=== PATIENT | female | born 1950 | race Caucasian/White ===

== ENCOUNTER 2019-12-06 08:10 | Outpatient (REF) | payer MEDICARE, SELFPAY ==
--- NOTE | 2019-12-06 | MM_ITS ---
EXAMINATION: MM SCREENING DIGITAL BREAST TOMOSYNTHESIS, BILATERAL CLINICAL INFORMATION: Screening. Asymptomatic. Family history breast cancer in cousins. The lifetime risk of breast cancer based on the Tyrer-Cuzick Model is 5%. COMPARISON: Mammography: 11/23/2018, 10/24/2017, 10/10/2016, 09/12/2015 TECHNIQUE: Digital breast tomosynthesis is performed in both the craniocaudal and mediolateral oblique views along with computer-aided detection (CAD). Synthesized 2D images are generated from the tomosynthesis. Additional left MLO view is provided. FINDINGS: There are scattered areas of fibroglandular density (ACR BI-RADS breast composition Category b). Breast tissue composition borders on heterogeneously dense in the anterior upper outer quadrant. There are no significant masses, abnormal calcifications, or other abnormalities. Interval pattern is similar to prior studies. No developing density. No significant changes. IMPRESSION: No significant changes from prior studies. ASSESSMENT: BI-RADS 1: Negative RECOMMENDATION: Routine annual mammography screening. This patient's information was entered into a reminder system with a target due date for their next mammogram.
== END 2019-12-06 08:11 | disposition home or self-care (01) ==
LOC: HO.MAMMO 08:10
PROVIDERS: PCP Internal Medicine; Visit Provider Internal Medicine
DX: Z12.31 Encounter for screening mammogram for malignant neoplasm of breast (principal)
CPT/HCPCS: 77063; 77067

== ENCOUNTER 2020-05-04 08:46 | Outpatient (REF) | payer MEDICARE, SELFPAY ==
--- NOTE | ~2020-05-04 | XR_ITS ---
EXAMINATION: XR KNEE, RIGHT XR KNEE STANDING, BILATERAL CLINICAL INFORMATION: Pain right knee. COMPARISON: None TECHNIQUE: AP bilateral knees standing. Right knee 2 views. FINDINGS: AP BILATERAL KNEE: There is reduction in medial and lateral compartment joint space both knees with mild periarticular spurring lateral compartment right knee. No visible acute fracture, dislocation or subluxation seen. The soft tissues are normal. RIGHT KNEE: The tricompartment joint space is reduced with anterior superior patellar enthesophyte. There is mild suprapatellar joint effusion. Mild anterior tibial plateau spurring is visualized. There is no acute fracture or lytic process. XR/XR knee RT 2V IMPRESSION: Mild degenerative changes medial and lateral compartment both knees. Degenerative anterior superior patellar enthesophyte and anterior tibial plateau spurring.
--- NOTE | ~2020-05-04 | XR_ITS ---
EXAMINATION: XR KNEE, RIGHT XR KNEE STANDING, BILATERAL CLINICAL INFORMATION: Pain right knee. COMPARISON: None TECHNIQUE: AP bilateral knees standing. Right knee 2 views. FINDINGS: AP BILATERAL KNEE: There is reduction in medial and lateral compartment joint space both knees with mild periarticular spurring lateral compartment right knee. No visible acute fracture, dislocation or subluxation seen. The soft tissues are normal. RIGHT KNEE: The tricompartment joint space is reduced with anterior superior patellar enthesophyte. There is mild suprapatellar joint effusion. Mild anterior tibial plateau spurring is visualized. There is no acute fracture or lytic process. XR/XR knee standing BI IMPRESSION: Mild degenerative changes medial and lateral compartment both knees. Degenerative anterior superior patellar enthesophyte and anterior tibial plateau spurring.
== END 2020-05-04 08:47 | disposition home or self-care (01) ==
LOC: HO.HOSX 08:46
PROVIDERS: Visit Provider Orthopaedic Surgery
DX: M25.561 Pain in right knee (principal); M25.562 Pain in left knee; S76.301A Unspecified injury of muscle, fascia and tendon of the posterior muscle group at thigh level, right thigh, initial encounter; W01.0XXA Fall on same level from slipping, tripping and stumbling without subsequent striking against object, initial encounter; Y93.01 Activity, walking, marching and hiking; Y92.9 Unspecified place or not applicable; Y99.8 Other external cause status; Z88.1 Allergy status to other antibiotic agents
CPT/HCPCS: 73560; 73565; 99202

== ENCOUNTER 2020-07-02 10:00 | Outpatient (RCR) | payer MEDICARE, SELFPAY ==
--- NOTE | 2020-05-10 13:58 | MHC.PT.EP ---
[facility] [place] Office [place] [facility] [place] [facility] [address] Basia Nowak [address] [phone] F: [phone] F: [phone] F: [phone] F: [phone] Physical Therapy Plan of Care Date of Evaluation: 05/10/20 Date of Surgery: Diagnosis: right leg injury Assessment: The Pt is a 69 y/o female referred to skilled PT for unspecified injury of muscle, fascia, and tendon. Specifically, the Pt reports posterior right knee/upper leg pain. Assessment reveals tenderness to palpation, decreased knee range of motion, impaired strength, decreased quad control, mild inflammation, altered gait pattern, pain, (+) special tests, and decreased muscle length. Related functional limitations include: walking, descending/ascending stairs, squatting, lifting, getting into/out of the bath, housework, hiking, getting in/out of the car, standing. Pt will benefit from skilled PT services 1-2x/week for 5-10 weeks in order to reduce impairments, improve limitations, and implement a comprehensive HEP. Frequency and Duration: The patient will be seen 1-2x/week for 5-10 weeks Short Term Goals: -In 2 weeks, Pt to demonstrate rastafari of right knee extension. -In 3 weeks, Pt to report <6/10 pain w/ 100 ft of ambulation. Mineral Wool Insulation Supervisor Goals: -In 4 weeks, Pt to demonstrate I w/ HEP. -In 5 weeks, to demonstrate the ability to ascend/descend a flight of stairs reciprocally and <3/10 pain. -In 5 weeks, Pt to improve LEFI by at least 9 points. Treatment Plan: Modalities to reduce pain, spasms and effusion. Manual therapy to restore motion and function. Therapeutic exercise to improve strength and flexibility. Neuromuscular re-education for posture and balance. Therapeutic activities to return to functional activities of daily living. Electronically signed by: Melanie Elliott PT, DPT Please sign and return to therapist. Thank you for your referral.
== END 2020-07-27 12:46 | disposition other institution (70) ==
LOC: HO.PTWFD 10:00
PROVIDERS: PCP Internal Medicine; Visit Provider Orthopaedic Surgery
DX: S76.309A Unspecified injury of muscle, fascia and tendon of the posterior muscle group at thigh level, unspecified thigh, initial encounter (principal)
CPT/HCPCS: 97035; 97110; 97140; 97161

== ENCOUNTER → 2020-08-27 10:36 | Outpatient (BNVA) | payer MEDICARE, SELFPAY | PROVIDERS: PCP Internal Medicine; Referring Provider Internal Medicine; Visit Provider Internal Medicine Cardiovascular Disease | DX: R00.2 Palpitations (principal); E78.5 Hyperlipidemia, unspecified | CPT/HCPCS: 99202 ==

== ENCOUNTER → 2020-08-31 07:46 | Outpatient (REF) | payer MEDICARE, SELFPAY ==
--- NOTE | 2020-08-31 07:50 | CA_ITS ---
Acquisition Time: 2020-08-31 07:50:02 Total Exercise Time: 00:08:55 Test Indications: Abnormal ECG Medications: Protocol: SHERIN Max HR: 146 BPM 96% of Pred: 151 BPM Max BP: 138/088 mmHG Max Work Load: 10.1 METS Exercise stress test using Sherin protocol total of 8 min 55 sec. Pt tolerated well, denies any anginal sx. EKG with PVC's and occ. PAC's. No ischemic changes during exercise or in recovery. Normotensive response to exercise. Test reviewed with Dr. Morelos. Referred By: Torsten Arora Overread By: Araceli Gomez NP
== END ==
LOC: HO.CARD 07:46
PROVIDERS: Visit Provider Internal Medicine Cardiovascular Disease
DX: R00.2 Palpitations (principal)
CPT/HCPCS: 93017

== ENCOUNTER 2020-09-28 08:07 | Outpatient (REF) | payer MEDICARE, SELFPAY ==
[2020-09-28 11:27] LABS: MANUAL DIFF FLAG NO
[2020-09-28 11:40] LABS: Basophils Percent Auto 0.5 % (0-2); Eosinophils Absolute Auto 0.1 X10*3/uL (0.0-0.4); Eosinophils Percent Auto 1.4 % (0-4); Hematocrit 41.5 % (37-47); Hemoglobin 13.7 g/dl (12.0-16.0); Imm Gran Abs Auto 0.01 X10*3/uL (0.00-0.03); Imm Gran Pct Auto 0.2 % (0.0-0.4); Lymphocytes Absolute Auto 1.7 X10*3/uL (1.2-4.9); Lymphocytes Percent Auto 39.8 % (20-40); Mean Corpuscular Hemoglobin 31.9 pg (27.0-33.0); Mean Corpuscular Volume 96.7 fL (80-98); Mean Platelet Volume 9.3 fL (9.4-12.3); Monocytes Absolute Auto 0.5 X10*3/uL (0.1-1.2); Monocytes Percent Auto 10.7 % (2-11); Neutrophils Percent Auto 47.4 % (45-73); Platelet Count 246 X10*3/uL (160-400); Red Blood Count 4.29 X10*6/uL (4.20-5.50); Red Cell Distribution Width 13.1 % (11.0-16.0); White Blood Count 4.2 X10*3/uL (4.8-10.8)
[2020-09-28 12:18] LABS: Alanine Aminotransferase 22 U/L (0-31); Albumin Level 4.2 g/dL (3.5-5.0); Alkaline Phosphatase 57 U/L (39-117); Anion Gap 14 (12-20); Aspartate Amino Transferase 26 U/L (5-31); Bilirubin Total 0.6 mg/dL (0.0-1.0); Blood Urea Nitrogen 11 mg/dL (9-16); Calcium 8.9 mg/dL (8.4-10.2); Carbon Dioxide 27 mmol/L (22-29); Chloride 105 mmol/L (96-108); Cholesterol 266 mg/dL; Estimated Glomerular Filt Rate > 60; Glucose Fasting 90 mg/dL (60-99); HDL Cholesterol 75 mg/dL; LDL Cholesterol Calculated 170 mg/dl; Potassium 4.7 mmol/L (3.3-5.1); Sodium 141 mmol/L (135-145); Total Protein 6.8 g/dL (6.5-8.0); Triglycerides 109 mg/dL
[2020-09-28 12:19] LABS: Thyroid Stimulating Hormone 1.48 uIU/mL (0.32-4.0)
== END 2020-09-28 08:08 | disposition home or self-care (01) ==
LOC: HO.WFDLDS 08:07
PROVIDERS: Visit Provider Internal Medicine
DX: R00.0 Tachycardia, unspecified (principal); E78.00 Pure hypercholesterolemia, unspecified
CPT/HCPCS: 36415; 80053; 80061; 84439; 84443; 85025

== ENCOUNTER → 2020-10-05 09:18 | Outpatient (REF) | payer MEDICARE, SELFPAY ==
--- NOTE | 2020-10-05 09:20 | CA_ITS ---
Transthoracic Echocardiogram Patient (Last, First, Middle): Olga Galvez A Gender: Female Date of : 1950 Age: 69 Procedure Date: 10/05/2020 Procedure Type: Transthoracic Echocardiogram Location: OP Height: 160.02 cm Weight: 61.24 kg BSA: 1.64 m2 Heart Rate: bpm BP: 121 / 70 mmHg Child Abuse Worker: Bj MD: Torsten Arora MD Machine Packager: Torsten Arora MD Symptoms: R00.2 - Palpitations Study Quality: Fair ECG Rhythm: Sinus Conclusions: - 1. Normal LV systolic function with grade 1 diastolic dysfunction 2. Trivial aortic regurgitation 3. Normal RV systolic pressure 4. No gross pericardial effusion Findings Left Ventricle Normal left ventricular size, thickness, and systolic function. The visually estimated ejection fraction is between 60-65%. Spectral Doppler is indicative of an impaired relaxation filling pattern. E/E prime ratio is <8, consistent with normal filling pressures. Evidence suggests grade I (mild) diastolic dysfunction. Right Ventricle Normal right ventricular cavity size and systolic function. Atria The left atrium is likely dilated. There is no evidence of interatrial shunt. The right atrium is normal in size. Aortic Valve The aortic valve structure and function is likely normal. There is mild calcification of the aortic valve. There is no aortic valve stenosis. There is trace (trivial) aortic valve regurgitation. Mitral Valve There is mild anterior and posterior mitral leaflet thickening. There is mild mitral annular calcification. There is trace mitral valve regurgitation. There is no mitral valve stenosis. Pulmonic Valve The pulmonic valve was not well visualized. Tricuspid Valve Normal tricuspid valve structure. There is trace tricuspid valve regurgitation. The right ventricular systolic pressure is normal. The right ventricular systolic pressure is 29 mmHg. Normal right atrial pressure. There is no evidence of pulmonary hypertension. Great Vessels All visible segments of the aorta are normal in size. The pulmonary artery was not well visualized. Venous The inferior vena cava is normal in size and collapses greater than 50% with inspiration. Pericardium/Pleural There is no evidence of pericardial effusion. Prior Study Comparison No previous study in the last 5 years for comparison Measurements 2D Linear Measurements RVIDd: 3.02 RVIDd Index: 1.84 IVSd: 0.88 0.6-0.9/0.6-1.0 cm LVIDd: 4.59 3.9-5.3/4.2-5.9 cm LVIDd Index: 2.80 2.4-3.2/2.2-3.1 cm/m2 LVIDs: 3.09 2.0-3.6 cm LVPWd: 0.97 0.7-1.1 cm Ao Root: 3.10 2.1-3.5 cm LA Diam: 4.00 2.7-3.8/3.0-4.0 cm LAIDs Index: 2.44 1.5-2.3 cm/m2 LV Mass: 176.04 67-162/88-224 g LV Mass Index: 107.34 43-95/49-115 g/m2 LVOT Diam: 2.00 3.0+(-)1.3 cm 2D Systolic Function EF 4C: 64.30 >55% EF 2C: 66.60 >55% EF BiP: 65.50 >55% Mitral Valve MV Pk E: 0.47 MV PK A: 0.47 MV Decel Time: 288.00 E/A: 1.00 E'Lateral: 8.81 E'Medial: 6.74 E/E' Med: 6.90 E/E' Lat: 5.30 Aortic Valve AoV Pk David: 1.23 AoV Mn David: 0.89 AoV VTI: 0.28 AoV Pk Grad: 6.00 Aov Mn Grad: 4.00 KIRSTEN Cont.VTI: 2.18 AI Pk David: 3.46 AI Sully: 1.56 LVOT LVOT Pk David: 0.86 LVOT Mn David: 0.59 LVOT VTI: 0.19 LVOT Pk Grad: 3.00 LVOT Mn Grad: 2.00 LVOT Diam: 2.00 LVOT Area: 3.14 Diastolic Function MV Pk E: 0.47 MV Pk A: 0.47 E/A: 1.00 E'Medial: 6.74 E/E' Med: 6.90 E' Laterial: 8.81 E/E' Lat: 5.30 Right Ventricle TAPSE (mm): 24.00 TVS' David: 14.70 Tricuspid Valve TR Pk David: 2.54 TR Pk Grad: 26.00 RA Press: 3.00 RVSP: 29.00 Great Vessels Aorta Ao Root-2D: 3.10 2.0-3.7 cm Ao Asc: 2.90 2.1-3.4 cm Ao Arch: 3.00 Updated in Other Vendor System with Status of Final Torsten Arora MD electronically signed on 10/06/2020 2:06:53 PM with status of Final
== END ==
LOC: HO.CARD 09:18
PROVIDERS: Visit Provider Internal Medicine Cardiovascular Disease
DX: R00.2 Palpitations (principal)
CPT/HCPCS: 93306

== ENCOUNTER → 2020-11-28 13:51 | Outpatient (REF) | payer MEDICARE, SELFPAY ==
--- NOTE | 2020-11-28 13:54 | HM_ITS ---
Hookup date was 11/28/2020 to 12/12/2020 for a total period of 14 days. INDICATION FOR TEST: Palpitation. FINDINGS: The patient was hooked up to cardiac event monitor. Baseline rhythm was normal sinus rhythm with average heart rate from 81 to 121 beats per minute. There were frequent PACs and PVCs noted. The patient did not have any symptoms during that time. On 12/10/2020, the patient complained of urgent symptoms of racing fluttering, which correlated with SVT at 197 beats per minute. The patient then converted subsequently to sinus rhythm after about 25 to 30 minutes of the episode. CONCLUSION: 1. Symptomatic SVT at about 200 beats per minute. 2. Baseline normal sinus rhythm with PACs and PVCs. Torsten Arora MD NRS/MODL / [id number]
== END ==
LOC: HO.CARD 13:51
PROVIDERS: PCP Internal Medicine; Visit Provider Internal Medicine Cardiovascular Disease
DX: R00.2 Palpitations (principal)
CPT/HCPCS: 93270

== ENCOUNTER 2020-12-05 08:55 | Outpatient (REF) | payer MEDICARE, SELFPAY ==
[2020-12-08 01:36] LABS: HPV mRNA E6/E7 rflx Not Detected (Not Detected)
== END 2020-12-05 08:56 | disposition home or self-care (01) ==
LOC: HO.LAB 08:55
PROVIDERS: PCP Internal Medicine; Visit Provider Advanced Practice Midwife
DX: Z01.419 Encounter for gynecological examination (general) (routine) without abnormal findings (principal)
CPT/HCPCS: 87624; 88142

== ENCOUNTER → 2020-12-13 14:42 | Outpatient (BNVA) | payer MEDICARE, SELFPAY | PROVIDERS: PCP Internal Medicine; Referring Provider Internal Medicine; Visit Provider Internal Medicine Cardiovascular Disease | DX: I47.1 Supraventricular tachycardia (principal); E78.5 Hyperlipidemia, unspecified; Z79.899 Other long term (current) drug therapy | CPT/HCPCS: 99212 ==

== ENCOUNTER 2020-12-19 08:38 | Outpatient (REF) | payer MEDICARE, SELFPAY ==
--- NOTE | ~2020-12-19 | MM_ITS ---
EXAMINATION: MM SCREENING DIGITAL BREAST TOMOSYNTHESIS, BILATERAL CLINICAL INFORMATION: Screening. Asymptomatic. The lifetime risk of breast cancer based on the Tyrer-Cuzick Model is 3%. COMPARISON: Mammography: 12/06/2019, 11/23/2018, 11/03/2017 TECHNIQUE: Digital breast tomosynthesis is performed in both the craniocaudal and mediolateral oblique views along with computer-aided detection (CAD). Synthesized 2D images are generated from the tomosynthesis. FINDINGS: There are scattered areas of fibroglandular density (ACR BI-RADS breast composition Category b). There are no significant masses, abnormal calcifications, or other abnormalities. Breast tissue composition borders on heterogeneously dense. Parenchymal pattern is similar to prior studies. No developing density. No architectural abnormality. The axilla and skin contours are unremarkable. MM/MM tomosynthesis screening BI IMPRESSION: No mammographic evidence of malignancy. ASSESSMENT: BI-RADS 1: Negative RECOMMENDATION: Routine annual mammography screening. This patient's information was entered into a reminder system with a target due date for their next mammogram.
== END 2020-12-19 08:39 | disposition home or self-care (01) ==
LOC: HO.MAMMO 08:38
PROVIDERS: Visit Provider Internal Medicine
DX: Z12.31 Encounter for screening mammogram for malignant neoplasm of breast (principal)
CPT/HCPCS: 77063; 77067

== ENCOUNTER 2021-03-04 08:51 | Outpatient (REF) | payer MEDICARE, SELFPAY ==
[2021-03-04 11:58] LABS: Cholesterol 163 mg/dL; HDL Cholesterol 50 mg/dL; LDL Cholesterol Calculated 100 mg/dl; Triglycerides 69 mg/dL
[2021-03-05 13:25] LABS: CRP High Sensitivity 5.7 mg/L
== END 2021-03-04 08:52 | disposition home or self-care (01) ==
LOC: HO.WFDLDS 08:51
PROVIDERS: Visit Provider Internal Medicine Cardiovascular Disease
DX: E78.5 Hyperlipidemia, unspecified (principal); I25.10 Atherosclerotic heart disease of native coronary artery without angina pectoris
CPT/HCPCS: 36415; 80061; 86141

== ENCOUNTER → 2021-03-07 15:10 | Outpatient (BNVA) | payer MEDICARE, SELFPAY | PROVIDERS: PCP Internal Medicine; Referring Provider Internal Medicine; Visit Provider Internal Medicine Cardiovascular Disease | DX: I47.1 Supraventricular tachycardia (principal); R93.1 Abnormal findings on diagnostic imaging of heart and coronary circulation | CPT/HCPCS: 99212 ==

== ENCOUNTER 2021-04-11 08:52 | Outpatient (REF) | payer MEDICARE, SELFPAY ==
[2021-04-11 11:06] LABS: Cholesterol 239 mg/dL; HDL Cholesterol 76 mg/dL; LDL Cholesterol Calculated 146 mg/dl; Triglycerides 87 mg/dL
[2021-04-13 14:22] LABS: CRP High Sensitivity 4.9 mg/L
== END 2021-04-11 08:53 | disposition home or self-care (01) ==
LOC: HO.WFDLDS 08:52
PROVIDERS: Visit Provider Internal Medicine Cardiovascular Disease
DX: E78.5 Hyperlipidemia, unspecified (principal); I25.10 Atherosclerotic heart disease of native coronary artery without angina pectoris
CPT/HCPCS: 36415; 80061; 86141

== ENCOUNTER 2021-04-19 06:28 | Day surgery (SDC) | payer MEDICARE, SELFPAY ==
[2021-04-12 12:33] VITALS: BMI 23.2
[2021-04-19 06:53] VITALS: BP 125/77; PULSE 75; RESP 16; TEMP 36.7; O2SAT 100
--- NOTE | 2021-04-19 07:13 | P.CONAN_ITS ---
[facility] Active Problems Active Problems: All Active Problems (Updated 04/12/21 @ 12:27 by Caitlyn Medina RN) Palpitations (Acute) Elevated coronary artery calcium score (Acute) SVT (supraventricular tachycardia) (Acute) Hyperlipidemia (Acute) Past Medical History Medical History CAD (coronary artery disease) COVID-19 virus infection Dysphagia Elevated cholesterol Elevated coronary artery calcium score Hyperlipidemia SVT (supraventricular tachycardia) WPW (Vmjeh-Fnhwadpsh-Lfgue syndrome) Functional capacity: independent ambulation Patient : No Family History Family History Father Gastric cancer Mother CVD (cardiovascular disease) Family history of problems with anesthesia: No Surgical History Surgical History H/O colonoscopy History of cardiac radiofrequency ablation History of esophagogastroduodenoscopy (EGD) History of surgery on wrist History of surgical removal of ganglion cyst Hx of foot surgery History of Problems with Anesthesia: No Social History Social History Patient Tobacco Use Status: Former Tobacco user Tobacco use type: Cigarette Years Smoked: 10 Advance Directives: No Advance Directives Information Provided: No Advance Directives on File: No Patient : No Current occupational status: retired Current occupation: right handed Meds Allergies Allergy/AdvReac Type Severity Reaction Status Date / Time amoxicillin [AMOXICILLIN] Allergy Unknown HIVES Verified 12/05/20 09:08 Home Medications Medication Instructions Recorded Confirmed Last Taken Type multivitamin 1 tab PO DAILY 08/27/20 03/07/21 Unknown History metoprolol tartrate 25 mg tablet 1 tab PO BID PRN 04/18/21 04/18/21 Unknown History Exam Exam Date and Time: April 19, 2021712 Height,Weight and Vital Signs: Height 5 ft 3 in Weight 59.421 kg Last Vital Signs Temp 98.1 F 04/19/21 06:53 Pulse 75 04/19/21 06:53 Resp 16 04/19/21 06:53 BP 125/77 04/19/21 06:53 Pulse Ox 100 04/19/21 06:53 Airway Mallampati Class: II TM Dist: >3cm Neck ROM: Full Heart: RRR Lungs: CTA Assessment and Plan Final Anesthetic Review Family History of Problems with Anesthesia: No History of Problems with Anesthesia: No NPO: Yes ASA Class: II Final Preanesthetic Review: No Changes in Pt Med Stat, Meds/Allgs Chart Reviewed, Consent Obtained/Reviewed and Anes Risks/Benef Reviewed Patient Risk: Low Procedure Risk: Low Anesthetic Plan Anesthetic Plan: MAC: Disposition: Standard PACU
--- NOTE | 2021-04-19 07:24 | MHC.SHP ---
Pre-Procedural Eval Section A Date of Service: 04/19/21 Section B Chief Complaint: screening Details of Present Illness: screening Relevant Family History (Specify if Yes): No Relevant Social History: None Present Medications: see Short Stay Collaborative assessment Medical History: No relevant PMH History of Previous Operations: No relevant previous surgery Allergies: Allergies Allergy/AdvReac Type Severity Reaction Status Date / Time amoxicillin [AMOXICILLIN] Allergy Unknown HIVES Verified 12/05/20 09:08 Review of Systems Sugical H&P ROS: Negative: Constitution, Cardiovascular, Respiratory, Neurological, Psychiatric, Hem-Onc, Allergic/Immunologic, Gastrointestinal, Genitourinary, Musculoskeletal, Integumentary, Endocrine and Eyes/Ears/Nose/Throat Exam Surgical H&P Exam: Normal: HEENT, Normal: Heart, Normal: Lungs, Normal: Extremities, Normal: Abdomen, Normal: Skin and Normal: Neurological Plan I have reviewed the history and physical and performed a pertinent physical examination on my patient. No changes have occurred unless specified.
[2021-04-19] MEDS: Lactated Ringers 1,000 ML 100 ML IVCONT (07:30)
--- NOTE | 2021-04-19 08:02 | P.BOP_ITS ---
Brief Operative Note Date of Service: 04/19/21 Pre-op diagnosis: screening Post-op diagnosis: same (colon polyp) Procedure: colonoscopy Surgeon: Nic Giraldo Anesthesia: MAC Was an Chemical Radiation Technician used for this Procedure?: No Estimated blood loss (mL): 2 Pathology: other (polyp 60 cm) Condition: stable Disposition: PACU
[2021-04-19 08:05] VITALS: BP 87/54; PULSE 70; RESP 16; TEMP 36.1; O2SAT 95
[2021-04-19 08:20] VITALS: BP 117/65; PULSE 62; RESP 16; TEMP 36.1; O2SAT 99
--- NOTE | 2021-04-19 08:33 | OP_ITS ---
SURGEON: Nic Giraldo MD INDICATIONS: Colon cancer screening. PREOPERATIVE DIAGNOSIS: POSTOPERATIVE DIAGNOSIS: PROCEDURE PERFORMED: Colonoscopy to the terminal ileum with biopsy. ESTIMATED BLOOD LOSS: COMPLICATIONS: ANESTHESIA: Monitored anesthesia care. ASSISTANTS: SPECIMENS: DESCRIPTION OF PROCEDURE: The history and physical were performed. The risks and benefits of the procedure were explained to the patient and informed consent was obtained. The patient was placed in the left lateral decubitus position. A digital rectal exam was performed and was found to be normal. The Olympus pediatric video colonoscope was introduced into the rectum and advanced to the cecum without difficulty. The cecum was identified by transillumination, palpation, and identification of the ileocecal valve. Examination was performed. The scope was removed. She tolerated the procedure well and was returned to the recovery area in stable condition. FINDINGS: The terminal ileum was examined and appeared normal. The visualized colonic mucosa was within normal limits without evidence of masses or ulcers. The quality of the prep was good. A single polyp measuring less than 5 mm was identified at 60 cm and removed with biopsy forceps. No other polyps were identified. There was mild sigmoid diverticulosis. Retroflexed examination showed some small internal hemorrhoids. IMPRESSION: Colon polyp. RECOMMENDATION: Follow up the biopsy results. MD WILVER Kelly/NIHARIKAL / [id number]
--- NOTE | 2021-04-19 11:00 | HO.POSTANES ---
Post Anesthesia Evaluation Post Anesthesia Evaluation Vital Signs: Vital Signs Temp Pulse Resp BP Pulse Ox 04/19/21 08:20 97.0 F 62 16 117/65 99 04/19/21 08:05 96.9 F 70 16 87/54 L 95 04/19/21 06:53 98.1 F 75 16 125/77 100 Anesthesia: Monitored Mental Status: Awake Pain Control: Satisfactory Nausea/Vomiting: None Hydration: Adequate Anesthesia-Related Issues: No Anes. Related Issues
== END 2021-04-19 09:02 | disposition home or self-care (01) ==
PROVIDERS: PCP Internal Medicine; Visit Provider Internal Medicine Gastroenterology
PROC: 0DJD8ZZ Inspection of Lower Intestinal Tract, Via Natural or Artificial Opening Endoscopic (ICD-10-PCS; CPT 45378; principal; 2021-04-19 07:30)
DX: Z12.11 Encounter for screening for malignant neoplasm of colon (principal); D12.4 Benign neoplasm of descending colon; K57.30 Diverticulosis of large intestine without perforation or abscess without bleeding; K64.8 Other hemorrhoids; I45.6 Pre-excitation syndrome; Z82.49 Family history of ischemic heart disease and other diseases of the circulatory system; Z80.0 Family history of malignant neoplasm of digestive organs; Z86.16 Personal history of COVID-19; Z86.11 Personal history of tuberculosis; Z88.0 Allergy status to penicillin
CPT/HCPCS: 45380; 88305

== ENCOUNTER 2021-06-20 08:26 | Outpatient (REF) | payer MEDICARE, SELFPAY ==
[2021-06-20 11:11] LABS: Cholesterol 215 mg/dL; HDL Cholesterol 87 mg/dL; LDL Cholesterol Calculated 115 mg/dl; Triglycerides 68 mg/dL
== END 2021-06-20 08:27 | disposition home or self-care (01) ==
LOC: HO.WFDLDS 08:26
PROVIDERS: Visit Provider Internal Medicine Cardiovascular Disease
DX: E78.5 Hyperlipidemia, unspecified (principal)
CPT/HCPCS: 36415; 80061

== ENCOUNTER 2021-10-10 07:25 | Outpatient (REF) | payer MEDICARE, SELFPAY ==
[2021-10-10 08:39] LABS: Cholesterol 206 mg/dL; HDL Cholesterol 79 mg/dL; LDL Cholesterol Calculated 105 mg/dl; Triglycerides 111 mg/dL
[2021-10-12 11:31] LABS: CRP High Sensitivity 5.6 mg/L
== END 2021-10-10 07:26 | disposition home or self-care (01) ==
LOC: HO.LAB 07:25
PROVIDERS: PCP Internal Medicine; Visit Provider Internal Medicine Cardiovascular Disease
DX: R93.1 Abnormal findings on diagnostic imaging of heart and coronary circulation (principal); E78.5 Hyperlipidemia, unspecified
CPT/HCPCS: 36415; 80061; 86141

== ENCOUNTER 2021-12-25 08:16 | Outpatient (REF) | payer MEDICARE, SELFPAY ==
--- NOTE | ~2021-12-25 | MM_ITS ---
EXAMINATION: MM SCREENING DIGITAL BREAST TOMOSYNTHESIS, BILATERAL CLINICAL INFORMATION: Screening. Asymptomatic. COMPARISON: Mammography: 12/19/2020, 12/06/2019, 11/23/2018 TECHNIQUE: Digital breast tomosynthesis is performed in both the craniocaudal and mediolateral oblique views along with computer-aided detection (CAD). Synthesized 2D images are generated from the tomosynthesis. FINDINGS: There are scattered areas of fibroglandular density (ACR BI-RADS breast composition Category b). There are no significant masses, abnormal calcifications, or other abnormalities. Breast tissue composition borders on heterogeneously dense. There is no architectural abnormality or developing density or significant change from prior studies. The axilla are unremarkable. The skin contours are smooth. MM/MM tomosynthesis screening BI IMPRESSION: No mammographic evidence of malignancy. ASSESSMENT: BI-RADS 1: Negative RECOMMENDATION: Routine annual mammography screening. This patient's information was entered into a reminder system with a target due date for their next mammogram.
== END 2021-12-25 08:17 | disposition home or self-care (01) ==
LOC: HO.MAMMO 08:16
PROVIDERS: Visit Provider Internal Medicine
DX: Z12.31 Encounter for screening mammogram for malignant neoplasm of breast (principal)
CPT/HCPCS: 77063; 77067

== ENCOUNTER 2022-03-05 07:14 | Outpatient (REF) | payer MEDICARE, SELFPAY ==
[2022-03-05 07:28] LABS: MANUAL DIFF FLAG NO
[2022-03-05 07:54] LABS: Basophils Percent Auto 0.4 % (0-2); Eosinophils Absolute Auto 0.1 X10*3/uL (0.0-0.4); Hematocrit 42.4 % (37.0-47.0); Hemoglobin 14.1 g/dl (12.0-16.0); Imm Gran Abs Auto 0.02 X10*3/uL (0.00-0.03); Imm Gran Pct Auto 0.4 % (0.0-0.4); Lymphocytes Absolute Auto 1.5 X10*3/uL (1.2-4.9); Lymphocytes Percent Auto 31.5 % (20-40); Mean Corpuscular HGB Conc 33.3 g/dl (31.0-35.0); Mean Corpuscular Hemoglobin 31.7 pg (27.0-33.0); Mean Corpuscular Volume 95.3 fL (80.0-98.0); Mean Platelet Volume 8.8 fL (9.4-12.3); Monocytes Absolute Auto 0.6 X10*3/uL (0.1-1.2); Monocytes Percent Auto 11.9 % (2-11); Neutrophils Absolute Auto 2.6 x10*3/uL (2.0-8.3); Neutrophils Percent Auto 54.8 % (45-73); Platelet Count 278 X10*3/uL (160-400); Red Blood Count 4.45 X10*6/uL (4.20-5.50); Red Cell Distribution Width 12.3 % (11.0-16.0); White Blood Count 4.8 X10*3/uL (4.8-10.8)
[2022-03-05 08:19] LABS: Cholesterol 143 mg/dL; HDL Cholesterol 64 mg/dL; LDL Cholesterol Calculated 69 mg/dl; Triglycerides 54 mg/dL
[2022-03-05 08:27] LABS: Alanine Aminotransferase 33 U/L (0-31); Albumin Level 4.2 g/dL (3.5-5.0); Alkaline Phosphatase 41 U/L (39-117); Anion Gap 13 (12-20); Aspartate Amino Transferase 34 U/L (5-31); Bilirubin Total 0.4 mg/dL (0.0-1.0); Blood Urea Nitrogen 13 mg/dL (9-16); Calcium 9.6 mg/dL (8.4-10.2); Carbon Dioxide 28 mmol/L (22-29); Chloride 106 mmol/L (96-108); Estimated Glomerular Filt Rate > 60; Glucose Random 95 mg/dL (60-115); Potassium 4.8 mmol/L (3.3-5.1); Sodium 142 mmol/L (135-145); Total Protein 6.5 g/dL (6.5-8.0)
[2022-03-07 14:37] LABS: CRP High Sensitivity 2.7 mg/L
== END 2022-03-05 07:15 | disposition home or self-care (01) ==
LOC: HO.LAB 07:14
PROVIDERS: Absent Provider Internal Medicine; PCP Internal Medicine; Visit Provider Internal Medicine Cardiovascular Disease
DX: I47.1 Supraventricular tachycardia (principal); E78.00 Pure hypercholesterolemia, unspecified; R25.2 Cramp and spasm; R93.1 Abnormal findings on diagnostic imaging of heart and coronary circulation; E78.5 Hyperlipidemia, unspecified
CPT/HCPCS: 36415; 80053; 80061; 83735; 84443; 85025; 86141

== ENCOUNTER → 2022-03-10 13:03 | Outpatient (BNVA) | payer MEDICARE, SELFPAY | PROVIDERS: PCP Internal Medicine; Visit Provider Internal Medicine Cardiovascular Disease | DX: I47.1 Supraventricular tachycardia (principal); R93.1 Abnormal findings on diagnostic imaging of heart and coronary circulation | CPT/HCPCS: 93005; 99212 ==

== ENCOUNTER 2022-12-31 08:16 | Outpatient (REF) | payer MEDICARE, SELFPAY | END 2022-12-31 08:17 | disposition home or self-care (01) | LOC: HO.MAMMO 08:16 | PROVIDERS: PCP Internal Medicine; Visit Provider Internal Medicine | DX: Z12.31 Encounter for screening mammogram for malignant neoplasm of breast (principal) | CPT/HCPCS: 77063; 77067 ==

== ENCOUNTER → 2022-12-31 08:30 | Outpatient (BNV) | payer MEDICARE, SELFPAY | PROVIDERS: PCP Internal Medicine; Visit Provider Radiology Diagnostic Radiology | DX: Z12.31 Encounter for screening mammogram for malignant neoplasm of breast (principal) | CPT/HCPCS: 77063; 77067 ==

== ENCOUNTER 2023-04-03 08:31 | Outpatient (AMB) | payer MEDICARE, SELFPAY ==
[2023-04-03 08:34] VITALS: BP 110/68; PULSE 68; BMI 24.4
--- NOTE | 2023-04-03 08:34 | MHC.OFFVIS ---
Intake Vital Signs 04/03/23 08:34 Height 5 ft 3 in Weight 138 lb BMI 24.4 BP 110/68 Blood Pressure Location Lt brachial Position Sitting Pulse 68 Intake Visit Reasons: 1 year fu Intake Note: 1 year follow-up with ekg feeling good Tire And Lube Technician Required: No Allergies amoxicillin [AMOXICILLIN] Allergy (Unknown, Verified 03/10/22 13:21) HIVES Medication List - Last Reconciled 04/03/23 by Torsten Arora MD acyclovir 5% (Zovirax) 1 appl topical 6XD PRN 7 days ezetimibe 10 mg PO DAILY metoprolol succinate ER 25 mg PO DAILY metoprolol tartrate 1 tab PO BID PRN multivitamin 1 tab PO DAILY rosuvastatin 20 mg PO DAILY 30 days valacyclovir (Valtrex) 500 mg PO BID PRN 3 days HPI HPI Comments History of Present Illness Details Olga comes for follow-up. She still gets occasional symptoms of palpitations but usually resolves very quickly when she lays down. She has not had a full-blown significant episode of SVT. She feels that her heart is fluttering sometimes. Today she came in and she is has PACs but does not complain of any palpitations. No exertional chest pain or shortness of breath. One episode when she was walking she got lightheaded but no associated other symptoms. She denies any shortness of breath, orthopnea, PND, leg edema. [facility] Medical History Abnormal Pap smear of cervix Elevated cholesterol CAD (coronary artery disease) Dysphagia COVID-19 virus infection WPW (Epmwh-Vivwcshts-Fnhxp syndrome) Elevated coronary artery calcium score SVT (supraventricular tachycardia) Hyperlipidemia Surgical History History of surgery on wrist History of surgical removal of ganglion cyst Hx of foot surgery History of esophagogastroduodenoscopy (EGD) H/O colonoscopy History of cardiac radiofrequency ablation Family History Father Gastric cancer Mother CVD (cardiovascular disease) Social History Alcohol intake: current Alcohol intake frequency: 0-2 drinks per day Patient Tobacco Use Status: Former Tobacco user Quit Date: 40 years ago Tobacco use type: Cigarette Years Smoked: 10 Current occupational status: retired Current occupation: right handed Sexual orientation: Straight/Heterosexual Gender identity: Female Review of Systems Const Denies chills, Denies fatigue, Denies fever(s), Denies frequent falls, Denies weakness, Denies weight gain and Denies weight loss ENT Denies dizziness Card Denies chest pain, Denies leg edema, Denies lightheadedness, Denies palpitations, Denies dyspnea, Denies dyspnea on exertion, Denies orthopnea and Denies other (loss of consciousness) Resp Denies cough, Denies dyspnea and Denies dyspnea on exertion GI Denies hematochezia and Denies change in stool character Musc Denies abnormal gait, Denies muscle weakness, Denies numbness, Denies radiating pain into limb and Denies tingling Neuro Denies abnormal gait, Denies dizziness, Denies frequent falls, Denies numbness, Denies tingling and Denies weakness Endo Denies fatigue and Denies palpitations Physical Exam Vital Signs: Last Vital Signs Pulse 68 04/03/23 08:34 BP 110/68 04/03/23 08:34 BMI result Body Mass Index 24.4 Const General: cooperative, comfortable, no acute distress, alert, awake, Physically active and well groomed Nutritional Appearance: thin Orientation/consciousness: patient oriented x3 Limitations: no limitations HEENT Head: Yes normocephalic and Yes atraumatic Neck Neck: Yes trachea midline, Yes supple and Yes no JVD Resp Effort & Inspection: normal respiratory effort Auscultation: clear to auscultation bilaterally Cardio Jugular venous distension: no JVD Palpation: normal PMI Rate: regular rate Rhythm: regular rhythm Heart sounds: S1 normal heart sound present and S2 normal heart sound present Bruits: no carotid bruits Peripheral pulses: Peripheral pulses 2+ throughout GI Auscultation: normal bowel sounds Skin General skin exam: no rashes or lesions noted Neuro General: patient oriented x3 and no focal motor deficits Extrem General: Yes no clubbing, cyanosis or edema Psych Appearance: grossly normal Office Procedures EKG Details: EKG shows normal sinus rhythm with PACs with nonspecific ST changes [id number], Complete Assessment & Plan Assessment & Plan (1) SVT (supraventricular tachycardia): Code(s): I47.1 - Supraventricular tachycardia Plan: Prior history of highly symptomatic SVT which has remained suppressed on metoprolol therapy. Has done well with it with overall much improvement in symptoms and suppression of her arrhythmias. She occasionally still gets symptoms of palpitation today does have PACs. We discussed about avoidance of stimulants. We discussed about vagal maneuvers. If she continues to have recurrent episodes she is advised to call my office. (2) Elevated coronary artery calcium score: Comment: sees Code(s): R93.1 - Abnormal findings on diagnostic imaging of heart and coronary circulation Plan: Patient with elevated coronary calcium score consistent with coronary atherosclerosis. Currently doing well with no significant exertional symptoms that would suggest myocardial ischemia. At this point time continue aggressive vascular risk factor modification. Continue statin and ezetimibe therapy. Target goal LDL less than 70 mg/dL. Advised lipid panel near future which is being pursue through your office. Will follow up in the clinic in 1 year's time, sooner p.r.n.. Thank you for allowing me to partake in her care Coding Level of Care Code Est Pt Level 4 (78672) Diagnoses SVT (supraventricular tachycardia) I47.1 Elevated coronary artery calcium score R93.1 CPT Codes EKG - CPT: 08339-[id number], Complete ([id number])
== END 2023-04-03 08:57 | disposition home or self-care (01) ==
PROVIDERS: PCP Internal Medicine; Visit Provider Internal Medicine Cardiovascular Disease
DX: I47.10 Supraventricular tachycardia, unspecified (principal); R93.1 Abnormal findings on diagnostic imaging of heart and coronary circulation
CPT/HCPCS: 93010; 99214

== ENCOUNTER → 2023-04-03 08:31 | Outpatient (BNVA) | payer MEDICARE, SELFPAY | PROVIDERS: PCP Internal Medicine; Visit Provider Internal Medicine Cardiovascular Disease | DX: I47.10 Supraventricular tachycardia, unspecified (principal); R93.1 Abnormal findings on diagnostic imaging of heart and coronary circulation | CPT/HCPCS: 93005; 99212 ==

== ENCOUNTER 2023-06-09 09:19 | Outpatient (REF) | payer MEDICARE, SELFPAY ==
--- NOTE | ~2023-06-09 | XR_ITS ---
EXAMINATION: XR KNEE, LEFT CLINICAL INFORMATION: Pain in left knee. COMPARISON: 05/04/2020. TECHNIQUE: AP standing, lateral and sunrise views of the left knee. FINDINGS: The bones are diffusely demineralized. Small joint effusion. Mild narrowing of the tricompartments with small tricompartmental osteophytes. XR/XR knee LT 3V IMPRESSION: Mild tricompartmental degenerative changes.
== END 2023-06-09 09:20 | disposition home or self-care (01) ==
LOC: HO.HOSX 09:19
PROVIDERS: Visit Provider Orthopaedic Surgery
DX: M25.562 Pain in left knee (principal)
CPT/HCPCS: 73562; 99202

== ENCOUNTER 2023-06-09 12:40 | Outpatient (AMB) | payer MEDICARE, SELFPAY ==
[2023-06-09 12:54] VITALS: BMI 24.4
--- NOTE | 2023-06-09 12:54 | A.OFFVIS_ITS ---
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 The patient states that she 1st injured her left knee 2 years ago when she fell off of a bridge while hiking. She twisted her knee and had acute onset of pain. Since that time her symptoms have gotten progressively worse in spite of continued non operative treatments. She has tried physical therapy exercises as well as activity modifications which gave her minimal relief. She has also tried a knee brace which gives only mild relief. She has taken Tylenol and anti-inflammatory medicines which gave her no relief. Allergies amoxicillin [AMOXICILLIN] Allergy (Unknown, Verified 03/10/22 13:21) HIVES Medication List - Last Reconciled 06/09/23 by Mateo Esquivel MD acyclovir 5% (Zovirax) 1 appl topical 6XD PRN 7 days ezetimibe 10 mg PO DAILY metoprolol succinate ER 25 mg PO DAILY metoprolol tartrate 1 tab PO BID PRN multivitamin 1 tab PO DAILY rosuvastatin 20 mg PO DAILY 30 days valacyclovir (Valtrex) 500 mg PO BID PRN 3 days PFS Medical History Abnormal Pap smear of cervix Elevated cholesterol CAD (coronary artery disease) Dysphagia COVID-19 virus infection WPW (Kpspt-Adbsavekr-Mycdr syndrome) Elevated coronary artery calcium score SVT (supraventricular tachycardia) Hyperlipidemia Surgical History History of surgery on wrist History of surgical removal of ganglion cyst Hx of foot surgery History of esophagogastroduodenoscopy (EGD) H/O colonoscopy History of cardiac radiofrequency ablation Family History Father Gastric cancer Mother CVD (cardiovascular disease) Social History Alcohol intake: current Alcohol intake frequency: 0-2 drinks per day Patient Tobacco Use Status: Former Tobacco user Quit Date: 40 years ago Tobacco use type: Cigarette Years Smoked: 10 Current occupational status: retired Current occupation: right handed Sexual orientation: Straight/Heterosexual Gender identity: Female Physical Exam Vital Signs: BMI result Body Mass Index 24.4 Const Other: Well-nourished well-developed very friendly female awake alert and oriented x3 in no acute distress Extrem Other: Bilateral lower extremity examination shows good capillary refill, no skin lesions noted, normal sensation light touch Left knee examination shows a minimal effusion, minimal crepitus with range of motion, tenderness along her medial joint line, positive Teresita's test, no instability Results Reviewed Results Reviewed: Standing full weight-bearing x-rays of the patient's left knee show mild diffuse joint space narrowing, no acute bony abnormalities Assessment & Plan Assessment & Plan (1) Left knee pain: Code(s): M25.562 - Pain in left knee Category: Medical Plan Ms. Galvez presents with progressively worsening left knee pain and mechanical symptoms most likely due to a tear of her medial meniscus. Thus, I will send the patient for an MRI of her left knee for further evaluation. I will see her back once the MRI is completed to discuss the findings and treatment options. Feel free to call me at any time should questions regarding her orthopedic management arise. I spent 22 minutes in reviewing the patient's records and imaging studies, seeing the patient and documenting in the medical record. Orders: Orders MR knee LT wo con Today M25.562 - Pain in left knee XR knee LT 3V Today M25.562 - Pain in left knee Coding Level of Care Code New Pt Level 2 (25318) Diagnoses Left knee pain M25.562
== END 2023-06-09 13:15 | disposition home or self-care (01) ==
PROVIDERS: PCP Internal Medicine; Visit Provider Orthopaedic Surgery
DX: M25.562 Pain in left knee (principal)
CPT/HCPCS: 99202

== ENCOUNTER 2023-06-18 18:42 | Outpatient (REF) | payer MEDICARE, SELFPAY ==
--- NOTE | ~2023-06-18 | MR_ITS ---
EXAMINATION: MR KNEE WITHOUT CONTRAST, LEFT CLINICAL INFORMATION: Medial left knee pain. Hamstring injury 2 years ago. COMPARISON: Left knee radiographs dated 06/09/2023. TECHNIQUE: MRI of the knee without contrast was performed using routine sequences on a high-field scanner. FINDINGS: MENISCI: Medial Meniscus: Complete radial tear of the posterior root measuring up to 0.6 cm in ML dimension. Degenerative intrasubstance signal throughout the posterior horn and meniscal body with nondisplaced oblique inner margin tearing. Medial extrusion of the meniscal body. Lateral Meniscus: Nondisplaced oblique inner margin tear of the meniscal body. LIGAMENTS: Cruciate: Thickening and increased T2 signal of the anterior cruciate ligament with mild degenerative cystic change in the tibial spine. No acute ligament tear. Intact posterior cruciate ligament. Collateral: Intact EXTENSOR MECHANISM: Superior patellar enthesophytes. Intact quadriceps and patellar tendons. Normal patellofemoral alignment. ARTICULAR CARTILAGE/BONE: Patellofemoral Compartment: Superior patellar median ridge articular cartilage fissuring with mild chondral cystic change. Inferior central trochlea articular cartilage signal heterogeneity. Tiny marginal osteophytes. Medial Compartment: Diffuse articular cartilage signal heterogeneity and surface irregularity with posterior non-weightbearing near full-thickness loss. Small marginal osteophytes. Lateral Compartment: Articular cartilage signal heterogeneity and surface irregularity with tiny marginal osteophytes. JOINT FLUID AND BURSAE: Small joint effusion. MR/MR knee LT wo con IMPRESSION: 1. Oblique radial tear of the medial meniscus posterior root measuring 0.6 cm in ML dimension. Degenerative intrasubstance signal throughout the posterior horn and meniscal body with oblique inner margin tearing. Medial extrusion of the meniscal body. 2. Nondisplaced oblique inner margin tear of the lateral meniscal body. 3. Probable chronic sprain/partial tear of the anterior cruciate ligament. No evidence of acute ligament injury. 4. Mild tricompartmental osteoarthritis. Small joint effusion.
== END 2023-06-18 18:43 | disposition home or self-care (01) ==
LOC: HO.MRI 18:42
PROVIDERS: PCP Internal Medicine; Visit Provider Orthopaedic Surgery
DX: M25.562 Pain in left knee (principal)
CPT/HCPCS: 73721

== ENCOUNTER 2023-06-29 10:33 | Outpatient (AMB) | payer MEDICARE, SELFPAY ==
[2023-06-29 10:34] VITALS: BMI 24.4
--- NOTE | 2023-06-29 10:34 | A.OFFVIS_ITS ---
Vital Signs 06/29/23 10:34 Height 5 ft 3 in Weight 138 lb BMI 24.4 Intake Visit Reasons: OV-MRI Knee LT- Review Intake Note: Olga is a 72 year old female who presents with complaints of intermittent pain in her left knee. The patient states that several years ago she had similar pain in her right knee. She did not have a cortisone injection given into her right knee. She states that her right knee pain improved on its own. She describes her left knee pain as sharp in nature. She would like to hold off on left knee surgery if possible. The patient has difficulty walking for exercise because of her pain. She would like to get back to walking if possible. Allergies amoxicillin [AMOXICILLIN] Allergy (Unknown, Verified 06/29/23 10:44) HIVES Medication List - Last Reconciled 06/29/23 by Mateo Esquivel MD acyclovir 5% (Zovirax) 1 appl topical 6XD PRN 7 days ezetimibe 10 mg PO DAILY metoprolol succinate ER 50 mg PO DAILY metoprolol tartrate 1 tab PO BID PRN multivitamin 1 tab PO DAILY rosuvastatin 20 mg PO DAILY 30 days valacyclovir (Valtrex) 500 mg PO BID PRN 3 days PFSH Medical History Abnormal Pap smear of cervix Elevated cholesterol CAD (coronary artery disease) Dysphagia COVID-19 virus infection WPW (Zrhlp-Eptnwlrzg-Ocsvt syndrome) Elevated coronary artery calcium score SVT (supraventricular tachycardia) Hyperlipidemia Surgical History History of surgery on wrist History of surgical removal of ganglion cyst Hx of foot surgery History of esophagogastroduodenoscopy (EGD) H/O colonoscopy History of cardiac radiofrequency ablation Family History Father Gastric cancer Mother CVD (cardiovascular disease) Social History Alcohol intake: current Alcohol intake frequency: 0-2 drinks per day Patient Tobacco Use Status: Former Tobacco user Quit Date: 40 years ago Tobacco use type: Cigarette Years Smoked: 10 Current occupational status: retired Current occupation: right handed Sexual orientation: Straight/Heterosexual Gender identity: Female Physical Exam Vital Signs: BMI result Body Mass Index 24.4 Const Other: Well-nourished well-developed very friendly female awake alert and oriented x3 in no acute distress Extrem Other: Bilateral lower extremity examination shows good capillary refill, no skin lesions noted, normal sensation light touch Left knee examination shows a minimal effusion, minimal crepitus with range of motion, tenderness along her medial joint line, positive Teresita's test, no instability Office Procedures Joint Injection/Drain Joint Injection/Drain Primary Site: left knee Prep: site was prepped using aseptic technique Injected: 40 mg of, DepoMedrol and 1% plain lidocaine Procedure: The patient tolerated the procedure well Coding 20778 - Large joint Procedure code (CPT) selection complete Results Reviewed Results Reviewed: MRI of the patient's left knee shows mild degenerative changes as well as a tear of the medial meniscus Assessment & Plan Assessment & Plan (1) Left knee pain: Code(s): M25.562 - Pain in left knee Category: Medical Plan Ms. Galvez presents with intermittent left knee pain due to early degenerative joint disease as well as a tear of her medial meniscus. I had a lengthy disc ussion with the patient regarding the treatment options. The risks and benefits of a left knee cortisone injection were discussed at length with the patient. The patient wished to proceed with the injection. She tolerated the injection well. She will gradually progress to activities as tolerated. If she fails continued non operative treatments we will further discuss the risks and benefits of left knee arthroscopic surgery. The patient will contact me prior to her follow-up appointment in 3 months should any questions or concerns arise. Feel free to call me at any time should questions regarding her orthopedic management arise. I spent 21 minutes in reviewing the patient's records and imaging studies, seeing the patient and documenting in the medical record. Orders: Orders AMB Joint Injection/Aspiration Today M25.562 - Pain in left knee Coding Level of Care Code Est Pt Level 3 (40126) Diagnoses Left knee pain M25.562 CPT Codes Coding - 21744 Large joint: 85952 - Large joint ([id number])
== END 2023-06-29 11:17 | disposition home or self-care (01) ==
LOC: HO.HOS 10:33
PROVIDERS: PCP Internal Medicine; Visit Provider Orthopaedic Surgery
DX: M25.562 Pain in left knee (principal)
CPT/HCPCS: 20610; 99213

== ENCOUNTER → 2023-06-29 10:33 | Outpatient (BNVA) | payer MEDICARE, SELFPAY | PROVIDERS: PCP Internal Medicine; Visit Provider Orthopaedic Surgery | DX: M25.562 Pain in left knee (principal) | CPT/HCPCS: 20610; 99212; J1010 ==

== ENCOUNTER → 2023-07-22 12:50 | Outpatient (REF) | payer MEDICARE, SELFPAY ==
--- NOTE | 2023-07-22 12:53 | HM_ITS ---
* Total monitoring time 3 days. * Underlying rhythm is sinus with an average rate of 74/Min. * Frequent ventricular ectopy with a burden of 4.2%. Rare couplets. Evidence of bigeminy and trigeminy. * Supraventricular ectopy noted with a burden of 1.7%. Multiple short runs noted. Longest about 9 minutes. Maximum heart rate about 206/min. Suggestive of SVT. * No significant pauses or high-grade heart blocks. * Patient markers used in association with sinus rhythm, SVT, PVC. * 'SVT' in patient diary correlates with narrow complex tachycardia as above. MTDD
== END ==
LOC: HO.CARD 12:50
PROVIDERS: PCP Internal Medicine; Visit Provider Internal Medicine Cardiovascular Disease
DX: R00.2 Palpitations (principal); I47.10 Supraventricular tachycardia, unspecified
CPT/HCPCS: 93242

== ENCOUNTER → 2023-07-22 12:53 | Outpatient (BNV) | payer MEDICARE, SELFPAY | PROVIDERS: PCP Internal Medicine; Visit Provider Internal Medicine | DX: I49.3 Ventricular premature depolarization (principal) | CPT/HCPCS: 93244 ==

== ENCOUNTER 2023-08-10 15:16 | Outpatient (AMB) | payer MEDICARE, SELFPAY ==
[2023-08-10 15:43] VITALS: BP 120/80; PULSE 73; BMI 24.8
--- NOTE | 2023-08-10 15:43 | A.OFFVIS_ITS ---
Vital Signs 08/10/23 15:43 Height 5 ft 3 in Weight 140 lb BMI 24.8 BP 120/80 Blood Pressure Location Lt brachial Position Sitting Pulse 73 Intake Visit Reasons: follow-up after holter before stress Intake Note: Follow-up after holter want to see you before having stress test with ekg Public Health Training Assistant Required: No Allergies amoxicillin [AMOXICILLIN] Allergy (Unknown, Verified 06/29/23 10:44) HIVES Medication List - Last Reconciled 08/10/23 by Torsten Arora MD acyclovir 5% (Zovirax) 1 appl topical 6XD PRN 7 days ezetimibe 10 mg PO DAILY metoprolol succinate ER 50 mg PO DAILY multivitamin 1 tab PO DAILY rosuvastatin 20 mg PO DAILY 30 days valacyclovir (Valtrex) 500 mg PO BID PRN 3 days HPI Comments Details: Olga comes for follow-up. She had a recent significant episodes of SVT. She had another episode which was more symptomatic and associated lightheadedness she ended up going to the emergency room. This was done at [facility]. There she was diagnose with possible atrial flutter. She was treated and converted to sinus rhythm. Since then she has had some episodes of SVT. She comes for follow-up. She would elevated troponins at that time which were flat. She denies any chest pain since then. She had a Holter monitor post presentation shows 2 episodes of prolonged SVT lasting up to a minute at 100 90 beats per minute. Her metoprolol was increased. Her since then she feels very tired and fatigued and wants to re-evaluate therapy at this point time. She has had an attempted ablation in the past. She denies any syncopal episodes. Denies any heart failure symptoms. [facility] Medical History Abnormal Pap smear of cervix Elevated cholesterol CAD (coronary artery disease) Dysphagia COVID-19 virus infection WPW (Oatus-Wxieyhvkc-Nbnzn syndrome) Elevated coronary artery calcium score SVT (supraventricular tachycardia) Hyperlipidemia Surgical History History of surgery on wrist History of surgical removal of ganglion cyst Hx of foot surgery History of esophagogastroduodenoscopy (EGD) H/O colonoscopy History of cardiac radiofrequency ablation Family History Father Gastric cancer Mother CVD (cardiovascular disease) Social History Alcohol intake: current Alcohol intake frequency: 0-2 drinks per day Patient Tobacco Use Status: Former Tobacco user Tobacco use type: Cigarette Years Smoked: 10 Current occupational status: retired Current occupation: right handed Sexual orientation: Straight/Heterosexual Gender identity: Female Review of Systems Const Denies chills, Denies fatigue, Denies fever(s), Denies frequent falls, Denies weakness, Denies weight gain and Denies weight loss ENT Denies dizziness Card Denies chest pain, Denies leg edema, Denies lightheadedness, Denies palpitations, Denies dyspnea, Denies dyspnea on exertion, Denies orthopnea and Denies other (loss of consciousness) Resp Denies cough, Denies dyspnea and Denies dyspnea on exertion GI Denies hematochezia and Denies change in stool character Musc Denies abnormal gait, Denies muscle weakness, Denies numbness, Denies radiating pain into limb and Denies tingling Neuro Denies abnormal gait, Denies dizziness, Denies frequent falls, Denies numbness, Denies tingling and Denies weakness Endo Denies fatigue and Denies palpitations Physical Exam Vital Signs: Last Vital Signs Pulse 73 08/10/23 15:43 BP 120/80 08/10/23 15:43 BMI result Body Mass Index 24.8 Const General: cooperative, comfortable, no acute distress, alert, awake, Physically active and well groomed Nutritional Appearance: thin Orientation/consciousness: patient oriented x3 Limitations: no limitations HEENT Head: Yes normocephalic and Yes atraumatic Neck Neck: Yes trachea midline, Yes supple and Yes no JVD Resp Effort & Inspection: normal respiratory effort Auscultation: clear to auscultation bilaterally Cardio Jugular venous distension: no JVD Palpation: normal PMI Rate: regular rate Rhythm: regular rhythm Heart sounds: S1 normal heart sound present and S2 normal heart sound present Bruits: no carotid bruits Peripheral pulses: Peripheral pulses 2+ throughout GI Auscultation: normal bowel sounds Skin General skin exam: no rashes or lesions noted Neuro General: patient oriented x3 and no focal motor deficits Extrem General: Yes no clubbing, cyanosis or edema Psych Appearance: grossly normal Office Procedures EKG Details: EKG shows normal sinus rhythm with PACs with nonspecific ST changes 44880-[id number], Complete Assessment & Plan Assessment & Plan (1) SVT (supraventricular tachycardia): Code(s): I47.1 - Supraventricular tachycardia Category: Medical Plan: Highly symptomatic episodes of SVT with recent Holter monitor showing episodes of SVT but lasting about a minute. She was not significantly symptomatic at that point time. She has not tolerating high dose of metoprolol with significant symptoms of chronotropic competence. At this point time will suggest her to switch to Cardizem therapy as an alternative to metoprolol therapy. Will refer to EPS for possible consideration of ablation again. Advised her to pursue vagal maneuvers and also use metoprolol p.r.n. if her symptoms last for greater than 30 seconds. She is agreeable to this management plan. (2) Elevated coronary artery calcium score: Comment: sees Code(s): R93.1 - Abnormal findings on diagnostic imaging of heart and coronary circulation Category: Medical Plan: Recent episode which is prolonged and leading to highly symptomatic episode and troponin release. Will suggest a myocardial perfusion imaging to rule out any progressive CAD at this point time. Advised follow-up if this is significantly abnormal. Will follow with you. Thank you for allowing me to partake in her care. Medications: New diltiazem HCl CD (Cardizem CD) 120 mg PO DAILY 30 caps 5RF Changed From metoprolol succinate ER 50 mg PO DAILY To metoprolol succinate ER 25 mg PO DAILY PRN tachycardia Coding Level of Care Code Est Pt Level 4 (09417) Diagnoses SVT (supraventricular tachycardia) I47.1 Elevated coronary artery calcium score R93.1 CPT Codes EKG - CPT: 80942-[id number], Complete ([id number])
== END 2023-08-10 16:31 | disposition home or self-care (01) ==
PROVIDERS: PCP Internal Medicine; Visit Provider Internal Medicine Cardiovascular Disease
DX: I47.10 Supraventricular tachycardia, unspecified (principal); R93.1 Abnormal findings on diagnostic imaging of heart and coronary circulation
CPT/HCPCS: 93010; 99214

== ENCOUNTER → 2023-08-10 15:16 | Outpatient (BNVA) | payer MEDICARE, SELFPAY | PROVIDERS: PCP Internal Medicine; Visit Provider Internal Medicine Cardiovascular Disease | DX: I47.10 Supraventricular tachycardia, unspecified (principal); R93.1 Abnormal findings on diagnostic imaging of heart and coronary circulation; Z79.899 Other long term (current) drug therapy | CPT/HCPCS: 93005; 99212 ==

== ENCOUNTER → 2023-08-18 08:20 | Outpatient (REF) | payer MEDICARE, SELFPAY ==
--- NOTE | ~2023-08-18 | NM_ITS ---
Myocardial perfusion study Indication: Troponin elevation with SVT to evaluate for myocardial ischemia Technique: The patient was brought in for a Lexiscan perfusion study on 08/18/2023. Patient performed low-level exercise and was injected 0.4 mg of Lexiscan intravenously. Within a minute of injection, 25 mCi of sestamibi was given intravenously. Images were obtained using the SPECT gamma camera interlaced with the gating device. Images were obtained in supine position. Resting perfusion study was performed on 08/25/2023. Patient was administered 25 mCi of sestamibi intravenously at rest. Images were then obtained in supine position. Images obtained with and without CT attenuation. Total DLP 175 mGy-cm. Images were processed with the software and compared side to side in short axis, horizontal long axis and vertical long axis views. Findings: The stress perfusion study showed non attenuated images show some thinning of the basal inferior wall of the LV myocardium otherwise overall normal uptake of radiotracer in all segments of LV myocardium. Attenuation corrected images show normal uptake of radiotracer in all segments of LV myocardium.. The gated study shows normal LV systolic function with calculated LVEF of 73%. LV cavity is normal in size. The gated study shows normal systolic wall thickening and contraction of segments. Resting study shows no significant change in perfusion pattern compared to stress study. Gating at rest reveals systolic wall motion with ejection fraction at 73%. The findings are consistent with no clear reversible defect suggestive of ischemia. Likely normal myocardial perfusion. NM/NM cardiolite stress test Impression: 1. Myocardial perfusion imaging study shows normal myocardial perfusion 2. Gated LVEF is 73% 3. Transient ischemic dilatation not present EKG is nondiagnostic for ischemia
--- NOTE | 2023-08-18 08:26 | CA_ITS ---
Acquisition Time: 2023-08-18 08:36:10 Total Exercise Time: 00:05:59 Test Indications: WPW, SVT Medications: SEE H Protocol: SHERIN Max HR: 129 BPM 87% of Pred: 148 BPM Max BP: 132/074 mmHG Max Work Load: 7.0 METS Exercise stress test exercise 5 min 59 sec of Sherin protocol achieivng 85-87% MPHR, without anginal symptoms, isdolated PVCs, ventricular bigeminy, ventricular cuplets, with normotensive response to exercise, without EKG changes. Nuclear images pending. Test reviewed with Dr. Edwards. Referred By: Torsten Arora Overread By: Ava Mcnamara
== END ==
LOC: HO.CARD 08:20
PROVIDERS: PCP Internal Medicine; Visit Provider Internal Medicine Cardiovascular Disease
DX: R00.2 Palpitations (principal); I47.10 Supraventricular tachycardia, unspecified
CPT/HCPCS: 78452; 93017; A9500; J0280; J2785

== ENCOUNTER → 2023-08-18 08:26 | Outpatient (BNV) | payer MEDICARE, SELFPAY | PROVIDERS: PCP Internal Medicine; Visit Provider Nurse Practitioner | DX: I47.10 Supraventricular tachycardia, unspecified (principal) | CPT/HCPCS: 78452; 93016; 93018 ==

== ENCOUNTER 2024-01-06 08:18 | Outpatient (REF) | payer MEDICARE, SELFPAY ==
--- NOTE | ~2024-01-06 | MM_ITS ---
EXAMINATION: MM SCREENING DIGITAL BREAST TOMOSYNTHESIS, BILATERAL CLINICAL INFORMATION: Screening. Asymptomatic. COMPARISON: Mammography: Comparison is made with available priors TECHNIQUE: Digital breast mammography with tomosynthesis is performed in both the craniocaudal and mediolateral oblique views along with computer-aided detection (CAD). FINDINGS: There are scattered areas of fibroglandular density (ACR BI-RADS breast composition Category b). Left: There are no significant masses, abnormal calcifications, or other abnormalities. Right: Asymmetry lateral breast middle depth on CC view. No suspicious calcifications or other abnormal findings. MM/MM tomosynthesis screening BI IMPRESSION: Additional imaging is recommended ASSESSMENT: BI-RADS BI-RADS 0 - Incomplete: Needs additional Imaging. RECOMMENDATION: 1. Additional views of the right breast 2. Targeted ultrasound if warranted after review of the additional views. 3. Radiology department staff will contact the patient for additional imaging. Additional Imaging required This examination should not preclude the clinical evaluation of a suspicious palpable abnormality. This patient's information was entered into a reminder system with a target due date for their next mammogram. Electronically signed by: Ayaka Thompson DO 01/13/2024 11:46 AM [facility]
== END 2024-01-06 08:19 | disposition home or self-care (01) ==
LOC: HO.MAMMO 08:18
PROVIDERS: PCP Internal Medicine; Visit Provider Internal Medicine
DX: Z12.31 Encounter for screening mammogram for malignant neoplasm of breast (principal)
CPT/HCPCS: 77063; 77067

== ENCOUNTER → 2024-01-06 08:30 | Outpatient (BNV) | payer MEDICARE, SELFPAY | PROVIDERS: PCP Internal Medicine; Visit Provider Internal Medicine | DX: Z12.31 Encounter for screening mammogram for malignant neoplasm of breast (principal) | CPT/HCPCS: 77063; 77067 ==

== ENCOUNTER 2024-01-29 12:09 | Outpatient (REF) | payer MEDICARE, SELFPAY ==
--- NOTE | ~2024-01-29 | US_ITS ---
EXAMINATION: MM DIAGNOSTIC DIGITAL BREAST TOMOSYNTHESIS, RIGHT Limited right breast ultrasound. CLINICAL INFORMATION: Call back from screening for asymmetry in the lateral right breast on CC view. COMPARISON: Mammography: Comparison is made with available prior examinations. TECHNIQUE: Digital breast tomosynthesis is performed in both the craniocaudal and mediolateral oblique views along with computer-aided detection (CAD). Synthesized 2D images are generated from the tomosynthesis. Limited right breast ultrasound. FINDINGS: The breasts are heterogeneously dense, which may obscure small masses (ACR BI-RADS breast composition Category c). Right: Asymmetry in the lateral right breast middle depth on CC view persist on additional imaging projections and partially effaces. No suspicious calcifications or other abnormal findings. Targeted color Doppler ultrasound in the right breast scanning in the lateral breast from 7-11 o'clock demonstrates normal fibronodular breast tissue. There is no sonographic abnormality. US/US breast RT limited mamm only IMPRESSION: Asymmetry in the lateral right breast on CC view which partially effaces and without sonographic correlate. Recommend 6 month follow-up for further evaluation of stability. ASSESSMENT: BI-RADS BI-RADS 3 - Probably benign finding(s) - 6 month follow-up suggested RECOMMENDATION: 6 Month F/U Results were provided to the patient at time of visit by the technologist. This patient's information was entered into a reminder system with a target due date for their next mammogram. Electronically signed by: Ayaka Thompson DO 01/29/2024 01:06 PM [facility]
== END 2024-01-29 12:10 | disposition home or self-care (01) ==
LOC: HO.MAMMO 12:09
PROVIDERS: PCP Internal Medicine; Visit Provider Internal Medicine
DX: N64.89 Other specified disorders of breast (principal)
CPT/HCPCS: 76642; 77061; 77065

== ENCOUNTER → 2024-01-29 12:15 | Outpatient (BNV) | payer MEDICARE, SELFPAY | PROVIDERS: PCP Internal Medicine; Visit Provider Internal Medicine | DX: N60.21 Fibroadenosis of right breast (principal); R92.333 Mammographic heterogeneous density, bilateral breasts | CPT/HCPCS: 76642; 77065; G0279 ==

== ENCOUNTER 2024-04-05 10:48 | Outpatient (AMB) | payer MEDICARE, SELFPAY ==
--- NOTE | 2024-04-05 10:52 | A.OFFVIS_ITS ---
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 Overall she has been doing well. She has been exercise regularly and walking on a treadmill in the gym due to winter months. She has no symptoms of any exertional chest pain shortness of breath. She has not had any increase SVT episodes despite increased personal stress in her life. She denies any heart failure symptoms. Takes all her medications. No side effects to metoprolol therapy. Her last LDL was well optimized. [facility] Medical History Abnormal Pap smear of cervix Elevated cholesterol CAD (coronary artery disease) Dysphagia COVID-19 virus infection WPW (Uwijj-Cpjzacwxj-Cejag syndrome) Elevated coronary artery calcium score SVT (supraventricular tachycardia) Hyperlipidemia Surgical History History of surgery on wrist History of surgical removal of ganglion cyst Hx of foot surgery History of esophagogastroduodenoscopy (EGD) H/O colonoscopy History of cardiac radiofrequency ablation Family History Father Gastric cancer Mother CVD (cardiovascular disease) Social History Alcohol intake: current Alcohol intake frequency: 0-2 drinks per day Patient Tobacco Use Status: Former Tobacco user Tobacco use type: Cigarette Years Smoked: 10 Current occupational status: retired Current occupation: right handed Sexual orientation: Straight/Heterosexual Gender identity: Female Review of Systems Const Denies chills, Denies fatigue, Denies fever(s), Denies frequent falls, Denies weakness, Denies weight gain and Denies weight loss ENT Denies dizziness Card Denies chest pain, Denies leg edema, Denies lightheadedness, Denies palpitations, Denies dyspnea, Denies dyspnea on exertion, Denies orthopnea and Denies other (loss of consciousness) Resp Denies cough, Denies dyspnea and Denies dyspnea on exertion GI Denies hematochezia and Denies change in stool character Musc Denies abnormal gait, Denies muscle weakness, Denies numbness, Denies radiating pain into limb and Denies tingling Neuro Denies abnormal gait, Denies dizziness, Denies frequent falls, Denies numbness, Denies tingling and Denies weakness Endo Denies fatigue and Denies palpitations Physical Exam Vital Signs: Last Vital Signs Pulse 70 04/05/24 10:53 BP 120/70 04/05/24 10:53 BMI result Body Mass Index 24.8 Const General: cooperative, comfortable, no acute distress, alert, awake, Physically active and well groomed Nutritional Appearance: thin Orientation/consciousness: patient oriented x3 Limitations: no limitations HEENT Head: Yes normocephalic and Yes atraumatic Neck Neck: Yes trachea midline, Yes supple and Yes no JVD Resp Effort & Inspection: normal respiratory effort Auscultation: clear to auscultation bilaterally Cardio Jugular venous distension: no JVD Palpation: normal PMI Rate: regular rate Rhythm: regular rhythm Heart sounds: S1 normal heart sound present and S2 normal heart sound present Bruits: no carotid bruits Peripheral pulses: Peripheral pulses 2+ throughout GI Auscultation: normal bowel sounds Skin General skin exam: no rashes or lesions noted Neuro General: patient oriented x3 and no focal motor deficits Extrem General: Yes no clubbing, cyanosis or edema Psych Appearance: grossly normal Assessment & Plan Assessment & Plan (1) SVT (supraventricular tachycardia): Code(s): I47.1 - Supraventricular tachycardia Category: Medical Plan: Highly symptomatic SVT without any obvious recurrent episodes on low-dose metoprolol therapy. Continue the same. Vagal maneuvers were discussed. Avoidance of stimulants was discussed. Stress mitigation strategies were discussed. She was not having no side effects on metoprolol therapy and advised to continue the same. She feels can pursue ablation. (2) Elevated coronary artery calcium score: Comment: sees Code(s): R93.1 - Abnormal findings on diagnostic imaging of heart and coronary circulation Category: Medical Plan: CAD with elevated calcium score suggestive of coronary atherosclerosis normal myocardial perfusion imaging suggestive of nonobstructive CAD. Continue aggressive medical therapy. Continue high-intensity statin therapy as well as ezetimibe therapy. LDL is well optimized at this point time. Monitor lipids on annual basis. Encouraged to maintain activity level as tolerated. Advised to call me with any new symptoms. Will follow up in the clinic in 1 year's time, sooner p.r.n.. Thank you for allowing me to partake in his care Coding Level of Care Code Est Pt Level 4 (22700) Complex EM visit Add On G2211 Diagnoses SVT (supraventricular tachycardia) I47.1 Elevated coronary artery calcium score R93.1
[2024-04-05 10:53] VITALS: BP 120/70; PULSE 70; BMI 24.8
== END 2024-04-05 11:12 | disposition home or self-care (01) ==
PROVIDERS: PCP Internal Medicine; Visit Provider Internal Medicine Cardiovascular Disease
DX: I47.10 Supraventricular tachycardia, unspecified (principal); R93.1 Abnormal findings on diagnostic imaging of heart and coronary circulation
CPT/HCPCS: 99214; G2211

== ENCOUNTER → 2024-04-05 10:48 | Outpatient (BNVA) | payer MEDICARE, SELFPAY | PROVIDERS: PCP Internal Medicine; Visit Provider Internal Medicine Cardiovascular Disease | DX: I47.10 Supraventricular tachycardia, unspecified (principal); R93.1 Abnormal findings on diagnostic imaging of heart and coronary circulation | CPT/HCPCS: 99212 ==

== ENCOUNTER 2024-06-29 15:16 | Emergency (ER) | payer MEDICARE, SELFPAY ==
[2024-06-29] VITALS (9 sets, daily range): BP systolic 108–145; BP diastolic 66–97; PULSE 64–144; RESP 17–25; TEMP 36.6–37.2; O2SAT 95–99; BMI 25.7
--- NOTE | ~2024-06-29 | XR_ITS ---
EXAMINATION: XR CHEST CLINICAL INFORMATION: dyspnea on exertion COMPARISON: None available. TECHNIQUE: Frontal view of the chest was obtained. FINDINGS: No significant abnormality is noted involving the heart, lungs, mediastinum, bony thorax or soft tissues. XR/XR chest 1V IMPRESSION: Unremarkable chest examination. Electronically signed by: Lenin Palmer MD 06/29/2024 04:19 PM EDT RP
--- NOTE | 2024-06-29 15:18 | ECG_ITS ---
Test Reason : ?A-FLUTTER Blood Pressure : */* mmHG Vent. Rate : 151 BPM Atrial Rate : 288 BPM P-R Int : * ms QRS Dur : 80 ms QT Int : 328 ms P-R-T Axes : * -26 -85 degrees QTcB Int : 519 ms Rhythm shows atrial flutter with variable block Marked ST abnormality, possible inferior subendocardial injury Abnormal ECG When compared with ECG of 04-Aug-2007 15:19, Rhythm shows atrial flutter with variable block has replaced Normal sinus rhythm Referred By: Celi Collado Electronically Signed By: INGRID ROCHA MD
--- NOTE | 2024-06-29 15:28 | ED_ITS ---
HPI - Chest Pain General Chief Complaint: Arrhythmia/Palpitations Stated Complaint: Aflutter, weakness Time Seen by Provider: 06/29/24 15:36 History of Present Illness ED Provider: Kalyah YANG narrative: The patient is a 73-year-old female who reports a rather complex history related to cardiac dysrhythmias. She says that when she was young she had episodes of significant tachycardia that were attributed to Govnt-Etbmdujaw-Eslwu syndrome. 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 This was done approximately 30 years ago. However after her WPW was addressed with an ablation procedure she started to have episodes of SVT. She says that at 1st these episodes of SVT were largely exertional but they have become much more paroxysmal and more frequent recently. She also says that approximately 1 year ago she was seen at the emergency room at [facility] for an episode of tachycardia that felt different from her SVT. That was apparently felt to be an episode of atrial fibrillation or flutter. She says that at the time that she was treated in the emergency room for that episode she required 15 mg of metoprolol. She says that she was discharged from the emergency room and not hospitalized. She says that this morning she experienced significant symptoms of her heart racing and that this was associated with a sense of near-syncope and exertional dyspnea. She says that this episode felt very much like the episode that brought her to [facility] a year ago. She says this does not feel like her typical SVT, which she is very familiar with. The patient had her drive her to the hospital today and they went to the cardiology office where an EKG was done that showed atrial flutter at a rate of about 150. She was referred to the emergency room. Related Data Home Medications ?Medication ?Instructions ?Recorded ?Confirmed multivitamin 1 tab PO DAILY 08/27/20 04/05/24 Previous Rx's ?Medication ?Instructions ?Recorded acyclovir 5 % topical ointment 1 appl topical 6XD PRN prn 7 days 02/11/22 (Zovirax) #30 grams valacyclovir 500 mg tablet 500 mg PO BID PRN antiviral 3 days 02/11/22 (Valtrex) #30 tabs rosuvastatin 20 mg tablet 20 mg PO DAILY 30 days #30 tabs 08/19/23 metoprolol succinate 50 mg 25 mg (1/2 x 50 mg) PO DAILY 09/25/23 tablet,extended release 24 hr tachycardia #30 tabs ezetimibe 10 mg tablet 10 mg PO DAILY #90 tabs 03/30/24 diltiazem HCl 120 mg capsule,24 120 mg PO DAILY #30 caps 06/29/24 hr,extended release rivaroxaban 20 mg tablet 20 mg PO DAILY #30 tabs 06/29/24 Allergies Allergy/AdvReac Type Severity Reaction Status Date / Time amoxicillin [AMOXICILLIN] Allergy Unknown HIVES Verified 06/29/24 15:30 [facility] Past Medical History Medical History Abnormal Pap smear of cervix Elevated cholesterol CAD (coronary artery disease) Dysphagia COVID-19 virus infection WPW (Iobnm-Qcuawduuu-Lcgxe syndrome) Elevated coronary artery calcium score SVT (supraventricular tachycardia) Hyperlipidemia Surgical History History of surgery on wrist History of surgical removal of ganglion cyst Hx of foot surgery History of esophagogastroduodenoscopy (EGD) H/O colonoscopy History of cardiac radiofrequency ablation Family History Family History Father Gastric cancer Mother CVD (cardiovascular disease) Social History Social History Alcohol intake: never Patient Tobacco Use Status: Former Tobacco user Tobacco use type: Cigarette Years Smoked: 10 Smoked in Last 30 Days: No Use of substances other than those prescribed or required for medical reasons: No Advance Directives: No Advance Directives Information Provided: No Do you have a plan to hurt others: No Plan Current occupational status: retired Current occupation: right handed Sexual orientation: Straight/Heterosexual Gender identity: Female Physical Exam 2 Vital Signs: Vital Signs: Last Vital Signs Temp 98.9 F 06/29/24 21:42 Pulse 65 06/29/24 21:42 Resp 25 H 06/29/24 21:42 BP 126/68 06/29/24 21:42 Pulse Ox 97 06/29/24 21:42 O2 Del Method Room Air 06/29/24 21:42 BMI result Body Mass Index 25.7 Const: Other: The patient is awake, alert, pleasant, cooperative. She does not appear in acute distress. HEENT: Other: Face is symmetrical, mucous membranes moist Eyes: General: appearance normal, both eyes and all related structures Neck: Neck: Yes normal visual inspection, Yes full ROM and Yes no JVD Resp: Effort & Inspection: normal respiratory effort Auscultation: clear to auscultation bilaterally Cardio: Other: The patient was very tachycardic with a fairly regular rhythm. No definite murmur heard. GI: Other: Abdomen is soft and nontender Skin: Other: skin is dry and unremarkable Neuro: Other: the patient is awake and alert with a normal mental status. Cranial nerves 2- 12 are grossly intact. She moves her extremities normally and appropriately. Extrem: Other: No peripheral edema. No calf swelling or tenderness. Course Course Course Narrative: This is a rapid medical exam performed by Lalitha Collado NP: Additional HPI, ROS, PE not included below will be deferred to primary provider. 73 yo female with PMHx of CAD, HLD, SVT, WPW, presents to the ED due to SOB, and near syncope. Patient states she felt SOB and felt as if she was about to pass out this morning. She states she went to [facility] cardiology today and they brought her down due to being in Aflutter. Plan: Labs, CXR, Medications Administered Discontinued Medications Generic Name Dose Route Start Last Admin Trade Name Daylin PRN Reason Stop Dose Admin Adenosine 6 mg 06/29/24 17:28 06/29/24 17:53 Adenosine 6 Mg/2 Ml Vial IVPUSH 06/29/24 17:29 6 mg ONCE ONE Administration Adenosine 12 mg 06/29/24 17:29 06/29/24 18:18 Adenosine 6 Mg/2 Ml Vial IVPUSH 06/29/24 17:30 Not Given ONCE ONE Apixaban 5 mg 06/29/24 20:58 06/29/24 21:04 Apixaban 5 Mg Tablet PO 06/29/24 20:59 5 mg ONCE ONE Administration Diltiazem HCl 20 mg 06/29/24 18:07 06/29/24 18:17 Diltiazem Hcl 50 Mg/10 Ml Vial IVPUSH 06/29/24 18:08 20 mg STAT STA Administration Sodium Chloride 1,000 mls @ 999 mls/hr 06/29/24 16:15 06/29/24 17:00 Ns IV 06/29/24 17:15 Infused .Q1H1M LOS Infusion Metoprolol Tartrate 5 mg 06/29/24 15:36 06/29/24 15:44 Metoprolol Tartrate 5 Mg/5 Ml Vial IVPUSH 06/29/24 15:37 5 mg ONCE ONE Administration Protocol Metoprolol Tartrate 5 mg 06/29/24 15:49 06/29/24 15:53 Metoprolol Tartrate 5 Mg/5 Ml Vial IVPUSH 06/29/24 15:50 5 mg ONCE ONE Administration Protocol Metoprolol Tartrate 5 mg 06/29/24 16:52 06/29/24 16:59 Metoprolol Tartrate 5 Mg/5 Ml Vial IVPUSH 06/29/24 16:53 5 mg ONCE ONE Administration Protocol Medical Decision Making Medical Decision Making [facility] Narrative: The patient is a 73-year-old woman with a long and somewhat complicated history of tachy dysrhythmias. 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 She had an ablation procedure. She says she then developed fairly frequent episodes of SVT which were initially exertional but which have become more paroxysmal recently and more frequent. She also had an episode 1 year ago when she was treated at [facility]'s Emergency room at which she was told that the episode at that time was atrial flutter. She is not on anticoagulation medication. She presents today with acute palpitations and a sense of racing heart that started from when she woke up this morning. She has had similar but much less prolonged symptoms intermittently over the last few weeks, with a frequency of about once a week. Previous episodes of not lasted more than 20 minutes. The patient has EKG today showed a narrow complex tachycardia at 151 beats per minute. There was a vague suggestion of possible atrial flutter. The patient who was initially given IV metoprolol for rate control. However after 3 doses of 5 mg of IV metoprolol that was really very little change in her rate or her rhythm. At that point she was given 6 mg of IV adenosine to confirm a diagnosis of atrial flutter versus SVT. The adenosine succeeded in briefly slowing her ventricular rate, revealing underlying flutter waves. After a more definitive assessment that this is in fact atrial flutter the patient was given 20 mg of IV diltiazem. She had a robust response to the diltiazem. Her heart rate transiently went to the 30s and she converted to a normal sinus rhythm after receiving the diltiazem. She was observed for several hours. Her heart rate recovered to the 60s. She looked well. She would like to be discharged. The case was discussed with Dr. Arora of Cardiology. The patient will be discharged on rivaroxaban and diltiazem ER 120 mg once a day will be added to her regimen as well. She was ultimately discharged to follow up with Cardiology. Lab Data 06/29/24 15:41 06/29/24 15:41 Labs: Lab Results 06/29/24 Range/Units 15:41 WBC 7.2 (4.8-10.8) X10*3/uL RBC 4.61 (4.20-5.50) X10*6/uL Hgb 14.7 (12.0-16.0) g/dl Hct 42.4 (37.0-47.0) % MCV 92.0 (80.0-98.0) fL MCH 31.9 (27.0-33.0) pg MCHC 34.7 (31.0-35.0) g/dl RDW 13.4 (11.0-16.0) % Plt Count 205 D (160-400) X10*3/uL MPV 8.6 L (9.4-12.3) fL Immature Gran % (Auto) 0.4 (0.0-0.4) % Neut % (Auto) 70.5 (45-73) % Lymph % (Auto) 19.3 L (20-40) % Island % (Auto) 9.3 (2-11) % Eos % (Auto) 0.1 (0-4) % Baso % (Auto) 0.4 (0-2) % Lymph # (Auto) 1.4 (1.2-4.9) X10*3/uL Island # (Auto) 0.7 (0.1-1.2) X10*3/uL Eos # (Auto) 0.0 (0.0-0.4) X10*3/uL Baso # (Auto) 0.0 (0.0-0.2) X10*3/uL Abs Immat Gran (auto) 0.03 (0.00-0.03) X10*3/uL Absolute Neuts (auto) 5.1 (2.0-8.3) x10*3/uL Absolute Nucleated RBC 0.000 (0.0-0.012) X10*3/uL Nucleated RBC % (auto) 0.0 (0.0-0.2) /100WBC Hold Purple Top SEE NOTE Hold Blue Top SEE NOTE Sodium 136 (135-145) mmol/L Potassium 4.4 (3.3-5.1) mmol/L Chloride 100 (96-108) mmol/L Carbon Dioxide 25 (22-29) mmol/L Anion Gap 15 (12-20) BUN 16 (9-16) mg/dL Creatinine 0.78 (0.5-1.4) mg/dL Estim Creat Clear Calc 58.5 Estimated GFR > 60 Random Glucose 120 H (60-115) mg/dL Lactic Acid 1.7 (0.5-2.0) mmol/L Calcium 9.6 (8.4-10.2) mg/dL Magnesium 1.8 (1.6-2.6) mg/dL Total Bilirubin 0.5 (0.0-1.0) mg/dL AST 75 H (5-31) U/L ALT 64 H (0-31) U/L Alkaline Phosphatase 60 (39-117) U/L Troponin I High Sens 12.3 (<3.5-17.0) ng/L Total Protein 7.5 (6.5-8.0) g/dL Albumin 4.7 (3.5-5.0) g/dL Critical Care Time Critical Care Time Critical Care Time: Yes Total Critical Care Time: 35 Attestation: The patient was critically ill with a high probability of imminent or life- threatening deterioration. I spent greater than 30 minutes of discontinuous time evaluating the patient, delivering critical care at the bedside, discussing evaluating data with consultants. Critical care time does not include time spent performing separately billable procedures or teaching. Time spent performing critical care with 35 minutes. Discharge Plan Discharge Clinical Impression: Atrial flutter with rapid ventricular response Patient Disposition: Home, Self-Care Instructions: Atrial Flutter (ED), Blood Thinners (ED) Additional Instructions: today you had an episode of atrial flutter associated with a very rapid heart rate. You has a converted back to a normal sinus rhythm. Because atrial flutter, like atrial fibrillation, is associated with a risk of stroke the patient's are generally started on anticoagulant medications to reduce the risk of stroke from a blood clot. I have therefore sent a prescription for the medication rivaroxaban (also known as Xarelto ) to your pharmacy which you should take once a day as an anticoagulant medication. Additionally I have sent a medication called diltiazem to your pharmacy which you should take once a day as well. This medication helps keep your heart rate from going too fast. Please contact your cardiology office tomorrow morning for a prompt follow up appointment. Return to the emergency room if significantly worse. Prescriptions: New diltiazem HCl 120 mg capsule,extended release 24hr 120 mg PO DAILY Qty: 30 0RF rivaroxaban 20 mg tablet 20 mg PO DAILY Qty: 30 0RF Rx Instructions: must administer with evening meal No Action valacyclovir [Valtrex] 500 mg tablet 500 mg PO BID PRN (Reason: antiviral) 3 Days Qty: 30 2RF Rx Instructions: take with onset on of symptoms, take for three days, may repeat dosing per episode prn for genital lesions acyclovir [Zovirax] 5 % ointment 1 appl topical 6XD PRN (Reason: prn) 7 Days Qty: 30 2RF rosuvastatin 20 mg tablet 20 mg PO DAILY 30 Days Qty: 30 5RF metoprolol succinate 50 mg tablet extended release 24 hr 25 mg PO DAILY Qty: 30 5RF ezetimibe 10 mg tablet 10 mg PO DAILY Qty: 90 3RF multivitamin Tablet 1 tab PO DAILY Referrals: Torsten Arora MD [Physician] - ( Paroxysmal atrial flutter) Interventions: ED Discharge Assessment Last Done: 06/29/24 21:42 Discharge Date/Time: 06/29/24 21:43 Print Language: French
--- NOTE | 2024-06-29 15:37 | ECG_ITS ---
Test Reason : CHEST PAIN Blood Pressure : */* mmHG Vent. Rate : 138 BPM Atrial Rate : 276 BPM P-R Int : * ms QRS Dur : 78 ms QT Int : 356 ms P-R-T Axes : 231 -16 -40 degrees QTcB Int : 539 ms Atrial flutter with variable A-V block with premature ventricular or aberrantly conducted complexes Nonspecific ST and T wave abnormality Abnormal ECG When compared with ECG of 29-Jun-2024 15:20, No significant changes seen Referred By: Brannon Miller Electronically Signed By: INGRID ROCHA MD
[2024-06-29] MEDS: Metoprolol Tartrate 5 MG/5 ML VIAL IVPUSH ×3 (15:44→16:59)
[2024-06-29 15:47] LABS: MANUAL DIFF FLAG NO
[2024-06-29 15:51] LABS: Basophils Percent Auto 0.4 % (0-2); Eosinophils Percent Auto 0.1 % (0-4); Hematocrit 42.4 % (37.0-47.0); Hemoglobin 14.7 g/dl (12.0-16.0); Imm Gran Abs Auto 0.03 X10*3/uL (0.00-0.03); Imm Gran Pct Auto 0.4 % (0.0-0.4); Lymphocytes Absolute Auto 1.4 X10*3/uL (1.2-4.9); Lymphocytes Percent Auto 19.3 % (20-40); Mean Corpuscular HGB Conc 34.7 g/dl (31.0-35.0); Mean Corpuscular Hemoglobin 31.9 pg (27.0-33.0); Mean Platelet Volume 8.6 fL (9.4-12.3); Monocytes Absolute Auto 0.7 X10*3/uL (0.1-1.2); Monocytes Percent Auto 9.3 % (2-11); Neutrophils Absolute Auto 5.1 x10*3/uL (2.0-8.3); Neutrophils Percent Auto 70.5 % (45-73); Platelet Count 205 X10*3/uL (160-400); Red Blood Count 4.61 X10*6/uL (4.20-5.50); Red Cell Distribution Width 13.4 % (11.0-16.0); White Blood Count 7.2 X10*3/uL (4.8-10.8)
[2024-06-29 16:10] LABS: Alanine Aminotransferase 64 U/L (0-31); Albumin Level 4.7 g/dL (3.5-5.0); Anion Gap 15 (12-20); Aspartate Amino Transferase 75 U/L (5-31); Bilirubin Total 0.5 mg/dL (0.0-1.0); Blood Urea Nitrogen 16 mg/dL (9-16); Calcium 9.6 mg/dL (8.4-10.2); Carbon Dioxide 25 mmol/L (22-29); Chloride 100 mmol/L (96-108); Creatinine Clr Calc Pharmacy 58.5; Estimated Glomerular Filt Rate > 60; Glucose Random 120 mg/dL (60-115); Magnesium 1.8 mg/dL (1.6-2.6); Potassium 4.4 mmol/L (3.3-5.1); Sodium 136 mmol/L (135-145); Total Protein 7.5 g/dL (6.5-8.0); Troponin-I High Sensitivity 12.3 ng/L (<3.5-17.0)
[2024-06-29 16:13] LABS: Alkaline Phosphatase 60 U/L (39-117)
[2024-06-29 16:15] LABS: Lactic Acid 1.7 mmol/L (0.5-2.0)
[2024-06-29] MEDS: 0.9 % Sodium Chloride 1,000 ML 999 ML IV (16:21)
--- NOTE | 2024-06-29 17:52 | ECG_ITS ---
Test Reason : CP Blood Pressure : */* mmHG Vent. Rate : 132 BPM Atrial Rate : 264 BPM P-R Int : * ms QRS Dur : 76 ms QT Int : 308 ms P-R-T Axes : 236 -20 -53 degrees QTcB Int : 456 ms Atrial flutter with variable A-V block with premature ventricular or aberrantly conducted complexes ST depression, consider subendocardial injury Abnormal ECG When compared with ECG of 29-Jun-2024 15:58, Nonspecific T wave abnormality no longer evident in Lateral leads Referred By: Judah Adrian Electronically Signed By: INGRID ROCHA MD
[2024-06-29] MEDS: Adenosine 6 MG/2 ML VIAL IVPUSH (17:53)
--- NOTE | 2024-06-29 17:53 | PC.NURSE ---
Adenosine given by MD Judah LUKE and MARLY Madden charge present and assisted with given medication. Pt on pacer pads.
[2024-06-29] MEDS: dilTIAZem HCL 50 MG/10 ML VIAL 20 MG IVPUSH (18:17)
--- NOTE | 2024-06-29 18:29 | ECG_ITS ---
Test Reason : A FLUTTER Blood Pressure : */* mmHG Vent. Rate : 61 BPM Atrial Rate : * BPM P-R Int : * ms QRS Dur : 84 ms QT Int : 458 ms P-R-T Axes : * -4 10 degrees QTcB Int : 461 ms Normal sinus rhythm with Premature supraventricular complexes Abnormal ECG When compared with ECG of 29-Jun-2024 17:52, Normal sinus rhythm has replaced Atrial flutter Vent. rate has decreased by [address] no longer depressed in Inferior leads ST no longer depressed in Anterolateral leads Referred By: Judah Adrian Electronically Signed By: INGRID ROCHA MD
--- NOTE | 2024-06-29 20:06 | ECG_ITS ---
Test Reason : ATRIAL FIBRILLATION Blood Pressure : */* mmHG Vent. Rate : 67 BPM Atrial Rate : 67 BPM P-R Int : 146 ms QRS Dur : 86 ms QT Int : 442 ms P-R-T Axes : 12 -3 13 degrees QTcB Int : 467 ms Normal sinus rhythm Nonspecific T wave abnormality Abnormal ECG When compared with ECG of 29-Jun-2024 18:34, Nonspecific T wave abnormality now evident in Lateral leads Referred By: Judah Adrian Electronically Signed By: INGRID ROCHA MD
[2024-06-29] MEDS: Apixaban 5 MG TABLET PO (21:04)
== END 2024-06-29 21:43 | disposition home or self-care (01) ==
PROVIDERS: Registered Nurse Emergency; Emergency Provider Emergency Medicine; PCP Internal Medicine
DX: I49.8 Other specified cardiac arrhythmias (principal); R00.0 Tachycardia, unspecified; I48.92 Unspecified atrial flutter; R06.02 Shortness of breath; Z87.891 Personal history of nicotine dependence; Z79.899 Other long term (current) drug therapy
CPT/HCPCS: 36415; 71045; 80053; 83605; 83735; 84484; 85025; 93005; 96361; 96374; 96375; 96376; 99285; J0153

== ENCOUNTER 2024-06-29 15:47 | Outpatient (AMB) | payer MEDICARE, SELFPAY ==
--- OUTSIDE RECORDS SUMMARY | 2024-06-29 15:49 | XMS_ITS | Patient Health Record ---
Author Organization [facility] Address [address] [place] [id number] Care Team Providers Care Major Assembler Name Role Phone Rodrigo Moreno MD Primary Care Provider Nic Romo Jr Unavailable Allergies Allergen (clinical drug ingredient) Drug/Non Drug Allergy documented on EMR Reaction Allergy Type Onset Date Status amoxicillin Amoxicillin Unknown Drug Allergy Act bright nickel nickel (uncoded) Unknown Allergy Act bright Reason For Referral No Information Medications Medication SIG (Take, Route, Frequency, Duration) Notes Start Date End Date Status MiraLax (colon prep) 17 GM/SCOOP mixed with Gatorade or Crystal Light Orally begin at 5:00 p.m. the day before the procedure for 1 day 03/14/2021 Active Multivitamin Adults - as directed Orally Active Crestor 10 MG 1 tablet Orally Once a day Active Co Q 10 100 MG as directed Orally O NCE A DAY Active Immunizations Vaccine Route Administration Date Status Comme nts Influenza Unknown 11/16/2017 Administered Influenza Unknown 11/16/2020 Administered Problems Problem Type SNOMED Code ICD Code Onset Dates Problem Status W/U Status Risk Notes Problem 212852620 Colon cancer screening (Z12.11) Active confirmed Problem 209263936 Encounter for other preprocedural examination (Z01.818) Active confirmed Problem 59294464 Dysphagia, unspecified type (R13.10) Active confirmed Plan Of Treatment Pending Test Test Name Order Date COLONOSCOPY WITH BIOPSY 11/27/2010 Future Test Test Name Order Date COLONOSCOPY 12/06/2010 UPPER GI ENDOSCOPY 09/29/2018 COLONOSCOPY 03/14/2021 Insurance Providers Payer Name Payer Address Payer Phone Subscriber Number Group Number Insured Name Patient Relationship to Insured Coverage Start Date Coverage End Date [facility] [address] [place], [place] [id number] [employer] [employer] Self - patient is the insured Medical (General) History Medical History History ICD Code Dhytw-Axxifzbrq-Mbrcn syndrome tuberculosis colonoscopy 2010, ten-year followup 2020 Covid infection 02/23/21 Dysphagia, normal upper endoscopy 11/04 Surgical History Surgery Date(Month/Year) electrophysiology ablation foot surgery ganglion cyst
--- NOTE | 2024-07-01 09:33 | AM.OFFVISNUR ---
Intake Visit Reasons: ekg Allergies amoxicillin [AMOXICILLIN] Allergy (Unknown, Verified 06/29/24 15:30) HIVES Nursing Note Pt presented to office as a walk in visit. She was not felling well and was feeling her heart beating a lot. She was brought her by her , She had A flutter with with pvc's . I was bringing the pt to the ER when she felt very weak and got her a wheel chair. She was taken right over and the ER took her right away. Coding
== END 2024-06-29 15:53 | disposition home or self-care (01) ==
LOC: HO.HCS 15:47
PROVIDERS: PCP Internal Medicine; Visit Provider Internal Medicine Cardiovascular Disease
DX: R94.31 Abnormal electrocardiogram [ECG] [EKG] (principal)
CPT/HCPCS: 93010

== ENCOUNTER → 2024-06-29 15:50 | Outpatient (BNV) | payer MEDICARE, SELFPAY | PROVIDERS: Emergency Provider Emergency Medicine; PCP Internal Medicine; Visit Provider Radiology Diagnostic Radiology | DX: R06.00 Dyspnea, unspecified (principal) | CPT/HCPCS: 71045 ==

== ENCOUNTER 2024-07-12 12:42 | Outpatient (AMB) | payer MEDICARE, SELFPAY ==
--- OUTSIDE RECORDS SUMMARY | 2024-07-12 12:44 | XMS_ITS | Patient Health Record ---
Author Organization [facility] Address [address] [place] [id number] Care Team Providers Care Health Care Legal Assistant Name Role Phone Rodrigo Moreno MD Primary [...] Problem Status W/U Status Risk Notes Problem 626469014 Colon cancer screening (Z12.11) Active confirmed Problem 534676803 Encounter for other preprocedural examination (Z01.818) Active confirmed Problem 50896596 Dysphagia, unspecified type (R13.10) Active confirmed Plan Of Treatment Pending Test Test Name Order Date COLONOSCOPY WITH BIOPSY 11/27/2010 Future Test Test Name Order Date COLONOSCOPY 12/06/2010 UPPER GI ENDOSCOPY 09/29/2018 COLONOSCOPY 03/14/2021 Insurance Providers Payer Name Payer Address Payer Phone Subscriber Number Group Number Insured Name Patient Relationship to Insured Coverage Start Date Coverage End Date [facility] [address] [place], [place] [id number] [place] E[place]LE Self - patient is the insured Medical (General) History Medical History History ICD Code Zudao-Vjbuosutn-Zuudb syndrome tuberculosis colonoscopy 2010, ten-year followup 2020 Covid infection 02/23/21 Dysphagia, normal upper endoscopy 11/04 Surgical History Surgery Date(Month/Year) electrophysiology ablation foot surgery ganglion cyst
--- NOTE | 2024-07-12 12:48 | MHC.OFFVIS ---
Vital Signs 07/12/24 12:52 BP 114/76 Blood Pressure Location Rt brachial Position Sitting Pulse 76 Pulse Source Pulse Oximeter Pulse Oximetry (%) 99 Oxygen Delivery Method Room Air Intake Visit Reasons: [facility] for aflutter with ekg ? ep appt Intake Note: Patient presents for follow up ER 2 weeks ago. Allergies amoxicillin [AMOXICILLIN] Allergy (Unknown, Verified 07/12/24 12:50) HIVES Medication List - Last Reconciled 07/12/24 by Michael Leonardo NP acyclovir 5% (Zovirax) 1 appl topical 6XD PRN 7 days diltiazem HCl ER 120 mg PO DAILY ezetimibe 10 mg PO DAILY metoprolol succinate ER 25 mg (1/2 x 50 mg) PO DAILY multivitamin 1 tab PO DAILY rivaroxaban 20 mg PO DAILY rosuvastatin 20 mg PO DAILY 30 days valacyclovir (Valtrex) 500 mg PO BID PRN 3 days HPI Comments Details: This is a 73-year-old female patient coming in for a hospital discharge follow-up visit. 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 Recently patient has been having frequent episodes of SVT and had increased her metoprolol to 50 mg, however she continued to have the SVT. Patient states that previously with her history of SVT, they happened with exertion but now is occurring even during rest. Patient was subsequently seen in the office for an EKG which showed a flutter with rapid rate in the 150s and therefore was sent to the ER. In the ER patient was given IV metoprolol x3 with no effect and therefore was given adenosine that confirmed atrial flutter and was treated with IV diltiazem that converted her to a normal rhythm. Patient notes that she is still having the episodes of SVTs at rest lasting anywhere between half an hr to 2 hrs. She reports symptoms of dizziness, palpitations, and shortness of breath along with these episodes. Patient is frustrated that this has major effects to her lifestyle as it stops her from being active. Patient otherwise states that she has been compliant with all her medications and is denying any exertional chest pain, orthopnea, PND, leg edema, presyncope, or syncope. [facility] Medical History Abnormal Pap smear of cervix Elevated cholesterol CAD (coronary artery disease) Dysphagia COVID-19 virus infection WPW (Qkrvj-Trmwwjzwm-Bnyfu syndrome) Elevated coronary artery calcium score SVT (supraventricular tachycardia) Hyperlipidemia Surgical History History of surgery on wrist History of surgical removal of ganglion cyst Hx of foot surgery History of esophagogastroduodenoscopy (EGD) H/O colonoscopy History of cardiac radiofrequency ablation Family History Father Gastric cancer Mother CVD (cardiovascular disease) Social History Alcohol intake: never Patient Tobacco Use Status: Former Tobacco user Tobacco use type: Cigarette Years Smoked: 10 Current occupational status: retired Current occupation: right handed Sexual orientation: Straight/Heterosexual Gender identity: Female Physical Exam Vital Signs: Last Vital Signs Pulse 76 07/12/24 12:52 BP 114/76 07/12/24 12:52 Pulse Ox 99 07/12/24 12:52 Oxygen Delivery Method Room Air 07/12/24 12:52 Const General: cooperative, healthy appearing, comfortable and no acute distress Orientation/consciousness: patient oriented x3 HEENT Head: Yes normal to inspection Neck Neck: Yes normal visual inspection, Yes trachea midline and Yes supple Chest Chest palpation & inspection: normal inspection of the chest Resp Effort & Inspection: normal respiratory effort Auscultation: clear to auscultation bilaterally, no crackles, no rales, no rhonchi and no wheezes Cardio Jugular venous distension: no JVD Palpation: normal PMI Rate: regular rate Rhythm: regular rhythm Heart sounds: S1 normal heart sound present, S2 normal heart sound present, no click, no gallops, no murmurs and no rubs Peripheral pulses: Peripheral pulses 2+ throughout GI Inspection: Yes normal to inspection Palpation (GI): Soft to palpation Auscultation: normal bowel sounds Skin General skin exam: no rashes or lesions noted Neuro General: patient oriented x3 Extrem General: Yes normal to inspection, No no pedal edema and No calf tenderness Psych Appearance: grossly normal Mental Status: mental status grossly normal Speech and movement: Normal speech and movement present Office Procedures EKG Details: EKG today shows normal sinus rhythm, rate 68 beats per minute, low-voltage QRS, nonspecific STT wave, [place], [place]. [id number], Complete Assessment & Plan Assessment & Plan (1) Atrial flutter: Code(s): I48.92 - Unspecified atrial flutter Category: Medical (2) SVT (supraventricular tachycardia): Code(s): I47.1 - Supraventricular tachycardia Category: Medical (3) Hospital discharge follow-up: Code(s): Z09 - Encounter for follow-up examination after completed treatment for conditions other than malignant neoplasm Plan EKG today showed normal sinus rhythm. Continue Xarelto for full anticoagulation therapy. Denies any signs of bleeding. Continue diltiazem and metoprolol for rate control approach. Given her symptoms and recurrent episodes of SVT along with an episode of atrial flutter, we will send patient to EP for ablation. Patient would also like to explore discussions around pacemaker given her recurrent SVT bouts. Patient would like to see mass General EP, referral placed. Blood pressure within normal limits. Ideally, blood pressure goal less than 130/80. Continues statin and Zetia therapy with an LDL goal less than 70. Advised heart healthy diet, regular exercise, adequate hydration, med compliance, and management of vascular risk factors. We will follow up with the patient in 4 months. In the interim, patient will call the office with any concerns or change in symptoms. This note was generated using voice recognition software. While every effort has been made to ensure accuracy and proper sales branch manager, there may be occasional errors that could affect the content or meaning of the described symptoms. Orders: Orders AMB EKG-In Office Today I47.1 - Supraventricular tachycardia, I48.92 - Unspecified atrial flutter Referrals Cardiac Electrophysiology Referral I47.1 - Supraventricular tachycardia, R00.2 - Palpitations Coding Level of Care Code Est Pt Level 4 (38645) Complex EM visit Add On G2211 Diagnoses Atrial flutter I48.92 SVT (supraventricular tachycardia) I47.1 Hospital discharge follow-up Z09 CPT Codes EKG - CPT: 36479-[id number], Complete ([id number]) Time Spent (min) 32 Comment Time spent in reviewing the chart, test results, assessment, counseling and documentation.
[2024-07-12 12:52] VITALS: BP 114/76; PULSE 76; O2SAT 99
== END 2024-07-12 13:38 | disposition home or self-care (01) ==
LOC: HO.HCS 12:43
PROVIDERS: PCP Internal Medicine
DX: I48.92 Unspecified atrial flutter (principal); I47.10 Supraventricular tachycardia, unspecified; Z09 Encounter for follow-up examination after completed treatment for conditions other than malignant neoplasm
CPT/HCPCS: 93010; 99214; G2211

== ENCOUNTER → 2024-07-12 12:42 | Outpatient (BNVA) | payer MEDICARE, SELFPAY | PROVIDERS: PCP Internal Medicine | DX: I48.92 Unspecified atrial flutter (principal); I47.10 Supraventricular tachycardia, unspecified; Z09 Encounter for follow-up examination after completed treatment for conditions other than malignant neoplasm | CPT/HCPCS: 93005; 99212 ==

== ENCOUNTER 2024-08-03 12:18 | Outpatient (REF) | payer MEDICARE, SELFPAY ==
--- NOTE | ~2024-08-03 | MM_ITS ---
EXAMINATION: MM DIAGNOSTIC DIGITAL BREAST TOMOSYNTHESIS, RIGHT CLINICAL INFORMATION: 6 month follow-up for asymmetry in the lateral right breast on CC view middle to posterior depth without sonographic correlate. COMPARISON: Mammography: Priors on PACS. TECHNIQUE: Digital breast tomosynthesis is performed in both the craniocaudal and mediolateral oblique views along with computer-aided detection (CAD). Synthesized 2D images are generated from the tomosynthesis. FINDINGS: The breasts are heterogeneously dense, which may obscure small masses (ACR BI-RADS breast composition Category c). Asymmetry in the lateral right breast middle to posterior depth on CC view without prior sonographic correlate is not significantly changed from prior mammography dating back for 6 months. No suspicious calcifications or other abnormal findings. MM/MM tomosynthesis diagnostic RT IMPRESSION: Asymmetry in the right breast laterally CC view middle to posterior depth without prior sonographic correlate not significantly changed on prior mammogram dating back for 6 months. Recommend 6 month follow-up when the patient is due for bilateral mammography to demonstrate 1 year stability. ASSESSMENT: BI-RADS BI-RADS 3 - Probably benign finding(s) - 6 month follow-up suggested RECOMMENDATION: 6 Month F/U Results were provided to the patient at time of visit by the technologist. This patient's information was entered into a reminder system with a target due date for their next mammogram. Electronically signed by: Ayaka Thompson DO 08/03/2024 01:29 PM EDT
--- OUTSIDE RECORDS SUMMARY | 2024-08-03 14:09 | XMS_ITS | Patient Health Record ---
Author Organization [facility] Address [address] [place] [address] Care Team Providers Care Pathology Assistant Name Role Phone Rodrigo Moreno MD Primary Care Provider Avery Squires Unavailable [phone] Allergies Allergen (clinical drug ingredient) Drug/Non Drug Allergy documented on EMR Reaction Allergy Type Onset Date Status nickel hernando (uncoded) itchy, rash Allergy A ctive amoxicillin Amoxicillin hives Drug Allergy Act bright Reason For Referral No Information Medications Medication SIG (Take, Route, Fr equency, Duration) Notes Start Date End Date Status Calcium 500 MG 1 tablet with meals Orally Twice a day for 30 day(s) Not-Taking Aspirin 81 MG 1 tablet Orally Once a day for 30 day(s) Active Fish Oil 500 MG 1 capsule Orally Twi ce a day for 30 day(s) Active Social History Tobacco use other than smoking: Question Answer Notes Are you an other tobacco user? No Problems Problem Type SNOMED Code ICD Code Onset Dates Problem Status W/U Status Risk Notes Problem Disorder of joint of ankle and/or foot (250787541) Arthritis - Degenerative (719.97) Active confirmed Problem Hallux valgus (588861631) Hallux Valgus (735.0) Active confirmed Problem Hammer toe (542812454) Hammer toe (735.4) Active confirmed Problem Pain in limb (09406497) Pain in Limb (729.5) Active confirmed Plan Of Treatment Pending Test Test Name Order Date X ray : Foot, left 2V 10/26/2012 X ray : Foot, left 2V 11/04/2012 X ray : Foot, left 2V 11/17/2012 X ray : Foot, left 2V 12/30/2012 X ray : Foot, right 2V 07/26/2013 X ray : Foot, left 3V 09/01/2012 Insurance Providers Payer Name Payer Address Payer Phone Subscriber Number Group Number Insured Name Patient Relationship to Insured Coverage Start Date Coverage End Date [employer] [address] [address] [place] [address] [id number] Olga Galvez Self - patient is the insured Medical (General) History Medical History History ICD Code measles mumps chicken pox tuberculosis Surgical History Surgery Date(Month/Year) bunionectomy right foot hammer toe ganglion cyst bunionectomy left foot 10/21/2012
== END 2024-08-03 12:19 | disposition home or self-care (01) ==
LOC: HO.MAMMO 12:18
PROVIDERS: PCP Internal Medicine; Visit Provider Internal Medicine
DX: R92.2 Inconclusive mammogram (principal)
CPT/HCPCS: 77061; 77065

== ENCOUNTER → 2024-08-03 12:30 | Outpatient (BNV) | payer MEDICARE, SELFPAY | PROVIDERS: PCP Internal Medicine; Visit Provider Internal Medicine | DX: N64.89 Other specified disorders of breast (principal) | CPT/HCPCS: 77065; G0279 ==

== ENCOUNTER 2024-10-16 08:09 | Inpatient (IN) | payer MEDICARE, SELFPAY ==
--- NOTE | 2024-10-16 08:12 | ECG_ITS ---
Test Reason : TACHY Blood Pressure : */* mmHG Vent. Rate : 52 BPM Atrial Rate : * BPM P-R Int : * ms QRS Dur : 86 ms QT Int : 380 ms P-R-T Axes : * -11 -35 degrees QTcB Int : 353 ms Atrial fibrillation with slow ventricular response Nonspecific ST and T wave abnormality Abnormal ECG When compared with ECG of 16-Oct-2024 08:14, Vent. rate has decreased by 99 bpm Referred By: Amirah Linares Electronically Signed By: LIZET MAGALLON
[2024-10-16 08:16] VITALS: BP 150/82; PULSE 122; RESP 18; TEMP 36.3; O2SAT 98; BMI 26.1
--- NOTE | 2024-10-16 08:26 | ED_ITS ---
HPI - General Adult General Chief complaint: Arrhythmia/Palpitations Stated complaint: SVT Time Seen by Provider: 10/16/24 08:25 Source: patient Mode of arrival: ambulatory Limitations: no limitations History of Present Illness ED Provider: Amirah Linares PA-C HPI narrative: Patient is a 73 year old assigned female at with a history of SVT, tyfms-alqkqpwkq-syumi s/p ablation, and atrial flutter on Xarelto + cardizem + metoprolol, presenting to the emergency department today with a rapid heart rate. Patient states that she woke up this morning with a rapid heart rate. Patient states that she took her medication as prescribed today. Patient denies any other symptoms at this time. Patient states the last time this happened she was given cardizem and metoprolol and it converted her. Related Data Home Medications ?Medication ?Instructions ?Recorded ?Confirmed multivitamin 1 tab PO DAILY 08/27/2006/17 Previous Rx's ?Medication ?Instructions ?Recorded acyclovir 5 % topical ointment 1 appl topical 6XD PRN prn 7 days 02/11/22 (Zovirax) #30 grams valacyclovir 500 mg tablet 500 mg PO BID PRN antiviral 3 days 02/11/22 (Valtrex) #30 tabs rosuvastatin 20 mg tablet 20 mg PO DAILY 30 days #30 t abs 08/19/23 ezetimibe 10 mg tablet 10 mg PO DAILY #90 tabs 03/19 04/12 diltiazem HCl 120 mg capsule,24 120 mg PO DAILY #90 ca ps 07/13/24 hr,extended release rivaroxaban 20 mg tablet 20 mg PO DAILY #30 tabs 06/17 10/10 metoprolol succinate 50 mg 25 mg (1/2 x 50 mg) PO JENNY Y #45 09/08/24 tablet,extended release 24 hr tabs Allergies Allergy/AdvReac Type Severity Reaction Status Date / Time amoxicillin (AMOXICILLIN) Allergy Unknown HIVES Verified 10/16/24 08:18 nickel Allergy Rash Verified 10/16/24 08:18 Review of Systems 2 Constitutional: Constitutional: Reports as per HPI Eyes: Eyes: Reports as per HPI ENT: Reports as per HPI Cardiovascular: Cardiovascular: Reports as per HPI Respiratory: Respiratory: Reports as per HPI Gastrointestinal: Gastrointestinal: Reports as per HPI Genitourinary: Genitourinary: Reports as per HPI Musculoskeletal: Musculoskeletal: Reports as per HPI Integumentary/Breasts: Skin/Breast: Reports as per HPI Neurologic: Reports as per HPI Psychiatric: Psychiatric: Reports as per HPI Endocrine: Endocrine: Reports as per HPI Hematologic/Lymphatic: Hematologic/Lymphatic: Reports as per HPI Allergic/Immunologic: Allergic/Immunologic: Reports as per HPI [facility] Past Medical History Attestation statement: The following information was validated with the patient. (all information validated with the patient's ) Source: old records reviewed and obtained from family (patient's provided additional history and confirmed the history provided by the patient. ) Medical History Abnormal Pap smear of cervix Elevated cholesterol CAD (coronary artery disease) Dysphagia COVID-19 virus infection WPW (Cjtbg-Dcqjgvyfq-Fuvpn syndrome) Elevated coronary artery calcium score SVT (supraventricular tachycardia) Hyperlipidemia Surgical History History of surgery on wrist History of surgical removal of ganglion cyst Hx of foot surgery History of esophagogastroduodenoscopy (EGD) H/O colonoscopy History of cardiac radiofrequency ablation Family History Family History Father Gastric cancer Mother CVD (cardiovascular disease) Social History Social History Alcohol intake: never Patient Tobacco Use Status: Former Tobacco user Tobacco use type: Cigarette Years Smoked: 10 Advance Directives: Yes Advance Directives Information Provided: Yes Advance Directives on File: No Current occupational status: retired Current occupation: right handed Sexual orientation: Straight/Heterosexual Gender identity: Female Physical Exam ED Vital Signs: Vital Signs - 24 hr 10/16/24 08:16 10/16/24 09:12 10/16/24 09:18 Temperature 97.4 F Pulse Rate 122 H 127 H 119 H Respiratory Rate 18 Blood Pressure 150/82 H 121/65 121/65 Pulse Oximetry 98 Oxygen Delivery Method Room Air 10/16/24 09:37 Temperature Pulse Rate 104 H Respiratory Rate 18 Blood Pressure 123/66 Pulse Oximetry 96 Oxygen Delivery Method Room Air BMI result Body Mass Index 26.1 Const General: cooperative, no acute distress, alert and awake Nutritional Appearance: well nourished Orientation/consciousness: patient oriented x3 HENMT Head: Yes normal to inspection and Yes atraumatic Ears: hearing grossly normal bilaterally and external ears normal General nose exam: Normal external nose present, no nasal discharge noted and no epistaxis Face and sinus: Yes normal facial exam, No abrasion and No laceration Mouth: Normal oral and palatal mucosa present, no drooling and no muffled voice Eyes General: appearance normal, both eyes and all related structures Periorbital: periorbital findings normal Eyelids: Yes eyelids normal Conjunctivae: conjunctivae normal Pupils: Equal, round and reactive pupils present EOM: EOMs intact bilaterally Neck Neck: Yes normal visual inspection and Yes full ROM Resp Effort & Inspection: normal respiratory effort and able to speak in complete sentences Cardio Rate: tachycardic Rhythm: regular rhythm Neuro General: patient oriented x3, moves all extremities and CN's II-XI intact bilaterally Cranial nerves: Yes Equal, round and reactive pupils present Cognition (Neuro): normal cognition Extrem General: Yes normal to inspection, Yes full ROM and Yes capillary refill normal Psych Appearance: grossly normal Mental Status: mental status grossly normal Affect: normal affect Attitude: cooperative Thought process: Normal thought process present Thought content: Normal thought content present Insight: Good insight present (Psych) Medications Administered Generic Name Dose Route Start Last Admin Trade Name Freq PRN Reason Stop Dose Admin Diltiazem HCl 125 mg/ Sodium 125 mls @ 0 mls/hr 10/16/24 09:00 10/16/24 09:18 Chloride IVCONT 10 mg/hr .Q0M LOS 10 mls/hr Protocol Administration Per Protocol Discontinued Medications Generic Name Dose Route Start Last Admin Trade Name Freq PRN Reason Stop Dose Admin Adenosine 6 mg 10/16/24 08:48 10/16/24 08:59 Adenosine 6 Mg/2 Ml Vial IVPUSH 10/16/24 08:49 6 mg ONCE ONE Administration Adenosine 12 mg 10/16/24 08:48 10/16/24 08:59 Adenosine 6 Mg/2 Ml Vial IVPUSH 10/16/24 08:49 12 mg ONCE ONE Administration Adenosine 12 mg 10/16/24 08:48 10/16/24 09:03 Adenosine 6 Mg/2 Ml Vial IVPUSH 10/16/24 08:49 Not Given ONCE ONE Diltiazem HCl 10 mg 10/16/24 08:59 08/31/25 09:12 Diltiazem Hcl 50 Mg/10 Ml Vial IVPUSH 10/16/24 09:00 10 mg ONCE ONE Administration Sodium Chloride 1,000 mls @ 999 mls/hr 10/16/24 09:00 10/16/24 09:12 Ns IV 10/16/24 10:00 999 mls/hr .Q1H1M LOS Administration Medical Decision Making Medical Decision Making [facility] Narrative: Patient is a 73 year old assigned female at with a history of SVT, aczih-smwctkgtw-omacu s/p ablation, and atrial flutter on Xarelto + cardizem + metoprolol, presenting to the emergency department today with a rapid heart rate. Patient's physical exam initially showed seemingly regular tachycardia in the 180s. Patient's blood work was unremarkable. Patient's EKG showed SVT vs. atrial flutter in a 2:1 pattern. Patient was initially given 6mg of adenosine with no resolution of symptoms. Patient was then given 12mg of Adenosine which did slow the patient's rate down enough for a repeat EKG which confirmed the patient was in atrial flutter. Patient was then given 10mg of IV cardizem and then started on a cardizem drip which did bring the patient's rate down to below 100bpm. I spoke to the hospitalist team who agreed to admission. I explained my physical exam findings as well as all test results to the patient and the patient's . I answered all questions asked by the patient and the patient's . Patient and the patient's verbalized agreement and understanding with this treatment plan and admission. Differential Diagnosis Differential Diagnoses: The differential diagnosis associated with the presentation includes SVT Tachycardia Atrial flutter with rapid ventricular response Atrial fib with rapid ventricular response Admission/Observation Consideration of admission/observation: Escalation of care including admission/observation considered Patient admitted as noted in the MDM Rationale portion of this note. Consult Healthcare Provider Management of the patient was discussed with: Hospitalist (agreed to admission as noted in the MDM Rationale portion of this note. ) Lab Data [facility] Lab Attestation statement: I reviewed the patient's lab results. My interpretation of these results are in the MDM Rationale portion of this note. 10/16/24 08:32 10/16/24 08:32 Labs: Lab Results 10/16/24 10/16/24 Range/Units 08:31 08:32 WBC 6.4 (4.8-10.8) X10*3/uL RBC 4.49 (4.20-5.50) X10*6/uL Hgb 14.6 (12.0-16.0) g/dl Hct 42.6 (37.0-47.0) % MCV 94.9 (80.0-98.0) fL MCH 32.5 (27.0-33.0) pg MCHC 34.3 (31.0-35.0) g/dl RDW 12.9 (11.0-16.0) % Plt Count 229 (160-400) X10*3/uL MPV 8.8 L (9.4-12.3) fL Immature Gran % (Auto) 0.5 H (0.0-0.4) % Neut % (Auto) 61.1 (45-73) % Lymph % (Auto) 26.6 (20-40) % Lynn % (Auto) 11.0 (2-11) % Eos % (Auto) 0.5 (0-4) % Baso % (Auto) 0.3 (0-2) % Lymph # (Auto) 1.7 (1.2-4.9) X10*3/uL Lynn # (Auto) 0.7 (0.1-1.2) X10*3/uL Eos # (Auto) 0.0 (0.0-0.4) X10*3/uL Baso # (Auto) 0.0 (0.0-0.2) X10*3/uL Abs Immat Gran (auto) 0.03 (0.00-0.03) X10*3/uL Absolute Neuts (auto) 3.9 (2.0-8.3) x10*3/uL Absolute Nucleated RBC 0.000 (0.0-0.012) X10*3/uL Nucleated RBC % (auto) 0.0 (0.0-0.2) /100WBC PT 13.7 H (10.9-12.4) SEC INR 1.2 H (0.9-1.1) Sodium 143 (135-145) mmol/L Potassium 4.8 (3.3-5.1) mmol/L Chloride 106 (96-108) mmol/L Carbon Dioxide 25 (22-29) mmol/L Anion Gap 17 (12-20) BUN 12 (9-16) mg/dL Creatinine 0.80 (0.5-1.4) mg/dL Estim Creat Clear Calc 57.5 Estimated GFR > 60 Random Glucose 119 H (60-115) mg/dL Calcium 8.9 D (8.4-10.2) mg/dL Total Bilirubin 0.3 (0.0-1.0) mg/dL AST 37 H (5-31) U/L ALT 32 H (0-31) U/L Alkaline Phosphatase 51 (39-117) U/L Troponin I High Sens < 2.7 D (<3.5-17.0) ng/L Total Protein 7.5 (6.5-8.0) g/dL Albumin 4.6 (3.5-5.0) g/dL Independent Interpretation I performed an independent interpretation of an: EKG Interpretation: I independently interpreted this EKG and am in agreement with the below findings: Vent. Rate: 151 BPM Atrial Rate: * BPM P-R Int: * ms QRS Dur: 82 ms QT Int: 350 ms P-R-T Axes: * -14 144 degrees QTcB Int: 554 ms Atrial fibrillation with rapid ventricular response Nonspecific ST and T wave abnormality When compared with ECG of 29-Jun-2024 20:30, Atrial fibrillation has replaced Sinus rhythm Vent. rate has increased by 84 bpm DD/ 0814 I independently interpreted this EKG and am in agreement with the below findings: Vent. Rate: 69 BPM Atrial Rate: 79 BPM P-R Int: 160 ms QRS Dur: 84 ms QT Int: 410 ms P-R-T Axes: 19 -17 -34 degrees QTcB Int: 439 ms Sinus rhythm with marked sinus arrhythmia with Premature atrial complexes with Aberrant conduction Low voltage QRS Nonspecific ST and T wave abnormality When compared with ECG of 16-Oct-2024 08:56, Sinus rhythm has replaced Atrial fibrillation QT has lengthened DD/ 0929 Independent Historian Clinical information obtained from an independent historian. History obtained from or confirmed by: Spouse (patients' provided additional history and confirmed the history provided by the patient. ) Critical Care Time Critical Care Time Critical Care Time: Yes Total Critical Care Time: 46 Attestation: I spent 46 minutes of Critical Care Time with this patient. This does not include time spent on separately reported billable procedures. Discharge Plan Discharge Clinical Impression: Atrial flutter with rapid ventricular response Patient Disposition: Admitted As Inpatient
[2024-10-16 08:36] LABS: MANUAL DIFF FLAG NO
--- OUTSIDE RECORDS SUMMARY | 2024-10-16 08:36 | XMS_ITS | Patient Health Record ---
Author Organization [facility] Address [address] [place] [id number] Care Team Providers Care Ultrasonographer Name Role Phone Rodrigo Moreno MD Primary Care Provider Nic Romo Jr Unavailable [phone] Allergies Allergen (clinical drug ingredient) Drug/Non Drug Allergy documented on EMR Reaction Allergy Type Onset Date Status Information temporarily unavailable Amoxicillin Unknown Drug Allergy Active Information temporarily unavailable nickel (uncoded) Unknown Allergy Active Reason For Referral No Information Medications Medication [...] Problem Status W/U Status Risk Notes Problem 217139235 Colon cancer screening (Z12.11) Active confirmed Problem 621531523 Encounter for other preprocedural examination (Z01.818) Active confirmed Problem 51880921 Dysphagia, unspecified type (R13.10) Active confirmed Plan Of Treatment Pending Test Test Name Order Date COLONOSCOPY WITH BIOPSY 11/27/2010 Future Test Test Name Order Date COLONOSCOPY 12/06/2010 UPPER GI ENDOSCOPY 09/29/2018 COLONOSCOPY 03/14/2021 Insurance Providers Payer Name Payer Address Payer Phone Subscriber Number Group Number Insured Name Patient Relationship to Insured Coverage Start Date Coverage End Date [facility] [address] [place], [place] [id number] ALMA EAGLE Self - patient is the insured Medical (General) History Medical History History ICD Code Cxcjt-Xkasvqlmr-Epnji syndrome tuberculosis colonoscopy 2010, ten-year followup 2020 Covid infection 02/23/21 Dysphagia, normal upper endoscopy 11/04 Surgical History Surgery Date(Month/Year) electrophysiology ablation foot surgery ganglion cyst
--- OUTSIDE RECORDS SUMMARY | 2024-10-16 08:36 | XMS_ITS | Patient Health Record ---
Author Organization [facility] Address [address] [place] [address] Care Team Providers Care Technician Test Systems Name Role Phone Rodrigo Moreno MD Primary Care Provider Avery Squires Unavailable [phone] Allergies Allergen (clinical drug ingredient) Drug/Non Drug Allergy documented on EMR Reaction Allergy Type Onset Date Status Information temporarily unavailable hernando (uncoded) itchy, rash Allergy Active Information temporarily unavailable Amoxicillin hives Drug Allergy Active Reason For Referral No Information Medications Medication SIG (Take, Route, Fr equency, Duration) Notes Start Date End Date Status Calcium 500 MG 1 tablet with meals Orally Twice a day; Duration: 30 day(s) Not-T aking Aspirin 81 MG 1 tablet Orally Once a day; Duration: 30 day(s) Active Fish Oil 500 MG 1 capsule Orally Twi ce a day; Duration: 30 day(s) Active Social History Tobacco use other than smoking: Question Answer Notes Are you an other tobacco user? No Problems Problem Type SNOMED Code ICD Code Onset Dates Problem Status W/U Status Risk Notes Problem Information temporarily unavailable Arthritis - Degenerative (719.97) Active confirmed Problem Information temporarily unavailable Hallux Valgus (735.0) Active confirmed Problem Information temporarily unavailable Hammer toe (735.4) Active confirmed Problem Information temporarily unavailable Pain in Limb (729.5) Active confirmed Plan [...] Coverage End Date [employer] Benefits [address] [address] [place] [address] [id number] Olga Galvez Self - patient is the insured Medical (General) History Medical History History ICD Code measles mumps chicken pox tuberculosis Surgical History Surgery Date(Month/Year) bunionectomy right foot hammer toe ganglion cyst bunionectomy left foot 10/21/2012
--- OUTSIDE RECORDS SUMMARY | 2024-10-16 08:36 | XMS_ITS | Clinical Summary ---
Author Organization [facility] Address [address] [address] Phone Care Team Providers Care Log Operations Coordinator Name Role Phone Rodrigo Moreno MD Primary Care Provider [phone] Allergies Active Allergy Reactions Criticality Noted Date Comments Amoxicillin 07/09/2015 Other reaction(s): hives Clindamycin Palmitate Hcl 07/09/2015 Other reaction(s): C DIFF Nickel Rash Low 02/19/2023 Medications therapeutic multivitamin tablet Take 1 tablet by mouth daily. Active ezetimibe (ZETIA) 10 mg tablet Take 1 tablet by mouth daily. 01/14/2022 Active rosuvastatin (CRESTOR) 10 MG tablet Take 10 mg by mouth daily. Active metoprolol succinate (TOPROL-XL) 25 MG 24 hr tablet Take 1 tablet by mouth daily. 12/21/2022 Active LORazepam (ATIVAN) 0.5 MG tabletIndications :Anxiety Take 1 tablet (0.5 mg total) by mouth every 8 (eight) hours as needed for anxiety. 10 tablet 11/02/2023 Active Active Problems Problem Noted Date Diagnosed Date SVT (supraventricular tachycardia) 08/27/2023 Overview (08/27/2023): Was eval [facility] -08/10/23 had holter- + SVT highly symptomatic, did not juan manuel metoprolol switched to cardizem, ref to EPS to consider possible ablation. Educated on valsalva, and advsied to use metoprolol PRN for severe symptoms they plan on myocardial perfusion imaging to r/o progressive CAD. Follows with Dr. 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 Hyperlipidemia 10/22/2017 Pure hypercholesterolemia 10/22/2017 Encounters Date Type Department Care Team Description 08/29/2024 Telephone [facility] [address] [facility] [place] [address] Rodrigo Moreno MD Patient Called Back Inquiring Status (PCP retiring ) 08/03/2024 Orders Only [facility] [address] [facility] [place] [address] Provider, MD Gris from Last 3 Months Immunizations Immunization Administration Dates Next Due COVID-19 (Pre-12/08) Pfizer Vaccine, mRNA, PF 01/07/2022,04/27/2020,04/04/2020 Influenza High-Dose Quadriva lent Preservative Free IM 02/19/2023 Influenza High-Dose Trivalen t Preservative Free IM 12/15/2018,12/11/2017,12/11/2016,01/11 Influenza, Unspecified Formulation 01/07,11/16/2020,11/09/2019,11/16 Pneumococcal conjugate PCV13 01/12/2016 Pneumococcal polysaccharide PPSV23 12/11/2016 Tdap 11/11/2011 Zoster live 03/03/2018 Zoster recombinant 03/03/2018,12/01/2017 Family History Medical History Relation Comments Cancer Father Heart disease Mother Thyroid disease Sister 1 Other Unspecified Father at 6 6 of gastric cancer. Mother at 49 of an [place]. Sister has hypothyroidism. She has two children in their 30s who are healthy. Relation Status Comments Father (Age 66) gastric cancer Mother Sister 1 Alive Sister 2 Alive Son 1 Alive Son 2 Alive Unspecified Social History Tobacco Use Types Packs/Day Years Used Date Smoking Tobacco: Former Cigarettes 1 10 0 08/17/1968 - 08/17/1978 Smokeless Tobacco: Never Tobacco Cessation:Counseling Given: Not Answered Comments:quit 40 years ago Alcohol Use Standard Drinks/Week Comments Yes 2 (1 standard drink = 0.6 oz pur e alcohol) 1-2 drinks, 2-3 x week Child or Family Care Answer Date Record ed Do you have problems with on e of the following making it difficult for you to work, study, or receive health care? No 02/13/2022 Education Answer Date Recorded Are you interested in more education? Not on juana e 02/14/2024 Are you concerned about learning? Not on file 02/14/2024 No 02/14/2024 No 02/14/2024 Food Answer Date Recorded Within the past 6 months we worried whether our food would run out before we got money to buy more. Never True 02/13/2022 Within the past 6 months the food we bought just didn't last and we didn't have enough money to get more. Never True Residential Stability Answer Date Recor ded What is your housing situation today? I have nicole nieves 02/13/2022 How many times have you moved in the past 12 thu ths? One time 02/13/2022 Paying for Meds Answer Date Recorded Do you have trouble paying for medicines? No 02/13/2022 Paying Utility Bills Answer Date Record ed Do you have trouble paying your heating or elect ricity bill? No 02/13/2022 Transportation Answer Date Recorded Has the lack of transportati on kept you from medical appointments or from getting medications? No 02/13/2022 Unemployment Answer Date Recorded Are you currently unemployed or working on a part-time or temporary basis, and looking for work? No 02/13/2022 Digital Access Answer Date Recorded No 07/12/2022 No 07/12/2022 Reliable internet access at home? Not on file 07/12/2022 Device with a working camera? Not on file Intimate Partner Violence Answer Date R ecorded Denied Basic Needs Not on file 02/13/2023 In the past 12 months have y ou been in a relationship with a person who hurts, threatens, or tries to control you? No 02/13/2023 Worried food would run out Not on file 02/13 In the past 12 months have y ou been in a relationship with a person who hurts, threatens, or tries to control you? No 02/13/2023 Comments Unknown Sex and Gender Information Value Date Recorded Sex Assigned at Female 07/18/2024 8:27 AM EDT Legal Sex Female 10:36 PM EDT Gender Identity Female 07/18/2024 8:27 AM EDT Sexual Orientation Straight 07/18/2024 8: 27 AM EDT Last Filed Vital Signs Vital Sign Reading Time Taken Comments Blood Pressure 124/80 02/19/2023 8:31 AM EST Pulse 63 02/19/2023 8:31 AM EST Temperature 36 C (96.8 F) 08/17/2020 1:03 PM EDT Respiratory Rate 16 02/19/2023 8:31 AM EST Oxygen Saturation 99% 02/19/2023 8:31 AM EST Inhaled Oxygen Concentration - - Weight 64.9 kg (143 lb) 02/19/2023 8:31 AM EST Height 160 cm (5' 3 ) 02/19/2023 8:31 AM EST Body Mass Index 25.33 02/19/2023 8:31 AM EST Plan of Treatment Upcoming Encounters Date Type Department Care Team (Late st Contact Info) Description 12/16/2024 8:30 AM EDT Office Visit [facility] [address] [place] [address] Fuad Pearce MD [address] [place] [address] [email or web address] 02/20/2025 1:30 PM EST Office Visit [facility] Internal Medicine [address] [place] [address] Rodrigo Moreno MD [address] [place] [address] [email or web address] Health Maintenance Due Date Last Done Comments SMOKING Hx and SMOKELESS TOBACCO SCREENING 10/30/1963 HEPATITIS C SCREENING 1968 COLOGUARD 10/30/1995 FIT TEST 10/30/1995 FOBT 10/30/1995 SIGMOIDOSCOPY 10/30/1995 VIRTUAL COLONOSCOPY 10/30/1995 ZOSTER VACCINES (3 of 3) 04/28/2018 019, 03/03/2018, 12/01/2017 Adult Td,Tdap Booster 11/10/2021 11/11/2011 COVID-19 VACCINE ( season) 2023 01/07/2022, 04/27/2020, 04/04/2020 DEPRESSION SCREENING 02/14/2024 02/13/2023 LIPID PANEL 09/28/2025 09/28/2020, 09/16, 09/28/2020, Additional history exists RSV VACCINE (1 - 1-dose 75+ series) 2025 MAMMOGRAM 08/03/2026 08/03/2024, 01/16, 01/06/2024, Additional history exists COLONOSCOPY 04/20/2031 04/19/2021, 05/2021, 11/27/2010 COLORECTAL CANCER SCREENING 04/20/2031 PNEUMOCOCCAL VACCINES (50+ years) Completed 12/11/2016, 01/12/2016 OSTEOPOROSIS SCREENING INITIAL (ONE-TIME) Completed 02/19/2023, 08/11/2018 HEPATITIS A VACCINES Aged Out No long er eligible based on patient's age to complete this topic HIB VACCINES Aged Out No longer eligi ble based on patient's age to complete this topic MENINGOCOCCAL VACCINES (ACWY) Aged Out No longer eligible based on patient's age to complete this topic MENINGOCOCCAL VACCINES (B) Aged Out N o longer eligible based on patient's age to complete this topic Medical Devices Not on file Procedures Procedure Name Priority Date/Time Associated Diagnosis Comments HM MAMMOGRAPHY Routine 08/03/2024 1:34 PM EDT BD DXA SCREENING Routine 02/19/2023 8:49 AM EST Postmenopausal estrogen deficiency HM COLONOSCOPY FOR RESULT ENTRY ONLY Routine 04/19/2021 OUTSIDE HDL Routine 09/28/2020 from Last 3 Months or Most Recently Relevant to Health Maintenance Results * HM MAMMOGRAPHY FOR RESULT ENTRY ONLY (08/03/2024 1:34 PM EDT) us Historical Provider HEALTH MAINTENANCE Final Result * HM COLONOSCOPY FOR RESULT ENTRY ONLY (04/19/2021) us Historical Provider HEALTH MAINTENANCE Edited Result - Final * Outside HDL (09/28/2020) HDL - External 75 40 - 80 mg/dL us Historical Provider LAB BLOOD ORDERABLES Crystal l Result * DEXA SCAN (08/11/2018) Rodrigo Moreno MD HEALTH MAINTENANCE Edited Res ult - Final from Last 3 Months or Most Recently Relevant to Health Maintenance Insurance [facility] MEDICARE PPO BLUE REPLACEMENT MEDICARE PART A & [place] BL[place] MEDICARE PART A & [place] MEDICARE PART A & B [facility] MEDICARE PPO BLUE REPLACEMENT MEDICARE PART A & [place] RE[place] MEDICARE PART A & B [facility] MEDICARE PPO BLUE REPLACEMENT MEDICARE PART A & B [facility] MEDICARE PPO BLUE REPLACEMENT MEDICARE PART A & [place] [address] [place] [address] MEDICARE PPO BLUE REPLACEMENT MEDICARE PART A & B [facility] MEDICARE PPO BLUE REPLACEMENT MEDICARE PART A & B Care Teams Log Operations Coordinator Relationship Specialty Start Date End Date Rodrigo Moreno MD [address] [place] [id number] [email or web address] PCP - General 02/19/17 Additional Source Comments The information contained in this document represents components of the legal health record. It is not the complete legal health record.[facility]
[2024-10-16 08:38] LABS: Hematocrit 42.6 % (37.0-47.0); Hemoglobin 14.6 g/dl (12.0-16.0); Imm Gran Abs Auto 0.03 X10*3/uL (0.00-0.03); Imm Gran Pct Auto 0.5 % (0.0-0.4); Lymphocytes Absolute Auto 1.7 X10*3/uL (1.2-4.9); Mean Corpuscular HGB Conc 34.3 g/dl (31.0-35.0); Mean Corpuscular Hemoglobin 32.5 pg (27.0-33.0); Mean Corpuscular Volume 94.9 fL (80.0-98.0); NRBC Abs Auto 0.000 X10*3/uL (0.0-0.012); NRBC Pct Auto 0.0 /100WBC (0.0-0.2); Platelet Count 229 X10*3/uL (160-400); Red Blood Count 4.49 X10*6/uL (4.20-5.50); White Blood Count 6.4 X10*3/uL (4.8-10.8)
[2024-10-16 08:42] LABS: INTERNATIONAL NORM RATIO 1.2 (0.9-1.1); Prothrombin Time 13.7 SEC (10.9-12.4)
--- NOTE | 2024-10-16 08:47 | PC.NURSE ---
bilateral IV established, patient in afib rvr. verbal order for adenosine 6mg to be pulled. crash cart in room, pads applied. patient continues to be asymptomatic. awaiting provider at this time
--- NOTE | 2024-10-16 08:48 | ECG_ITS ---
Test Reason : PALP Blood Pressure : */* mmHG Vent. Rate : 151 BPM Atrial Rate : * BPM P-R Int : * ms QRS Dur : 82 ms QT Int : 350 ms P-R-T Axes : * -14 144 degrees QTcB Int : 554 ms Atrial fibrillation with rapid ventricular response Nonspecific ST and T wave abnormality Abnormal ECG When compared with ECG of 29-Jun-2024 20:30, Atrial fibrillation has replaced Sinus rhythm Vent. rate has increased by 84 bpm Referred By: Amirah Linares Electronically Signed By: LIZET MAGALLON
[2024-10-16 08:54] LABS: Alanine Aminotransferase 32 U/L (0-31); Albumin Level 4.6 g/dL (3.5-5.0); Alkaline Phosphatase 51 U/L (39-117); Anion Gap 17 (12-20); Aspartate Amino Transferase 37 U/L (5-31); Blood Urea Nitrogen 12 mg/dL (9-16); Calcium 8.9 mg/dL (8.4-10.2); Carbon Dioxide 25 mmol/L (22-29); Chloride 106 mmol/L (96-108); Creatinine Clr Calc Pharmacy 57.5; Estimated Glomerular Filt Rate > 60; Potassium 4.8 mmol/L (3.3-5.1); Sodium 143 mmol/L (135-145); Total Protein 7.5 g/dL (6.5-8.0)
[2024-10-16] MEDS: Adenosine 6 MG/2 ML VIAL IVPUSH (08:59)
[2024-10-16] MEDS: Adenosine 6 MG/2 ML VIAL 12 MG IVPUSH (08:59)
[2024-10-16 09:01] LABS: Troponin-I High Sensitivity < 2.7 ng/L (<3.5-17.0)
--- NOTE | 2024-10-16 09:03 | PC.NURSE ---
provider at bedside for medication administration, 6mg followed by 12mg adenosine IV push. able to obtain repeat EKG. patient tolerated fairly, reports she had tingling in her hands, since has resolved. order placed for cardizem gtt
[2024-10-16 09:12] VITALS: BP 121/65; PULSE 127
[2024-10-16 09:18] VITALS: BP 121/65; PULSE 119
--- NOTE | 2024-10-16 09:25 | ECG_ITS ---
Test Reason : TACHY Blood Pressure : */* mmHG Vent. Rate : 69 BPM Atrial Rate : 79 BPM P-R Int : 160 ms QRS Dur : 84 ms QT Int : 410 ms P-R-T Axes : 19 -17 -34 degrees QTcB Int : 439 ms Atrial fibrillation and sinus rhthm in different parts of EKG Abnormal ECG When compared with ECG of 16-Oct-2024 08:56, Rhythm change Referred By: Amirah Linares Electronically Signed By: LIZET MAGALLON
[2024-10-16 09:37] VITALS: BP 123/66; PULSE 104; RESP 18; O2SAT 96
--- NOTE | 2024-10-16 10:28 | P.HPHOSP_ITS ---
History of Present Illness Date of Service: 10/16/24 Chief Complaint: palpitations 73F PMH Oozoz-Cfhkehhij-Fhgcp status post ablation, SVT, paroxysmal atrial fibrillation on Xarelto, nonobstructive CAD presented with palpitations. Patient states that she has been having on and off episodes of AFib for the past week. On a.m. of admission this woke patient up from sleep and did not resolve so came to ED. In ED found to be in rapid AFib and 180s. At the time unclear if SVT or AFib was given adenosine patient slowed to 120s aflutter, now placed on a diltiazem drip. Denies chest pain, shortness of breath, fever, chills. Review of Systems 2 Review of Systems: Yes all other systems are reviewed and are negative [facility] Medical History Abnormal Pap smear of cervix Elevated cholesterol CAD (coronary artery disease) Dysphagia COVID-19 virus infection WPW (Vevso-Cworfhlzu-Plxsl syndrome) Elevated coronary artery calcium score SVT (supraventricular tachycardia) Hyperlipidemia Family History Father Gastric cancer Mother CVD (cardiovascular disease) Surgical History History of surgery on wrist History of surgical removal of ganglion cyst Hx of foot surgery History of esophagogastroduodenoscopy (EGD) H/O colonoscopy History of cardiac radiofrequency ablation Social History Alcohol intake: never Patient Tobacco Use Status: Former Tobacco user Tobacco use type: Cigarette Years Smoked: 10 Advance Directives: Yes Advance Directives Information Provided: Yes Advance Directives on File: No Current occupational status: retired Current occupation: right handed Sexual orientation: Straight/Heterosexual Gender identity: Female Meds Allergies Allergy/AdvReac Type Severity Reaction Status Date / Time amoxicillin (AMOXICILLIN) Allergy Unknown HIVES Verified 10/16/24 08:18 nickel Allergy Rash Verified 10/16/24 08:18 Active Medications: Current Medications Acetaminophen (Acetaminophen 325 Mg Tablet) 650 mg PO Q6H PRN PRN Reason: Pain, Mild 1-3,fever,headache Calcium Carbonate (Calcium Carbonate 750 Mg Tab.Chew) 750 mg PO Q4H PRN PRN Reason: Heartburn Diltiazem HCl 125 mg/ Sodium (Chloride) 125 mls @ 0 mls/hr IVCONT .Q0M ON LICENSE OF [facility]; Protocol Last Admin: 10/16/24 09:18 Dose: 10 mg/hr, 10 mls/hr Magnesium Hydroxide (Milk Of Magnesia 30 Ml Oral.Susp) 30 ml PO DAILY PRN PRN Reason: Constipation Melatonin (Melatonin 3 Mg Tablet) 6 mg PO BEDTIME PRN PRN Reason: Insomnia Sodium Chloride (0.9 % Sodium Chloride Flush 3 Ml Syringe) 3 ml IVFLUSH QSHIFT ON LICENSE OF [facility] Home Medications ?Medication ?Instructions ?Recorded ?Confirmed ?Last Taken ?Type multivitamin 1 tab PO DAILY 08/27/2006/17 Unknown History Physical Exam 2 Vital Signs and Narrative: Vital Signs: Last Vital Signs Temp 97.4 F 10/16/24 08:16 Pulse 104 H 10/16/24 09:37 Resp 18 10/16/24 09:37 BP 123/66 10/16/24 09:37 Pulse Ox 96 10/16/24 09:37 O2 Del Method Room Air 10/16/24 09:37 BMI result Body Mass Index 26.1 General: AO X 3, no acute distress Resp: CTA bilateral, no accessory muscles used CVS: S1,S2,irregular GI: soft, non tender, non distended Neuro: motor grossly intact, alert Psych: appropriate affect, appropriate insight Results Labs 10/16/24 08:32 10/16/24 08:32 Labs: Laboratory Results - last 24 hr 10/16/24 10/16/24 08:31 08:32 MCV 94.9 MCH 32.5 MCHC 34.3 RDW 12.9 Plt Count 229 MPV 8.8 L Immature Gran % (Auto) 0.5 H Neut % (Auto) 61.1 Lymph % (Auto) 26.6 Lamar % (Auto) 11.0 Eos % (Auto) 0.5 Baso % (Auto) 0.3 Lymph # (Auto) 1.7 Lamar # (Auto) 0.7 Eos # (Auto) 0.0 Baso # (Auto) 0.0 Abs Immat Gran (auto) 0.03 Absolute Neuts (auto) 3.9 Absolute Nucleated RBC 0.000 Nucleated RBC % (auto) 0.0 PT 13.7 H INR 1.2 H Anion Gap 17 Estim Creat Clear Calc 57.5 Estimated GFR > 60 Random Glucose 119 H Calcium 8.9 D Total Bilirubin 0.3 AST 37 H ALT 32 H Alkaline Phosphatase 51 Total Protein 7.5 Albumin 4.6 Assessment and Plan (1) Atrial flutter: Status: Acute Plan 73F PMH Hjppt-Pahxdwbhx-Lqgml status post ablation, SVT, paroxysmal atrial fibrillation on Xarelto, nonobstructive CAD presented with palpitations Paroxysmal AFib with RVR Diltiazem drip, Xarelto, cardio eval Nonobstructive CAD Xarelto, statin DVT prophylaxis on Xarelto Full code Quality Stroke Does the patient have a stroke diagnosis?: No VTE Prior VTE?: No VTE Risk Level:: Medical - moderate - high VTE Device Contraindication: Treatment Not Indicated VTE Drug Contraindication: N/A - Med Ordered
--- NOTE | 2024-10-16 10:32 | PC.NURSE ---
faustina paused d/t hr between 50-80, continues to offer no complaints
[2024-10-16 10:33] VITALS: BP 111/70; PULSE 78
--- NOTE | 2024-10-16 10:57 | ECG_ITS ---
Test Reason : REPEAT Blood Pressure : */* mmHG Vent. Rate : 66 BPM Atrial Rate : 66 BPM P-R Int : 158 ms QRS Dur : 80 ms QT Int : 430 ms P-R-T Axes : 14 -22 -13 degrees QTcB Int : 450 ms Normal sinus rhythm Low voltage QRS Nonspecific ST and T wave abnormality Abnormal ECG When compared with ECG of 16-Oct-2024 09:29, Aberrant conduction is no longer Present Referred By: Jose Borjas Electronically Signed By: INGRID ROCHA MD
--- NOTE | 2024-10-16 11:06 | PHA.MEDREC ---
Addendum entered by Minda Flowers RPh 10/16/24 11:10: Reviewed by pharmacist Original Note: Pharmacy Consult ? Medication Reconciliation Pharmacy has completed the medication reconciliation. Confirmed Medication List with patient
--- NOTE | 2024-10-16 11:25 | PM.CNCAR ---
History of Present Illness History of Present Illness Date of Service: 10/16/24 Chief complaint: afib Narrative: This is a cardiology consultation regarding atrial fibrillation. Patient has generally seen by Dr. Arora. Last seen by our nurse practitioner earlier this year. Per notes, she had WPW ablation about 30 years ago. SVT ablation 2020. Recently, it seems that she was having frequent episodes of SVT and metoprolol dose has been gradually increased. Then during a clinic visit, she was not found to have rather atrial flutter with rapid rate. Currently, she states that she was having palpitations for the last few hours and that woke her up from sleep. She was seen in the ER and thought to be in atrial fibrillation rapid rate. Given IV Cardizem drip. Currently, she is back to normal sinus rhythm and she feels fine. Per patient preference, previously referred [facility] [place] but she is still awaiting EP appointment, for November of this year. Review of Systems Review of Systems: Yes all other systems are reviewed and are negative Constitutional: Constitutional: Reports as per HPI and Reports no additional constitutional complaints Eyes: Eyes: Reports as per HPI and Denies no additional eye complaints ENT: Denies system reviewed and no additional complaints, except as documented and Reports as per HPI Cardiovascular: Cardiovascular: Reports as per HPI, Reports no additional cardiovascular complaints, Denies acrocyanosis, Denies cool extremities, Denies chest pain, Denies leg edema, Denies lightheadedness, Denies palpitations and Reports dyspnea Respiratory: Respiratory: Reports as per HPI, Denies no additional respiratory complaints and Reports dyspnea Gastrointestinal: Gastrointestinal: Reports as per HPI and Denies no additional gastrointestinal complaints Genitourinary: Genitourinary: Reports as per HPI Musculoskeletal: Musculoskeletal: Reports no additional musculoskeletal complaints and Reports as per HPI Integumentary/Breasts: Skin/Breast: Reports system reviewed and no additional complaints, except as docu Neurologic: Reports system reviewed and no additional complaints, except as documented and Reports as per HPI Psychiatric: Psychiatric: Reports no additional psychiatric complaints and Reports as per HPI Endocrine: Endocrine: Reports no additional endocrine complaints, Reports as per HPI and Denies palpitations Hematologic/Lymphatic: Hematologic/Lymphatic: Reports no additional hematologic/lymphatic complaints and Reports as per HPI Allergic/Immunologic: Allergic/Immunologic: Reports no additional allergic/immunologic complaints and Reports as per HPI [facility] Past Medical History Medical History Abnormal Pap smear of cervix Elevated cholesterol CAD (coronary artery disease) Dysphagia COVID-19 virus infection WPW (Vcxey-Qwobiqngi-Dujwd syndrome) Elevated coronary artery calcium score SVT (supraventricular tachycardia) Hyperlipidemia Family History Family History Father Gastric cancer Mother CVD (cardiovascular disease) Surgical History Surgical History History of surgery on wrist History of surgical removal of ganglion cyst Hx of foot surgery History of esophagogastroduodenoscopy (EGD) H/O colonoscopy History of cardiac radiofrequency ablation Social History Social History Alcohol intake: never Patient Tobacco Use Status: Former Tobacco user Tobacco use type: Cigarette Years Smoked: 10 Advance Directives: Yes Advance Directives Information Provided: Yes Advance Directives on File: No Current occupational status: retired Current occupation: right handed Sexual orientation: Straight/Heterosexual Gender identity: Female Meds Allergies Allergy/AdvReac Type Severity Reaction Status Date / Time amoxicillin (AMOXICILLIN) Allergy Unknown HIVES Verified 10/16/24 08:18 nickel Allergy Rash Verified 10/16/24 08:18 Active Medications: Current Medications Acetaminophen (Acetaminophen 325 Mg Tablet) 650 mg PO Q6H PRN PRN Reason: Pain, Mild 1-3,fever,headache Atorvastatin Calcium (Atorvastatin Calcium 40 Mg Tablet) 40 mg PO DAILY LOS Calcium Carbonate (Calcium Carbonate 750 Mg Tab.Chew) 750 mg PO Q4H PRN PRN Reason: Heartburn Diltiazem HCl (Diltiazem Hcl Cd 120 Mg Cap.Er.Deg) 120 mg PO DAILY LOS; Protocol Ezetimibe (Ezetimibe 10 Mg Tablet) 10 mg PO DAILY LOS Diltiazem HCl 125 mg/ Sodium (Chloride) 125 mls @ 0 mls/hr IVCONT .Q0M LOS; Protocol Last Titration: 10/16/24 10:33 Dose: 0 mg/hr, 0 mls/hr Magnesium Hydroxide (Milk Of Magnesia 30 Ml Oral.Susp) 30 ml PO DAILY PRN PRN Reason: Constipation Melatonin (Melatonin 3 Mg Tablet) 6 mg PO BEDTIME PRN PRN Reason: Insomnia Metoprolol Succinate (Metoprolol Succinate Er 25 Mg Tab.Er.24h) 75 mg PO DAILY [facility]; Protocol Multivitamins/Vitamin C (Multivitamin Tablet) 1 tab PO DAILY [facility] Rivaroxaban (Rivaroxaban 20 Mg Tablet) 20 mg PO DAILY@1700 [facility] Sodium Chloride (0.9 % Sodium Chloride Flush 3 Ml Syringe) 3 ml IVFLUSH QSHIFT [facility] Home Medications ?Medication ?Instructions ?Recorded ?Confirmed ?Last Taken ?Type multivitamin 1 tab PO DAILY 08/27/20 10/16/24 Unknown History metoprolol succinate 25 mg 75 mg PO DAILY 10/16/24 10/16/24 10/16/24 History tablet,extended release 24 hr rosuvastatin 10 mg tablet 10 mg PO DAILY 10/16/24 10/16/24 Unknown History Physical Exam Vital Signs: Vital Signs: Last Vital Signs Temp 97.4 F 10/16/24 08:16 Pulse 78 10/16/24 10:33 Resp 18 10/16/24 09:37 BP 111/70 10/16/24 10:33 Pulse Ox 96 10/16/24 09:37 O2 Del Method Room Air 10/16/24 09:37 BMI result Body Mass Index 26.1 Const: General: comfortable and no acute distress Orientation/consciousness: patient oriented x3 HEENT: Other: Unremarkable Head: Yes normal to inspection Neck: Neck: Yes normal visual inspection Chest: Chest palpation & inspection: normal inspection of the chest Resp: Auscultation: clear to auscultation bilaterally Cardio: Palpation: normal PMI Heart sounds: S1 normal heart sound present, S2 normal heart sound present, no gallops, no murmurs and no rubs GI: Palpation (GI): Soft to palpation Back/Spine/Pelvis: Other: unremarkable Skin: General skin exam: no rashes or lesions noted Neuro: General: patient oriented x3 Extrem: General: Yes normal to inspection Psych: Mental Status: mental status grossly normal Objective Labs and Meds 10/16/24 08:32 10/16/24 08:32 Lab results: Laboratory Results - last 24 hr 10/16/24 10/16/24 08:31 08:32 WBC 6.4 RBC 4.49 Hgb 14.6 Hct 42.6 MCV 94.9 MCH 32.5 MCHC 34.3 RDW 12.9 Plt Count 229 MPV 8.8 L Immature Gran % (Auto) 0.5 H Neut % (Auto) 61.1 Lymph % (Auto) 26.6 [place] % (Auto) 11.0 Eos % (Auto) 0.5 Baso % (Auto) 0.3 Lymph # (Auto) 1.7 [place] # (Auto) 0.7 Eos # (Auto) 0.0 Baso # (Auto) 0.0 Abs Immat Gran (auto) 0.03 Absolute Neuts (auto) 3.9 Absolute Nucleated RBC 0.000 Nucleated RBC % (auto) 0.0 PT 13.7 H INR 1.2 H Sodium 143 Potassium 4.8 Chloride 106 Carbon Dioxide 25 Anion Gap 17 BUN 12 Creatinine 0.80 Estim Creat Clear Calc 57.5 Estimated GFR > 60 Random Glucose 119 H Calcium 8.9 D Total Bilirubin 0.3 AST 37 H ALT 32 H Alkaline Phosphatase 51 Troponin I High Sens < 2.7 D Total Protein 7.5 Albumin 4.6 ECG Interpretation: Initial EKGs suggestive of atrial flutter with rapid rate at 151/Min. In subsequent EKG, more consistent with atrial fibrillation at 52/Min. Nonspecific ST-T changes. Currently, in sinus rhythm. Nonspecific ST-T changes. Assessment and Plan (1) Atrial flutter with rapid ventricular response: Status: Acute Plan Cardiac studies reviewed. Myocardial perfusion imaging study from 2023 showed normal perfusion. Last echocardiogram from 2020 and that shows LVEF of 60-65%, mild diastolic dysfunction, trivial aortic regurgitation. In the current admission, initially atrial flutter with rapid rate but then appears like atrial fibrillation with slow rate. Currently in sinus rhythm. She is already awaiting EP appointment for ablation. Likely going to need flutter/fib ablation. I am not clear if she truly has recurring SVT as well independent of this. Any case, currently she is in sinus rhythm and she wants to go home. She would like to stay on the current dose of metoprolol as she gets very tired with that medication. Hence we will go up on the diltiazem dosing. Not much room for medication changes if she still gets symptoms, may need a different agent like short-term amiodarone. Continue with anticoagulation. She drinks 3 glasses of wine per day and I advised her to cut back on that. We will need to update her echocardiogram as an outpatient. She will keep her EP appointment in November. She also concurrently follows up with our group, Dr. Arora. Procedures Date of Service Date of Service: 10/16/24
--- NOTE | 2024-10-16 11:36 | P.DS_ITS ---
DS: Providers Provider Date of Service: 10/16/24 Date of admission: 10/16/24 10:02 Date of discharge: 10/16/24 Primary care physician: Rodrigo Moreno MD Consults: 10/16/24 10:12 Consult to Cardiology Routine Consulting Provider: [facility] [place] [place] [facility] Reason for consultation: aflutter rvr DS: Diagnosis Discharge Diagnosis (1) Atrial flutter with rapid ventricular response: Status: Acute DS: Summary Hospital Course Hospital Course: from initial hpi: 73F PMH Iwvsp-Twuhctvuw-Pnyud status post ablation, SVT, paroxysmal atrial fibrillation on Xarelto, nonobstructive CAD presented with palpitations. Patient states that she has been having on and off episodes of AFib for the past week. On a.m. of admission this woke patient up from sleep and did not resolve so came to ED. In ED found to be in rapid AFib and 180s. At the time unclear if SVT or AFib was given adenosine patient slowed to 120s aflutter, now placed on a diltiazem drip. Denies chest pain, shortness of breath, fever, chills. hospital course: Patient was admitted for paroxysmal AFib with rapid ventricular response. Was spent on diltiazem drip and converted normal sinus rhythm. Was seen by Cardiology recommended increasing diltiazem to 180 mg daily continuing Xarelto and following up with Cardiology as outpatient. For nonobstructive CAD continued on Xarelto and statin. Time Attestation Discharge Coordination Time (in mins): 35 Quality: Safe Use of Opioids Does Pt have an Active Cancer Diagnosis on the Problem List?: No Quality: Stroke Does the patient have a stroke diagnosis?: No Physical Exam Vital Signs: Vital Signs: Last Vital Signs Temp 97.4 F 10/16/24 08:16 Pulse 78 10/16/24 10:33 Resp 18 10/16/24 09:37 BP 111/70 10/16/24 10:33 Pulse Ox 96 10/16/24 09:37 O2 Del Method Room Air 10/16/24 09:37 BMI result Body Mass Index 26.1 Const: General: comfortable and no acute distress Orientation/consciousness: patient oriented x3 HEENT: Other: Unremarkable Head: Yes normal to inspection Neck: Neck: Yes normal visual inspection Chest: Chest palpation & inspection: normal inspection of the chest Resp: Auscultation: clear to auscultation bilaterally Cardio: Palpation: normal PMI Heart sounds: S1 normal heart sound present, S2 normal heart sound present, no gallops, no murmurs and no rubs GI: Palpation (GI): Soft to palpation Back/Spine/Pelvis: Other: unremarkable Skin: General skin exam: no rashes or lesions noted Neuro: General: patient oriented x3 Extrem: General: Yes normal to inspection Psych: Mental Status: mental status grossly normal DS: Data Data Completed and Pending Labs on day of discharge: Laboratory Results - last 24 hr 10/16/24 10/16/24 08:31 08:32 WBC 6.4 RBC 4.49 Hgb 14.6 Hct 42.6 MCV 94.9 MCH 32.5 MCHC 34.3 RDW 12.9 Plt Count 229 MPV 8.8 L Immature Gran % (Auto) 0.5 H Neut % (Auto) 61.1 Lymph % (Auto) 26.6 [place] % (Auto) 11.0 Eos % (Auto) 0.5 Baso % (Auto) 0.3 Lymph # (Auto) 1.7 [place] # (Auto) 0.7 Eos # (Auto) 0.0 Baso # (Auto) 0.0 Abs Immat Gran (auto) 0.03 Absolute Neuts (auto) 3.9 Absolute Nucleated RBC 0.000 Nucleated RBC % (auto) 0.0 PT 13.7 H INR 1.2 H Sodium 143 Potassium 4.8 Chloride 106 Carbon Dioxide 25 Anion Gap 17 BUN 12 Creatinine 0.80 Estim Creat Clear Calc 57.5 Estimated GFR > 60 Random Glucose 119 H Calcium 8.9 D Total Bilirubin 0.3 AST 37 H ALT 32 H Alkaline Phosphatase 51 Troponin I High Sens < 2.7 D Total Protein 7.5 Albumin 4.6 Discharge Plan Discharge Anticipated Discharge Date/Time: 10/16/24 11:34 Patient Disposition: Home, Self-Care Discharge Diagnosis: afib Referrals: Rodrigo Moreno MD [Primary Care Provider, Internal Medicine] - 1 Week Discharge Medications: New diltiazem HCl [Cartia XT] 180 mg capsule,extended release 24hr 180 mg PO DAILY Qty: 90 0RF Continued ezetimibe 10 mg tablet 10 mg PO DAILY Qty: 90 3RF rivaroxaban 20 mg tablet 20 mg PO DAILY Qty: 30 5RF Rx Instructions: must administer with evening meal rosuvastatin 10 mg Tablet 10 mg PO DAILY metoprolol succinate 25 mg Tablet Extended Release 24 Hr 75 mg PO DAILY multivitamin Tablet 1 tab PO DAILY Discontinued diltiazem HCl 120 mg capsule,extended release 24hr 120 mg PO DAILY Qty: 90 3RF Discharge Orders: Discharge Order (Routine); Ordered 10/16/24 Ordered By: Jose Borjas Diet: Advance to usual diet Activity on Discharge: As tolerated Stand Alone Forms: Patient Portal Discharge page Print Language: Tunisian Care Plan Goals: manage afib Health Concerns: afib Plan of Treatment: increase diltiazem to 180 Assessment: see above
[2024-10-16 11:57] VITALS: BP 121/72; PULSE 68; RESP 18; TEMP 36.8; O2SAT 98
== END 2024-10-16 11:59 | disposition home or self-care (01) | DRG 310 ==
LOC: HO.ED 09:58 → HO.EDOVER 10:06
PROVIDERS: Admitting Provider Internal Medicine; Emergency Provider Emergency Medicine; PCP Internal Medicine; Visit Provider Internal Medicine
DX: I48.92 Unspecified atrial flutter (principal); I25.10 Atherosclerotic heart disease of native coronary artery without angina pectoris; I48.0 Paroxysmal atrial fibrillation; I45.6 Pre-excitation syndrome; Z87.891 Personal history of nicotine dependence; Z79.01 Long term (current) use of anticoagulants; Z79.899 Other long term (current) drug therapy
CPT/HCPCS: 36415; 80053; 84484; 85025; 85610; 93005; 99285; J0153; J1163

== ENCOUNTER → 2024-10-16 10:02 | Outpatient (BNV) | payer MEDICARE, SELFPAY | PROVIDERS: Admitting Provider Internal Medicine; Emergency Provider Emergency Medicine; PCP Internal Medicine; Visit Provider Internal Medicine | DX: I48.92 Unspecified atrial flutter (principal) | CPT/HCPCS: 99223; 99239 ==

== ENCOUNTER → 2024-10-16 10:02 | Outpatient (BNV) | payer MEDICARE, SELFPAY | PROVIDERS: Admitting Provider Internal Medicine; Emergency Provider Emergency Medicine; PCP Internal Medicine; Visit Provider Internal Medicine | DX: I48.92 Unspecified atrial flutter (principal) | CPT/HCPCS: 93010; 99223 ==

== ENCOUNTER 2024-10-16 14:10 | Observation (INO) | payer MEDICARE, SELFPAY ==
--- NOTE | 2024-10-16 14:12 | ECG_ITS ---
Test Reason : HEART PALP Blood Pressure : */* mmHG Vent. Rate : 129 BPM Atrial Rate : 352 BPM P-R Int : * ms QRS Dur : 86 ms QT Int : 352 ms P-R-T Axes : * -25 238 degrees QTcB Int : 515 ms Atrial flutter with variable A-V block with premature ventricular or aberrantly conducted complexes Low voltage QRS ST & T wave abnormality, consider anterior ischemia Abnormal ECG When compared with ECG of 16-Oct-2024 11:08, Atrial flutter has replaced Sinus rhythm Vent. rate has increased by 63 bpm Referred By: Generic ED Physician Electronically Signed By: INGRID ROCHA MD
[2024-10-16 14:20] VITALS: BP 122/68; PULSE 129; RESP 18; TEMP 36.7; O2SAT 97; BMI 26.1
--- NOTE | 2024-10-16 14:31 | ED_ITS ---
HPI - Arrhythmia/Palpitations General Chief Complaint: Arrhythmia/Palpitations Stated Complaint: heart palpitations Time Seen by Provider: 10/16/24 14:40 Source: patient Mode of arrival: ambulatory Limitations: no limitations History of Present Illness ED Provider: Amirah Linares PA-C HPI narrative: Patient is a 73 year old assigned female at with a history of SVT, gcbvp-rbfahkrda-tmowc s/p ablation, and atrial flutter on Xarelto + cardizem + metoprolol, presenting to the emergency department today with a rapid heart rate. Patient states that she was evaluated here earlier for a rapid heart rate, was diagnosed with atrial flutter with rapid ventricular response, and started on a cardizem drip then admitted to the hospital. Patient states that she shortly after she was admitted, he converted back in Normal Sinus Rhythm and they discharged her. Patient states that she made it home, showered, and had a lobster roll then felt her heart rate spike back up. Patient denies any other complaints at this time. Related Data Home Medications ?Medication ?Instructions ?Recorded ?Confirmed multivitamin 1 tab PO DAILY 08/27/2009/18 metoprolol succinate 25 mg 75 mg PO DAILY 10/16/24 tablet,extended release 24 hr rosuvastatin 10 mg tablet 10 mg PO DAILY 10/16/2409/18 Previous Rx's ?Medication ?Instructions ?Recorded ezetimibe 10 mg tablet 10 mg PO DAILY #90 tabs 03/19 04/12 rivaroxaban 20 mg tablet 20 mg PO DAILY #30 tabs 06/17 10/10 diltiazem HCl 180 mg 180 mg PO DAILY #90 caps capsule,extended release 24 hr (Cartia XT) Allergies Allergy/AdvReac Type Severity Reaction Status Date / Time amoxicillin (AMOXICILLIN) Allergy Unknown HIVES Verified 10/16/24 14:22 nickel Allergy Rash Verified 10/16/24 14:22 Review of Systems 2 Review of Systems: Yes all other systems are reviewed and are negative Constitutional: Constitutional: Reports as per HPI and Reports no additional constitutional complaints Eyes: Eyes: Reports as per HPI and Denies no additional eye complaints ENT: Denies system reviewed and no additional complaints, except as documented and Reports as per HPI Cardiovascular: Cardiovascular: Reports as per HPI, Reports no additional cardiovascular complaints, Denies acrocyanosis, Denies cool extremities, Denies chest pain, Denies leg edema, Denies lightheadedness, Denies palpitations and Reports dyspnea Respiratory: Respiratory: Reports as per HPI, Denies no additional respiratory complaints and Reports dyspnea Gastrointestinal: Gastrointestinal: Reports as per HPI and Denies no additional gastrointestinal complaints Genitourinary: Genitourinary: Reports as per HPI Musculoskeletal: Musculoskeletal: Reports no additional musculoskeletal complaints and Reports as per HPI Integumentary/Breasts: Skin/Breast: Reports system reviewed and no additional complaints, except as docu Neurologic: Reports system reviewed and no additional complaints, except as documented and Reports as per HPI Psychiatric: Psychiatric: Reports no additional psychiatric complaints and Reports as per HPI Endocrine: Endocrine: Reports no additional endocrine complaints, Reports as per HPI and Denies palpitations Hematologic/Lymphatic: Hematologic/Lymphatic: Reports no additional hematologic/lymphatic complaints and Reports as per HPI Allergic/Immunologic: Allergic/Immunologic: Reports no additional allergic/immunologic complaints and Reports as per HPI PMF Past Medical History Attestation statement: The following information was validated with the patient. Source: old records reviewed and nursing notes reviewed Medical History Abnormal Pap smear of cervix Elevated cholesterol CAD (coronary artery disease) Dysphagia COVID-19 virus infection WPW (Sztdq-Qvanrrehj-Svitj syndrome) Elevated coronary artery calcium score SVT (supraventricular tachycardia) Hyperlipidemia Surgical History History of surgery on wrist History of surgical removal of ganglion cyst Hx of foot surgery History of esophagogastroduodenoscopy (EGD) H/O colonoscopy History of cardiac radiofrequency ablation Family History Family History Father Gastric cancer Mother CVD (cardiovascular disease) Social History Social History Alcohol intake: never Patient Tobacco Use Status: Former Tobacco user Tobacco use type: Cigarette Years Smoked: 10 Advance Directives: Yes Advance Directives Information Provided: No Advance Directives on File: No Current occupational status: retired Current occupation: right handed Sexual orientation: Straight/Heterosexual Gender identity: Female Physical Exam 2 Vital Signs: Vital Signs: Last Vital Signs Temp 98.0 F 10/16/24 14:20 Pulse 70 10/16/24 15:05 Resp 16 10/16/24 15:05 BP 122/79 10/16/24 15:05 Pulse Ox 94 10/16/24 15:05 O2 Del Method Room Air 10/16/24 15:05 BMI result Body Mass Index 26.1 Last Vital Signs Temp 97.4 F 10/16/24 08:16 Pulse 78 10/16/24 10:33 Resp 18 10/16/24 09:37 BP 111/70 10/16/24 10:33 Pulse Ox 96 10/16/24 09:37 O2 Del Method Room Air 10/16/24 09:37 BMI result Body Mass Index 26.1 Const: General: comfortable and no acute distress O rientation/consciousness: patient oriented x3 HEENT: Other: Unremarkable Head: Yes normal to inspection Neck: Neck: Yes normal visual inspection Chest: Chest palpation & inspection: normal inspection of the chest Resp: Auscultation: clear to auscultation bilaterally Cardio: Rate: tachycardic Rhythm: abnormal rhythm irregularly irregular GI: Palpation (GI): Soft to palpation Back/Spine/Pelvis: Other: unremarkable Skin: General skin exam: no rashes or lesions noted Neuro: General: patient oriented x3 Extrem: General: Yes normal to inspection Psych: Mental Status: mental status grossly normal Course Course Course Narrative: This is a Rapid Medical Examination (RME) performed by Joanna Crystal PA-C in triage. Full HPI, ROS, assessment and treatment plan per primary provider in the Main ED. Hx: 73 yo F here for eval of palpitations since 1344. evaled for same this am, was noted to be in AFib, converted, evaluated by Cardiology and discharged home. Now experiencing palpitations again, no chest pain, shortness of breath, diaphoresis. Plan: labs, ekg Medical Decision Making Medical Decision Making MDM Narrative: Patient is a 73 year old assigned female at with a history of SVT, unkcj-wrinpxzqk-tpgzs s/p ablation, and atrial flutter on Xarelto + cardizem + metoprolol, presenting to the emergency department today with a rapid heart rate. Patient's physical exam initially showed seemingly regular tachycardia in the 180s. Patient's blood work was unremarkable. Patient's EKG showed atrial flutter with rapid ventricular response. I went to place the patient back on a cardizem drip as she was previously on earlier today however, the patient's heart rate decreased to below 100bpms. Given the patient has almost immediately bounced back with another episode of atrial flutter / fibrillation with RVR, I spoke to the hospitalist team for re- admission for continued monitoring. I spoke to the hospitalist team who agreed to admission. I explained my physical exam findings as well as all test results to the patient. I answered all questions asked by the patient. Patient and the patient's verbalized agreement and understanding with this treatment plan and re-admission. Differential Diagnosis Differential Diagnoses: The differential diagnosis associated with the presentation includes Atrial flutter with rapid ventricular response Atiral fibrillation with rapid ventricular response Admission/Observation Consideration of admission/observation: Escalation of care including admission/observation considered Patient admitted as noted in the MDM Rationale portion of this note. Consult Healthcare Provider Management of the patient was discussed with: Hospitalist (agreed to admission as noted in the MDM Rationale portion of this note. ) Lab Data [facility] Lab Attestation statement: I reviewed the patient's lab results. My interpretation of these results are in the MDM Rationale portion of this note. 10/16/24 14:49 10/16/24 14:49 Labs: Lab Results 10/16/24 Range/Units 14:49 WBC 6.4 (4.8-10.8) X10*3/uL RBC 4.38 (4.20-5.50) X10*6/uL Hgb 14.4 (12.0-16.0) g/dl Hct 41.0 (37.0-47.0) % MCV 93.6 (80.0-98.0) fL MCH 32.9 (27.0-33.0) pg MCHC 35.1 H (31.0-35.0) g/dl RDW 13.1 (11.0-16.0) % Plt Count 220 (160-400) X10*3/uL MPV 8.8 L (9.4-12.3) fL Immature Gran % (Auto) 0.3 (0.0-0.4) % Neut % (Auto) 67.4 (45-73) % Lymph % (Auto) 20.7 (20-40) % Cowley % (Auto) 11.1 H (2-11) % Eos % (Auto) 0.3 (0-4) % Baso % (Auto) 0.2 (0-2) % Lymph # (Auto) 1.3 (1.2-4.9) X10*3/uL Cowley # (Auto) 0.7 (0.1-1.2) X10*3/uL Eos # (Auto) 0.0 (0.0-0.4) X10*3/uL Baso # (Auto) 0.0 (0.0-0.2) X10*3/uL Abs Immat Gran (auto) 0.02 (0.00-0.03) X10*3/uL Absolute Neuts (auto) 4.3 (2.0-8.3) x10*3/uL Absolute Nucleated RBC 0.000 (0.0-0.012) X10*3/uL Nucleated RBC % (auto) 0.0 (0.0-0.2) /100WBC Sodium 141 (135-145) mmol/L Potassium 4.9 (3.3-5.1) mmol/L Chloride 107 (96-108) mmol/L Carbon Dioxide 21 L (22-29) mmol/L Anion Gap 18 (12-20) BUN 13 (9-16) mg/dL Creatinine 0.73 (0.5-1.4) mg/dL Estim Creat Clear Calc 63.0 Estimated GFR > 60 Random Glucose 120 H (60-115) mg/dL Calcium 8.7 (8.4-10.2) mg/dL Magnesium 1.9 (1.6-2.6) mg/dL Total Bilirubin 0.4 (0.0-1.0) mg/dL AST 57 H (5-31) U/L ALT 35 H (0-31) U/L Alkaline Phosphatase 51 (39-117) U/L Total Protein 7.8 (6.5-8.0) g/dL Albumin 4.6 (3.5-5.0) g/dL Independent Interpretation I performed an independent interpretation of an: EKG Interpretation: I independently interpreted this EKG and am in agreement with the below findings: Vent. Rate: 129 BPM Atrial Rate: 352 BPM P-R Int: * ms QRS Dur: 86 ms QT Int: 352 ms P-R-T Axes: * -25 238 degrees QTcB Int: 515 ms Atrial flutter with variable A-V block with premature ventricular or aberrantly conducted complexes Low voltage QRS ST & T wave abnormality, consider anterior ischemia When compared with ECG of 16-Oct-2024 11:08, Atrial flutter has replaced Sinus rhythm Vent. rate has increased by 63 bpm DD/ 1415 I independently interpreted this EKG and am in agreement with the below findings: Vent. Rate: 73 BPM Atrial Rate: 73 BPM P-R Int: 162 ms QRS Dur: 84 ms QT Int: 420 ms P-R-T Axes: 32 -25 214 degrees QTcB Int: [address] sinus rhythm [address] & T wave abnormality, consider anterolateral ischemia When compared with ECG of 16-Oct-2024 14:15, Sinus rhythm has replaced Atrial flutter Vent. rate has decreased by 56 bpm DD/ 1501 Critical Care Time Critical Care Time Critical Care Time: Yes Total Critical Care Time: 32 Attestation: I spent 32 minutes of Critical Care Time with this patient. This does not include time spent on separately reported billable procedures. Discharge Plan Discharge Clinical Impression: Atrial flutter Patient Disposition: Admitted As Inpatient Print Language: Persian
[2024-10-16 14:54] LABS: MANUAL DIFF FLAG NO
[2024-10-16 14:58] LABS: Hematocrit 41.0 % (37.0-47.0); Hemoglobin 14.4 g/dl (12.0-16.0); Imm Gran Abs Auto 0.02 X10*3/uL (0.00-0.03); Imm Gran Pct Auto 0.3 % (0.0-0.4); Lymphocytes Absolute Auto 1.3 X10*3/uL (1.2-4.9); Mean Corpuscular HGB Conc 35.1 g/dl (31.0-35.0); Mean Corpuscular Hemoglobin 32.9 pg (27.0-33.0); Mean Corpuscular Volume 93.6 fL (80.0-98.0); NRBC Abs Auto 0.000 X10*3/uL (0.0-0.012); NRBC Pct Auto 0.0 /100WBC (0.0-0.2); Platelet Count 220 X10*3/uL (160-400); Red Blood Count 4.38 X10*6/uL (4.20-5.50); White Blood Count 6.4 X10*3/uL (4.8-10.8)
--- NOTE | 2024-10-16 14:58 | ECG_ITS ---
Test Reason : TACHY Blood Pressure : */* mmHG Vent. Rate : 73 BPM Atrial Rate : 73 BPM P-R Int : 162 ms QRS Dur : 84 ms QT Int : 420 ms P-R-T Axes : 32 -25 214 degrees QTcB Int : 462 ms Normal sinus rhythm [address] & T wave abnormality, consider anterolateral ischemia Abnormal ECG When compared with ECG of 16-Oct-2024 14:15, Sinus rhythm has replaced Atrial flutter Vent. rate has decreased by 56 bpm Referred By: Amirah Linares Electronically Signed By: INGRID ROCHA MD
[2024-10-16 15:05] VITALS: BP 122/79; PULSE 70; RESP 16; O2SAT 94
[2024-10-16 15:14] LABS: Alanine Aminotransferase 35 U/L (0-31); Albumin Level 4.6 g/dL (3.5-5.0); Alkaline Phosphatase 51 U/L (39-117); Anion Gap 18 (12-20); Aspartate Amino Transferase 57 U/L (5-31); Blood Urea Nitrogen 13 mg/dL (9-16); Calcium 8.7 mg/dL (8.4-10.2); Carbon Dioxide 21 mmol/L (22-29); Chloride 107 mmol/L (96-108); Creatinine Clr Calc Pharmacy 63.0; Estimated Glomerular Filt Rate > 60; Magnesium 1.9 mg/dL (1.6-2.6); Potassium 4.9 mmol/L (3.3-5.1); Sodium 141 mmol/L (135-145); Total Protein 7.8 g/dL (6.5-8.0)
[2024-10-16 15:19] LABS: Troponin-I High Sensitivity 4.2 ng/L (<3.5-17.0)
--- NOTE | 2024-10-16 15:26 | P.HPHOSP_ITS ---
History of Present Illness Date of Service: 10/16/24 Chief Complaint: Palpitations 73F PMH Nydig-Kcxfivsxa-Ylcox status post ablation, SVT, paroxysmal atrial fibrillation on Xarelto, nonobstructive CAD presented with palpitations. Patient states that she has been having on and off episodes of AFib for the past week. On a.m. of admission this woke patient up from sleep and did not resolve so came to ED. In ED found to be in rapid AFib and 180s. At the time unclear if SVT or AFib was given adenosine patient slowed to 120s aflutter, now placed on a diltiazem drip. She converted to sinus rythm. Was seen by Cardiology recommended increasing diltiazem to 180 mg daily continuing Xarelto and following up with Cardiology as outpatient. Therefore patient was discharged home. She went home and ate a lobster roll and developped palpitations again has returned to the ED in atrial flutter with RVR, HR in 120s, and symptomatic--less than 2 hours after leaving the ED. She was restarted on IV cardizem drip and has she self-converted again. Review of Systems 2 Review of Systems: Gen: no fever Resp: no sob, no cough CV: no chest, no GÓMEZ, no leg edema GI: No n/v, no abd pain Neuro: No confusion Yes all other systems are reviewed and are negative [facility] Medical History Abnormal Pap smear of cervix Elevated cholesterol CAD (coronary artery disease) Dysphagia COVID-19 virus infection WPW (Oewrd-Tmzqmjgut-Kekyb syndrome) Elevated coronary artery calcium score SVT (supraventricular tachycardia) Hyperlipidemia Family History Father Gastric cancer Mother CVD (cardiovascular disease) Surgical History History of surgery on wrist History of surgical removal of ganglion cyst Hx of foot surgery History of esophagogastroduodenoscopy (EGD) H/O colonoscopy History of cardiac radiofrequency ablation Social History Alcohol intake: never Patient Tobacco Use Status: Former Tobacco user Tobacco use type: Cigarette Years Smoked: 10 Advance Directives: Yes Advance Directives Information Provided: No Advance Directives on File: No Current occupational status: retired Current occupation: right handed Sexual orientation: Straight/Heterosexual Gender identity: Female Meds Allergies Allergy/AdvReac Type Severity Reaction Status Date / Time amoxicillin (AMOXICILLIN) Allergy Unknown HIVES Verified 10/16/24 14:22 nickel Allergy Rash Verified 10/16/24 14:22 Active Medications: Current Medications Diltiazem HCl 125 mg/ Sodium (Chloride) 125 mls @ 0 mls/hr IVCONT .Q0M LOS; Protocol Home Medications ?Medication ?Instructions ?Recorded ?Confirmed ?Last Taken ?Type multivitamin 1 tab PO DAILY 08/27/2009/18 Unknown History metoprolol succinate 25 mg 75 mg PO DAILY 10/16/2410/16/24 History tablet,extended release 24 hr rosuvastatin 10 mg tablet 10 mg PO DAILY 10/16/2409/18 Unknown History Physical Exam 2 Vital Signs and Narrative: Vital Signs: Last Vital Signs Temp 98.0 F 10/16/24 14:20 Pulse 70 10/16/24 15:05 Resp 16 10/16/24 15:05 BP 122/79 10/16/24 15:05 Pulse Ox 94 10/16/24 15:05 O2 Del Method Room Air 10/16/24 15:05 BMI result Body Mass Index 26.1 Const: Other: General: AO X 3, no acute distress Resp: CTA bilateral CVS: S1,S2,RRR GI: +BS, NT, no distention Skin: No rash Neuro: motor grossly intact Psych: appropriate affect Results Labs 10/16/24 14:49 10/16/24 14:49 Labs: Laboratory Results - last 24 hr 10/16/24 14:49 MCV 93.6 MCH 32.9 MCHC 35.1 H RDW 13.1 Plt Count 220 MPV 8.8 L Immature Gran % (Auto) 0.3 Neut % (Auto) 67.4 Lymph % (Auto) 20.7 Winn % (Auto) 11.1 H Eos % (Auto) 0.3 Baso % (Auto) 0.2 Lymph # (Auto) 1.3 Winn # (Auto) 0.7 Eos # (Auto) 0.0 Baso # (Auto) 0.0 Abs Immat Gran (auto) 0.02 Absolute Neuts (auto) 4.3 Absolute Nucleated RBC 0.000 Nucleated RBC % (auto) 0.0 Anion Gap 18 Estim Creat Clear Calc 63.0 Estimated GFR > 60 Random Glucose 120 H Calcium 8.7 Magnesium 1.9 Total Bilirubin 0.4 AST 57 H ALT 35 H Alkaline Phosphatase 51 Total Protein 7.8 Albumin 4.6 Assessment and Plan Plan 73F PMH Aqmsw-Ignipippg-Rgxda status post ablation, SVT, paroxysmal atrial fibrillation on Xarelto, nonobstructive CAD presented with palpitations Paroxysmal AFib with RVR, presently on NSR Observe on tele for recurrence of symptomatic afib IV cardizem for AF with RVR Cardiology to reassess in AM NPO after midnight for possible cardioversion if persistent AFIB Xarelto for stroke prevention Nonobstructive CAD Xarelto, statin DVT prophylaxis on Xarelto Full code Quality VTE VTE Risk Level:: Medical - moderate - high VTE Device Contraindication: Treatment Not Indicated VTE Drug Contraindication: N/A - Med Ordered
[2024-10-16 16:30] VITALS: BP 114/72; PULSE 69; RESP 17; TEMP 37.1; O2SAT 97
--- NOTE | 2024-10-16 16:33 | PC.NURSE ---
This RN assumed care of patient @ 1600 Patient remains in NSR 64 bpm Denies pain and SOB Patient has Bilateraly IVs Cardizem Drip not running at this time Patient currently awaiting bed assignment
[2024-10-16 18:47] VITALS: BP 114/72; PULSE 69; RESP 17; TEMP 37.1; O2SAT 97
[2024-10-16 20:28] VITALS: BP 128/60; PULSE 76; RESP 16; TEMP 37.1; O2SAT 99
[2024-10-16 21:06] VITALS: BMI 26.1
[2024-10-16 23:44] VITALS: BP 116/66; PULSE 66; RESP 16; TEMP 36.4; O2SAT 97
[2024-10-17 04:00] VITALS: BP 127/74; PULSE 61; RESP 16; TEMP 36.9; O2SAT 98
[2024-10-17 07:39] VITALS: BP 120/74; PULSE 70; RESP 17; TEMP 36.9; O2SAT 96
--- NOTE | 2024-10-17 07:44 | PHA.MEDREC ---
Pharmacy Consult ? Medication Reconciliation Pharmacy has completed the medication reconciliation.utilized claims and discharge from 10/16/24 to complete med rec
[2024-10-17 08:42] LABS: Anion Gap 12 (12-20); Blood Urea Nitrogen 9 mg/dL (9-16); Calcium 8.7 mg/dL (8.4-10.2); Carbon Dioxide 25 mmol/L (22-29); Chloride 109 mmol/L (96-108); Creatinine Clr Calc Pharmacy 66.6; Estimated Glomerular Filt Rate > 60; Potassium 4.0 mmol/L (3.3-5.1); Sodium 142 mmol/L (135-145)
[2024-10-17] MEDS: dilTIAZem HCL CD 180 MG CAP.ER.24H PO (08:57)
[2024-10-17] MEDS: Metoprolol Succinate ER 25 MG TAB.ER.24H 75 MG PO (08:57)
--- NOTE | 2024-10-17 10:37 | P.DS_ITS ---
DS: Providers Provider Date of Service: 10/17/24 Date of admission: 10/16/24 15:24 Date of discharge: 10/17/24 Primary care physician: Rodrigo Moreno MD Consults: 10/17/24 07:18 Consult to Cardiology Routine Consulting Provider: [facility] [place] [facility] Reason for consultation: afib DS: Summary Hospital Course Hospital Course: from initial hpi: 73F PMH Rztap-Rgcsdgqci-Rghxl status post ablation, SVT, paroxysmal atrial fibrillation on Xarelto, nonobstructive CAD presented with palpitations. Patient states that she has been having on and off episodes of AFib for the past week. On a.m. of admission this woke patient up from sleep and did not resolve so came to ED. In ED found to be in rapid AFib and 180s. At the time unclear if SVT or AFib was given adenosine patient slowed to 120s aflutter, now placed on a diltiazem drip. She converted to sinus rythm. Was seen by Cardiology recommended increasing diltiazem to 180 mg daily continuing Xarelto and following up with Cardiology as outpatient. Therefore patient was discharged home. She went home and ate a lobster roll and developped palpitations again has returned to the ED in atrial flutter with RVR, HR in 120s, and symptomatic--less than 2 hours after leaving the ED. She was restarted on IV cardizem drip and has she self-converted again. hospital course: patient admitted for pafib, converted to NSR, cardiology recommended starting flecainide 100 mg b.i.d. and using an extra 100 mg if needed for recurrent AFib, will follow up outpatient with Cardiology and electrophysiology for non onstructive CAD continued on xarelto and statin. patient is feeling better and will be discharged home. Time Attestation Discharge Coordination Time (in mins): 35 Quality: Safe Use of Opioids Does Pt have an Active Cancer Diagnosis on the Problem List?: No Quality: Stroke Does the patient have a stroke diagnosis?: No Physical Exam Exam: Exam: General: AO X 3, no acute distress Resp: CTA bilateral, no accessory muscles used CVS: S1,S2,RRR GI: soft, non tender, non distended Neuro: motor grossly intact, alert Psych: appropriate affect, appropriate insight Vital Signs: Vital Signs: Last Vital Signs Temp 98.5 F 10/17/24 07:39 Pulse 70 10/17/24 07:39 Resp 17 10/17/24 07:39 BP 120/74 10/17/24 07:39 Pulse Ox 96 10/17/24 07:39 O2 Del Method Room Air 10/17/24 07:39 BMI result Body Mass Index 26.1 DS: Data Data Completed and Pending Labs on day of discharge: Laboratory Results - last 24 hr 10/16/24 10/17/24 14:49 07:49 WBC 6.4 RBC 4.38 Hgb 14.4 Hct 41.0 MCV 93.6 MCH 32.9 MCHC 35.1 H RDW 13.1 Plt Count 220 MPV 8.8 L Immature Gran % (Auto) 0.3 Neut % (Auto) 67.4 Lymph % (Auto) 20.7 Ramsey % (Auto) 11.1 H Eos % (Auto) 0.3 Baso % (Auto) 0.2 Lymph # (Auto) 1.3 Ramsey # (Auto) 0.7 Eos # (Auto) 0.0 Baso # (Auto) 0.0 Abs Immat Gran (auto) 0.02 Absolute Neuts (auto) 4.3 Absolute Nucleated RBC 0.000 Nucleated RBC % (auto) 0.0 Hold Purple Top SEE NOTE Sodium 141 142 Potassium 4.9 4.0 Chloride 107 109 H Carbon Dioxide 21 L 25 Anion Gap 18 12 BUN 13 9 Creatinine 0.73 0.69 Estim Creat Clear Calc 63.0 66.6 Estimated GFR > 60 > 60 Random Glucose 120 H 98 Calcium 8.7 8.7 Magnesium 1.9 Total Bilirubin 0.4 AST 57 H ALT 35 H Alkaline Phosphatase 51 Troponin I High Sens 4.2 D Total Protein 7.8 Albumin 4.6 Discharge Plan Discharge Anticipated Discharge Date/Time: 10/17/24 10:37 Patient Disposition: Home, Self-Care Discharge Diagnosis: pafib Referrals: Rodrigo Moreno MD [Primary Care Provider, Internal Medicine] - 1 Week Discharge Medications: New flecainide 100 mg tablet 100 mg PO Q12H Qty: 180 0RF Continued ezetimibe 10 mg tablet 10 mg PO DAILY Qty: 90 3RF rivaroxaban 20 mg tablet 20 mg PO DAILY Qty: 30 5RF Rx Instructions: must administer with evening meal rosuvastatin 10 mg Tablet 10 mg PO DAILY@1700 metoprolol succinate 25 mg Tablet Extended Release 24 Hr 75 mg PO DAILY diltiazem HCl [Cartia XT] 180 mg capsule,extended release 24hr 180 mg PO DAILY Qty: 90 0RF multivitamin Tablet 1 tab PO DAILY Discharge Orders: Discharge Order (Routine); Ordered 10/17/24 Ordered By: Jose Borjas Diet: Advance to usual diet Activity on Discharge: As tolerated Stand Alone Forms: Patient Portal Discharge page Print Language: Ecuadorean Care Plan Goals: manage afib Health Concerns: pafib Plan of Treatment: start flecainide 100mg bid, if you feel palpiations can take an extra dose of 100mg to see if it breaks, follow up with cardiology and EP Assessment: see above
[2024-10-17 11:30] VITALS: BP 128/70; PULSE 58; RESP 17; TEMP 37; O2SAT 94
--- NOTE | 2024-10-17 12:06 | MHC.CM.PN ---
KAVYA 10/17. Pt self-care, lives at home with her /HCP, he will transport her home at discharge. Pt is medically cleared for discharge today. PCP: Rodrigo Moreno
== END 2024-10-17 12:53 | disposition home or self-care (01) ==
LOC: HO.ED 15:26 → HO.EDOVER 15:36 → HO.IMC 19:29
PROVIDERS: Physician Assistant Medical; Admitting Provider Internal Medicine; Emergency Provider Emergency Medicine; PCP Internal Medicine; Visit Provider Internal Medicine
DX: I48.0 Paroxysmal atrial fibrillation (principal); I48.92 Unspecified atrial flutter; I45.6 Pre-excitation syndrome; I25.10 Atherosclerotic heart disease of native coronary artery without angina pectoris; I47.10 Supraventricular tachycardia, unspecified; Z79.01 Long term (current) use of anticoagulants; Z79.899 Other long term (current) drug therapy
CPT/HCPCS: 36415; 80048; 80053; 83735; 84484; 85025; 93005; 99222; 99285

== ENCOUNTER → 2024-10-16 15:24 | Outpatient (BNV) | payer MEDICARE, SELFPAY | PROVIDERS: Admitting Provider Internal Medicine; Emergency Provider Emergency Medicine; PCP Internal Medicine; Visit Provider Internal Medicine | DX: I48.92 Unspecified atrial flutter (principal) | CPT/HCPCS: 99222; 99239 ==

== ENCOUNTER → 2024-11-11 12:38 | Outpatient (REF) | payer MEDICARE, SELFPAY ==
--- NOTE | 2024-11-11 12:40 | CA_ITS ---
Transthoracic Echocardiogram Patient (Last, First, Middle): Olga Galvez A Gender: Female Date of : 1950 Age: 74 Procedure Date: 11/11/2024 Procedure Type: Transthoracic Echocardiogram Location: OP Height: 160.02 cm Weight: 65.77 kg BSA: 1.69 m2 Heart Rate: bpm BP: 118 / 56 mmHg Return Clerk: Referring MD: Michael Leonardo NP Symptoms: I47.1 - Supraventricular tachycardia Study Quality: Fair Conclusions: - Normal left ventricular size, thickness, systolic function, and wall motion. The visually estimated ejection fraction is between 55-60%. Diastolic function is normal for age. - Mildly increased right ventricular cavity size. There is normal right ventricular systolic function. - There is mild dilatation of the sinuses of Valsalva measuring 3.50 cm and mild dilatation of the ascending aorta measuring 3.60 cm. Findings Left Ventricle Normal left ventricular size, thickness, systolic function, and wall motion. The visually estimated ejection fraction is between 55-60%. Diastolic function is normal for age. Right Ventricle Mildly increased right ventricular cavity size. There is normal right ventricular systolic function. Atria The left atrium is moderately dilated. The right atrium is mildly dilated. Aortic Valve Normal aortic valve structure and function. There is no aortic valve stenosis. There is no aortic valve regurgitation. Mitral Valve The mitral valve appears normal. There is no mitral valve regurgitation. There is no mitral valve stenosis. Pulmonic Valve The pulmonic valve is normal. There is mild pulmonic valve regurgitation. Tricuspid Valve Normal tricuspid valve structure. There is mild to moderate tricuspid valve regurgitation. Normal right atrial pressure. Mild pulmonary hypertension is present. Great Vessels There is mild dilatation of the sinuses of Valsalva measuring 3.50 cm and mild dilatation of the ascending aorta measuring 3.60 cm. The visualized portions of the pulmonary artery and branches are normal. Venous The inferior vena cava is normal in size and collapses greater than 50% with inspiration. Pericardium/Pleural There is no evidence of pericardial effusion. Prior Study Comparison Changes noted compared to prior study dated: 10/05/2020. Mild RV dilation, mild pulm HTN. Measurements 2D Linear Measurements IVSd: 0.91 0.6-0.9/0.6-1.0 cm LVIDd: 4.90 3.9-5.3/4.2-5.9 cm LVIDd Index: 2.90 2.4-3.2/2.2-3.1 cm/m2 LVIDs: 3.33 2.0-3.6 cm LVPWd: 0.71 0.7-1.1 cm LA Diam: 4.00 2.7-3.8/3.0-4.0 cm LAIDs Index: 2.37 1.5-2.3 cm/m2 LV Mass: 164.84 67-162/88-224 g LV Mass Index: 97.54 43-95/49-115 g/m2 LVOT Diam: 2.20 3.0+(-)1.3 cm 2D Systolic Function EF 4C: 61.20 >55% EF 2C: 60.40 >55% EF BiP: 60.00 >55% Mitral Valve MV Pk E: 0.77 MV PK A: 0.45 MV Decel Time: 127.00 E/A: 1.70 E'Lateral: 12.60 E'Medial: 6.96 E/E' Med: 11.10 E/E' Lat: 6.10 PHT: 37.00 MVA PHT: 5.95 Decel [place]: 6.08 Aortic Valve AoV Pk David: 1.22 AoV Mn David: 0.81 AoV VTI: 0.26 AoV Pk Grad: 6.00 Aov Mn Grad: 3.00 KIRSTEN Cont.VTI: 2.73 LVOT LVOT Pk David: 0.76 LVOT Mn David: 0.50 LVOT VTI: 0.19 LVOT Pk Grad: 2.00 LVOT Mn Grad: 1.00 LVOT Diam: 2.20 LVOT Area: 3.80 Diastolic Function MV Pk E: 0.77 MV Pk A: 0.45 E/A: 1.70 E'Medial: 6.96 E/E' Med: 11.10 E' Laterial: 12.60 E/E' Lat: 6.10 Right Ventricle TAPSE (mm): 28.20 TVS' David: 13.70 Tricuspid Valve TR Pk David: 2.84 TR Pk Grad: 32.00 RVSP: 38.00 Great Vessels Aorta Sinus of Valsalva: 3.50 2.0-3.5 cm Ao Asc: 3.60 2.1-3.4 cm Pulmonary Veins Pulm Vein S/D 1.70 Pulmonary Valve PV Pk David: 0.73 Peak PV Grad: 2.00 Updated in Other Vendor System with Status of Final Vishnu Morelos MD electronically signed on 11/13/2024 11:22:48 PM with status of Final
--- OUTSIDE RECORDS SUMMARY | 2024-11-11 14:07 | XMS_ITS | Patient Health Record ---
Author Organization [facility] [place] Address [address] [place] [address] Care Team Providers Care Office Manager Receptionist Name Role Phone Rodrigo Moreno MD Primary Care Provider Avery Squires Unavailable [phone] Allergies Allergen (clinical drug ingredient) Drug/Non Drug [...] Disorder of joint of ankle and/or foot (736095156) Arthritis - Degenerative (719.97) Active confirmed Problem Hallux valgus (144240774) Hallux Valgus (735.0) Active confirmed Problem Hammer toe (786239021) Hammer toe (735.4) Active confirmed Problem Pain in limb (12005583) Pain in Limb (729.5) Active confirmed Plan [...] Coverage End Date Blue Benefits [address] [address] [place] [address] [id number] Olga Galvez Self - patient is the insured Medical (General) History Medical History History ICD Code measles mumps chicken pox tuberculosis Surgical History Surgery Date(Month/Year) bunionectomy right foot hammer toe ganglion cyst bunionectomy left foot 10/21/2012
--- OUTSIDE RECORDS SUMMARY | 2024-11-11 14:07 | XMS_ITS | Clinical Summary ---
Author Organization [facility] Address [address] [address] Phone Care Team Providers Care Dividend Deposit Voucher Clerk Name Role Phone Rodrigo Moreno MD Primary Care Provider [phone] Allergies Active Allergy Reactions Criticality Noted Date [...] (supraventricular tachycardia) 08/27/2023 Overview (08/27/2023): Was eval [facility] -08/10/23 had holter- + SVT highly symptomatic, did not juan manuel metoprolol switched to cardizem, ref to EPS to consider possible ablation. Educated on valsalva, and advsied to use metoprolol PRN for severe symptoms they plan on myocardial perfusion imaging to r/o progressive CAD. Follows with Dr. 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 Mother at 49 of an DC. Sister has hypothyroidism. She has two children [...] have you moved in the past 12 thu? One time 02/13/2022 Paying for Meds Answer [...] Description 12/16/2024 8:30 AM EDT Office Visit [facility] [address] [place] [address] Fuad Pearce MD [address] [place] [id number] [email or web address] 02/20/2025 1:30 PM EST Office Visit [facility] [place] [facility] [address] [place] [address] Rodrigo Moreno MD [address] [place] [address] Health Maintenance Due Date Last Done Comments SMOKING Hx and SMOKELESS TOBACCO SCREENING 10/30/1963 HEPATITIS C SCREENING 1968 COLOGUARD 10/30/1995 FIT TEST 10/30/1995 FOBT 10/30/1995 SIGMOIDOSCOPY 10/30/1995 VIRTUAL COLONOSCOPY 10/30/1995 ZOSTER VACCINES (3 of 3) 04/28/2018 019, 03/03/2018, 12/01/2017 Adult Td,Tdap Booster 11/10/2021 11/11/2011 DEPRESSION SCREENING 02/14/2024 02/13/2023 INFLUENZA VACCINE (#1) 2024 4, 01/07/2022, 11/16/2020, Additional history exists COVID-19 VACCINE ( season) 2024 01/07/2022, 04/27/2020, 04/04/2020 LIPID PANEL 09/28/2025 09/28/2020, 09/16, 09/28/2020, Additional [...] Most Recently Relevant to Health Maintenance Insurance [facility] MEDIC[facility] PPO BLUE REPLACEMENT MEDICARE PART A & B [facility] MEDICARE PPO BLUE REPLACEMENT MEDICARE PART A & B MEDICARE PART A & B [facility] MEDICARE PPO BLUE REPLACEMENT MEDICARE PART A & B [place] BLUE REPLACEMENT MEDICARE PART A & B [facility] MEDICARE PPO BLUE REPLACEMENT MEDICARE PART A & B [facility] MEDICARE PPO BLUE REPLACEMENT MEDICARE PART A & B MEDICARE PART A & [place] [address] [address] [place] [address] MEDICARE PPO BLUE REPLACEMENT MEDICARE PART A & B Care Teams Dividend Deposit Voucher Clerk Relationship Specialty Start Date End Date Rodrigo Moreno MD [address] [place] [address] [email or web address] PCP - General 02/19/17 Additional Source Comments The information contained in this document represents components of the legal health record. It is not the complete legal health record.[facility]
--- OUTSIDE RECORDS SUMMARY | 2024-11-11 14:07 | XMS_ITS | Patient Health Record ---
Author Organization [facility] Address [address] [place] [address] Care Team Providers Care Editor Greeting Card Name Role Phone Rodrigo Moreno MD Primary Care Provider Nic Romo Jr Unavailable [phone] Allergies Allergen (clinical drug ingredient) Drug/Non Drug [...] Problem Status W/U Status Risk Notes Problem 879424452 Colon cancer screening (Z12.11) Active confirmed Problem 618006269 Encounter for other preprocedural examination (Z01.818) Active confirmed Problem 77081195 Dysphagia, unspecified type (R13.10) Active confirmed Plan Of Treatment Pending Test Test Name Order Date COLONOSCOPY WITH BIOPSY 11/27/2010 Future Test Test Name Order Date COLONOSCOPY 12/06/2010 UPPER GI ENDOSCOPY 09/29/2018 COLONOSCOPY 03/14/2021 Insurance Providers Payer Name Payer Address Payer Phone Subscriber Number Group Number Insured Name Patient Relationship to Insured Coverage Start Date Coverage End Date [facility] [address] [place], [place] [id number] [place] [employer] Self - patient is the insured Medical (General) History Medical History History ICD Code Brsla-Imcqiqfez-Bakol syndrome tuberculosis colonoscopy 2010, ten-year followup 2020 Covid infection 02/23/21 Dysphagia, normal upper endoscopy 11/04 Surgical History Surgery Date(Month/Year) electrophysiology ablation foot surgery ganglion cyst
== END ==
LOC: HO.CARD 12:38
PROVIDERS: PCP Internal Medicine
DX: I47.10 Supraventricular tachycardia, unspecified (principal)
CPT/HCPCS: 93306

== ENCOUNTER → 2024-11-11 12:40 | Outpatient (BNV) | payer MEDICARE, SELFPAY | PROVIDERS: PCP Internal Medicine; Visit Provider Internal Medicine Cardiovascular Disease | DX: I37.1 Nonrheumatic pulmonary valve insufficiency (principal); I51.7 Cardiomegaly | CPT/HCPCS: 93306 ==

== ENCOUNTER 2024-12-21 08:32 | Outpatient (AMB) | payer MEDICARE, SELFPAY ==
--- OUTSIDE RECORDS SUMMARY | 2024-12-16 06:30 | XMS_ITS | Encounter Summary ---
Author Organization [facility] Address [address] [facility] [address] [place] [address] Phone Care Team Providers Care Panel Gluer Name Role Phone Rodrigo Moreno MD Primary Care Provider [phone] Encounter Details Date Type Department Care Team (Latest Contact Info) Description 12/16/2024 7:30 AM EDT Telemedicine - audio only [facility] [address] [place] [address] Fuad Pearce MD [address] [place] [address] [email or web address] SVT (supraventricular tachycardia) (Primary Dx) Social History Tobacco Use Types Packs/Day Years Used Date Smoking Tobacco: Former Cigarettes 1 10 0 08/17/1968 - 08/17/1978 Smokeless Tobacco: Never Comments:quit 40 years ago Alcohol Use Standard [...] Orientation Straight 07/18/2024 8: 27 AM EDT documented as of this encounter Progress Notes * Fuad Pearce MD - 12/16/2024 7:30 AM EDT ?Clinical Cardiac Electrophysiology Clinic Note Name:? Charlotte Galvez ??Visit Date and Time: 12/18/24 ?Primary Care Physician: Rodrigo Moreno MD [address] [place] [address] Refering Mystery Shopper: Self-Referred, Patient No address on file ?Dear Doctors, I had the pleasure of seeing Charlotte Galvez in the Cardiac Arrhythmia TeleClinic. As you know, Ms. Galvez is a pleasant 74 y.o. female with a history notable for prior SVT ablation who presents to clinic for evaluation of AF/AFL ? Ms. 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 She continued to have SVT but recently has had documetned AF/AFL. Symptoms with such. Here to discuss options. ? Patient notes compliance/adherence with all medications. Specifically denies missing anticoagulation therapy. With this, the patient denies gastritis or bleeding such as epistaxis, spontaneous ecchymsosis, hematuria, hematochezia, melena or hemopytsis. ? Otherwise on a generalized review of systems: no headaches, vision changes, cough, abdominal pain, nausea, vomiting, diarrhea, hematochezia, melena, constipation, change in bowel habits, change in urinary frequency, dysuria or hematuria. No rash or worsening joint/muscle pain. No fever, chills, nigh tsweats. No significant change in weight. ? Ms. Galvez has a past medical history of Bunion (1996), Ganglion, Hammertoe, OTHER DIAGNOSIS - PLEASE ANNOTATE. (1994), OTHER DIAGNOSIS - PLEASE ANNOTATE., Tuberculosis (1977), and Zqhuz-Lexrecfpo-Pmzgb (WPW) syndrome (1990).. In addition, has a past surgical history that includes Cardiac electrophysiology study and ablation (N/A, 1990). Ms. Galvez has a current medication list which includes the following prescription(s): ezetimibe, lorazepam, metoprolol succinate, rosuvastatin, and therapeutic multivitamin. Ms. Galvez is allergic to amoxicillin, clindamycin palmitate hcl, and nickel. ? Ms. Galvez reports that she quit smoking about 46 years ago. Her smoking use included cigarettes. She started smoking about 56 years ago. She has a 10 pack- year smoking history. She has never used smokeless tobacco. She reports current alcohol use of about 2.0 - 6.0 standard drinks of alcohol per week. She reports that she does not currently use drugs. family history includes Cancer in her father; Heart disease in her mother; Other in an other familymember; Thyroid disease in her sister. ??? In summary,charlotte is a pleasant 74 y.o. year old who presents for evaluation of symptomatic paroxysmalatrial fibrillation in the context of a possibly a persistent AP. We spoke of the nature of the issue including the etiology of atrial arrhythmias, the distinction between fibrillation and flutter and SVT and the rhythm/cardiac function/cardioembolic implications thereof. We spoke of cardioembolic risk and the patient is appropriately on AC. We spoke of rate control vs rhythm control and the meaning of both and the rationale for selecting one vs the other. We spoke of options for rhythm controlincluding the various available antiarrhythmic drugs as well as the role of catheter ablation. Pros/cons and risks/benefits of each option discussed. We specifically spoke about the expected success rates of AFib ablation, the possibility of repeat procedures and the limitations of catheter ablation. The risks and benefits of the procedure were reviewed in detail with the patient to include but not limited to bleeding (pericardial effusion, hematoma, retroperitoneal bleed), stroke or mini stroke, myocardial infarction, arrhythmia, damage to heart muscle, valves, vein or artery requiring cardiac or vascular surgery, . The possibility of needing emergent support from other services (i.e.Anesthesia, cardiac/vascular surgery, etc.) was also addressed. Of note, a shared decision tool wasutilized which provided the patient further education about this procedure. All questions answered. Ultimately, the patient wishes to consider options. We remain available to help as needed. Telephone Encounter was needed due to the following: Reason in-person visit not done: Other (please explain): preference Reason video visit not done, either via [employer]ist[employer]Edfa[employer] Zoom or Doximity: preference Virtual Visit Attestation Modality: interactive audio (phone only) Provider Location, state disclosed to patient: practice location Patient Location: home Patient State or Country: [place] Billing based on time ([id number]): Yes Total time spent on date of service (min): 62 Time spent with patient during visit (min): 62 I personally spent the total time as documented on care for this patient on the date of the encounter, of which the time spent with the patient during the encounter has been separately documented. I personally spent a total of 62 minutes on care for this patient on the date of the encounter. This includes [id number] time during the visit as well as non [id number] time spent on chart review, documentation, and care coordination. ?Thank you for allowing us to participate in Ms. Galvez's care. Please do not hesitate to contact me if I can be of any assistance. ?? Fuad Pearce MD Cardiac Electrophysiology documented in this encounter Plan of Treatment Upcoming Encounters Date Type Department Care Team (Late st Contact Info) Description 02/20/2025 1:30 PM EST Office Visit [facility] Internal Medicine [address] [place] [address] Rodrigo Moreno MD [address] [place] [address] [email or web address] documented as of this encounter Visit Diagnoses Diagnosis SVT (supraventricular tachycardia)- Primary Other specified cardiac dysrhythmias documented in this encounter Additional Health Concerns Assessment Noted Time PHQ-2 Depression Total Score: 0 02/14/20 23 9:20 AM EST documented as of this encounter Care Teams Panel Gluer Relationship Specialty Start Date End Date Rodrigo Moreno MD [address] [place] [address] PCP - General 02/19/17 documented as of this encounter Additional Source Comments The information contained in this document represents components of the legal health record. It is not the complete legal health record.[facility]
--- NOTE | 2024-12-21 08:40 | A.OFFVIS_ITS ---
Vital Signs 12/21/24 08:42 Weight 145 lb BP 122/68 Blood Pressure Location Lt brachial Position Sitting Pulse 56 Pulse Source Monitor Intake Visit Reasons: 4 mth f/up s/p ep [facility] r/s 11-10-24 Intake Note: 4 moth f/u s/p ep Engine Tester Required: No Allergies amoxicillin (AMOXICILLIN) Allergy (Unknown, Verified 12/21/24 08:43) HIVES nickel Allergy (Verified 12/21/24 08:43) Rash Medication List - Last Reconciled 12/21/24 by Torsten Arora MD diltiazem HCl CD (Cartia XT) 180 mg PO DAILY ezetimibe 10 mg PO DAILY flecainide 50 mg (1/2 x 100 mg) PO Q12H metoprolol succinate ER 75 mg (3 x 25 mg) PO DAILY multivitamin 1 tab PO DAILY rivaroxaban 20 mg PO DAILY rosuvastatin 10 mg PO DAILY@1700 HPI Comments Details: Olga comes for follow-up. She had multiple recent episodes of atrial flutter as well as atrial fibrillation. Was then started on flecainide therapy but at higher flecainide dose of 100 mg b.i.d. she was not able to function and had weakness. She also notice that a QRS prolonged down her mobile EKGs readings. We therefore reduced flecainide to 50 mg b.i.d. and since then she has been tolerating that well and has had no recurrent events. She is also on higher dose of metoprolol 75 mg daily and diltiazem 180 mg daily. She was advised to consider ablation. However she wanted to pursue ablation at [facility]. She did have a telephone consultation with them. She is still not sure as to whether she wants to undergo ablation because of the fear for complications. She is overall doing well. She has no exertional symptoms of chest pain or shortness of breath. No lightheadedness, syncope. Tolerating her medications well overall. No bleeding issues or neurologic events. [facility] Medical History (Updated 12/21/24 @ 09:38 by Torsten Arora MD) Atrial flutter with rapid ventricular response Abnormal Pap smear of cervix Elevated cholesterol CAD (coronary artery disease) Dysphagia COVID-19 virus infection WPW (Fcbdm-Gmwbizfwg-Njgad syndrome) Elevated coronary artery calcium score SVT (supraventricular tachycardia) Hyperlipidemia Surgical History History of surgery on wrist History of surgical removal of ganglion cyst Hx of foot surgery History of esophagogastroduodenoscopy (EGD) H/O colonoscopy History of cardiac radiofrequency ablation Family History Father Gastric cancer Mother CVD (cardiovascular disease) Social History Alcohol intake: never Patient Tobacco Use Status: Former Tobacco user Tobacco use type: Cigarette Years Smoked: 10 Advance Directives Date on File: 10/16/24 service: No Current occupational status: retired Current occupation: right handed Sexual orientation: Straight/Heterosexual Gender identity: Female Review of Systems Const Denies daytime sleepiness, Denies difficulty sleeping, Denies snoring, Denies stops breathing during sleep and Denies weakness Card Denies chest pain, Denies rapid heart rate, Denies irregular heart rhythm, Denies claudication, Denies leg edema, Denies lightheadedness, Denies palpitations, Denies dyspnea, Denies dyspnea on exertion, Denies orthopnea, Denies paroxysmal nocturnal dyspnea and Denies slow heart rate Resp Denies cough, Denies dyspnea, Denies dyspnea on exertion and Denies snoring GI Reports no additional complaints, Denies hematochezia, Denies change in stool character and Denies dyspepsia Musc Denies abnormal gait, Denies muscle weakness and Denies numbness Neuro Denies abnormal gait, Denies numbness and Denies weakness Endo Denies palpitations Physical Exam Vital Signs: Last Vital Signs Pulse 56 12/21/24 08:42 BP 122/68 12/21/24 08:42 Const General: cooperative, comfortable, no acute distress, alert, awake, Physically active and well groomed Nutritional Appearance: thin Orientation/consciousness: patient oriented x3 Limitations: no limitations HEENT Head: Yes normocephalic and Yes atraumatic Neck Neck: Yes trachea midline, Yes supple and Yes no JVD Resp Effort & Inspection: normal respiratory effort Auscultation: clear to auscultation bilaterally Cardio Jugular venous distension: no JVD Palpation: normal PMI Rate: regular rate Rhythm: regular rhythm Heart sounds: S1 normal heart sound present and S2 normal heart sound present Bruits: no carotid bruits Peripheral pulses: Peripheral pulses 2+ throughout GI Auscultation: normal bowel sounds Skin General skin exam: no rashes or lesions noted Neuro General: patient oriented x3 and no focal motor deficits Extrem General: Yes no clubbing, cyanosis or edema Psych Appearance: grossly normal Office Procedures EKG Details: EKGs shows sinus bradycardia at 56 beats per minute with low-voltage QRS with nonspecific ST-T changes. 72735-Pnrjghivjnnuftsri, Complete Assessment & Plan Assessment & Plan (1) Paroxysmal atrial flutter: Code(s): I48.92 - Unspecified atrial flutter Category: Medical Plan: Paroxysmal atrial flutter which has remained suppressed on current therapy with diltiazem, metoprolol as well as flecainide therapy at a lower dose. She is feeling very well. She has seen electrophysiology in [place] at [facility] and is debating to undergo ablation. I discussed the role of ablation in such situations. She also has episodes of atrial fibrillation in the past so therefore she will require combined left-sided as well as right-sided ablation. She is worried about complications. We discussed the complication rates her pretty low and procedure time is much improved with the newer technology. We discussed about potential complications associated with it. She wants to think about it and will follow up with [facility]. We discussed the benefits of ablation as that would lead to discontinuation of at least couple of her medications including Cardizem as well as flecainide. I would however given her risk factors continue with oral anticoagulation with Xarelto especially given her moderate left atrial enlargement. She understands and agrees. In future she is at risk for recurrent atrial flutter fibrillation given her anatomy and would have options with medical therapy. Would switch her to pill in the pocket approach with flecainide. Avoidance of stimulants was discussed. Stress mitigation strategies were discussed. (2) Elevated coronary artery calcium score: Comment: sees Code(s): R93.1 - Abnormal findings on diagnostic imaging of heart and coronary circulation Category: Medical Plan: Patient was elevated coronary calcium score suggestive of coronary atherosclerosis. Currently on full oral anticoagulation with Xarelto and would add advised to avoid antiplatelet therapy. Continue lipid modification with goal LDL less than 70 mg/dL. Blood pressure is well optimized. Advised to monitor it at home. Encouraged to maintain activity level as tolerated. Will follow up in the clinic in 6 months time, sooner PRN. Thank you for allowing me to partake in her care Coding Level of Care Code Est Pt Level 4 (19332) Complex EM visit Add On G2211 Diagnoses Paroxysmal atrial flutter I48.92 Elevated coronary artery calcium score R93.1 CPT Codes EKG - CPT: 57555-[id number], Complete ([id number])
[2024-12-21 08:42] VITALS: BP 122/68; PULSE 56
--- OUTSIDE RECORDS SUMMARY | 2024-12-21 08:44 | XMS_ITS | Patient Health Record ---
Author Organization [facility] Address [address] [place] [address] Care Team Providers Care Concrete Paving Machine Operator Name Role Phone Rodrigo Moreno MD Primary [...] at 5:00 p.m. the day before the procedure; Duration: 1 day 03/14/2021 Active Multivitamin Adults - [...] Problem Status W/U Status Risk Notes Problem Colon cancer screening (250449298) Colon cancer screening (Z12.11) Active confirmed Problem Pre-procedure evaluation check (735303765) Encounter for other preprocedural examination (Z01.818) Active confirmed Problem Dysphagia (14870123) Dysphagia, unspecified type (R13.10) Active confirmed Plan Of Treatment Pending Test Test Name Order Date COLONOSCOPY WITH BIOPSY 11/27/2010 Future Test Test Name Order Date COLONOSCOPY 12/06/2010 UPPER GI ENDOSCOPY 09/29/2018 COLONOSCOPY 03/14/2021 Insurance Providers Payer Name Payer Address Payer Phone Subscriber Number Group Number Insured Name Patient Relationship to Insured Coverage Start Date Coverage End Date [facility] [address] [place], [place] [id number] ALMA EAGLE Self - patient is the insured Medical (General) History Medical History History ICD Code Gjspz-Zctyodefz-Vziiz syndrome tuberculosis colonoscopy 2010, ten-year followup 2020 Covid infection 02/23/21 Dysphagia, normal upper endoscopy 11/04 Surgical History Surgery Date(Month/Year) electrophysiology ablation foot surgery ganglion cyst
--- OUTSIDE RECORDS SUMMARY | 2024-12-21 08:44 | XMS_ITS | Patient Health Record ---
Author Organization [facility] [place] Address [address] [place] [address] Care Team Providers Care Route Rider Name Role Phone Rodrigo Moreno MD Primary Care Provider Unavaila [facility] Unavailable [phone] Allergies Allergen (clinical drug ingredient) Drug/Non Drug [...] Disorder of joint of ankle and/or foot (431640624) Arthritis - Degenerative (719.97) Active confirmed Problem Hallux valgus (444312683) Hallux Valgus (735.0) Active confirmed Problem Hammer toe (876351182) Hammer toe (735.4) Active confirmed Problem Pain in limb (11378591) Pain in Limb (729.5) Active confirmed Plan [...] Coverage End Date Blue Benefits [address] [address] [place] [address] [id number] Olga Galvez Self - patient is the insured Medical (General) History Medical History History ICD Code measles mumps chicken pox tuberculosis Surgical History Surgery Date(Month/Year) bunionectomy right foot hammer toe ganglion cyst bunionectomy left foot 10/21/2012
--- OUTSIDE RECORDS SUMMARY | 2024-12-21 08:44 | XMS_ITS | Clinical Summary ---
Author Organization [facility] Address [address] [address] Phone Care Team Providers Care Process Improvement Engineer Name Role Phone Rodrigo Moreno MD Primary Care Provider [phone] Allergies Active Allergy Reactions Criticality Noted Date [...] (supraventricular tachycardia) 08/27/2023 Overview (08/27/2023): Was eval [facility] -08/10/23 had holter- + SVT highly symptomatic, did not juan manuel metoprolol switched to cardizem, ref to EPS to consider possible ablation. Educated on valsalva, and advsied to use metoprolol PRN for severe symptoms they plan on myocardial perfusion imaging to r/o progressive CAD. Follows with Dr. 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 Mother at 49 of an [place]. Sister has hypothyroidism. She has two children [...] you moved in the past 12 thu th? One time 02/13/2022 Paying for Meds Answer [...] Description 02/20/2025 1:30 PM EST Office Visit [facility] [address] [place] [address] Rodrigo Moreno MD [address] [place] [address] [email or web address] Health Maintenance Due Date Last Done Comments SMOKING Hx and SMOKELESS TOBACCO SCREENING 10/30/1963 HEPATITIS C SCREENING 1968 COLOGUARD 10/30/1995 FIT TEST 10/30/1995 FOBT 10/30/1995 SIGMOIDOSCOPY 10/30/1995 VIRTUAL COLONOSCOPY 10/30/1995 ZOSTER VACCINES (3 of 3) 04/28/2018 019, 03/03/2018, 12/01/2017 Adult Td,Tdap Booster 11/10/2021 11/11/2011 INFLUENZA VACCINE (#1) 2024 , 01/07/2022, 11/16/2020, Additional history exists COVID-19 VACCINE (2024- season) 2024 01/07/2022, 04/27/2020, 04/04/2020 LIPID PANEL 09/28/2025 09/28/2020, 09/16, 09/28/2020, Additional history exists RSV VACCINE (1 - 1-dose 75+ series) 2025 DEPRESSION SCREENING 12/13/2025 12/13/2024 MAMMOGRAM 08/03/2026 08/03/2024, 1204/2023, 01/06/2024, Additional history exists COLONOSCOPY 04/20/2031 04/19/2021, 0305/2021, 11/27/2010 COLORECTAL CANCER SCREENING 04/20/2031 PNEUMOCOCCAL VACCINES [...] Recently Relevant to Health Maintenance Results * MAMMOGRAPHY FOR RESULT ENTRY ONLY (08/03/2024 1:34 PM EDT) Historical Provider HEALTH MAINTENANCE Final Result * COLONOSCOPY FOR RESULT ENTRY ONLY (04/19/2021) Historical Gee [facility] HEALTH MAINTENANCE Edited Result - Final * Outside HDL (09/28/2020) HDL - External 75 40 - 80 mg/dL Result [facility] Historical Provider LAB BLOOD ORDERABLES Crystal l Result * HM DEXA SCAN (08/11/2018) Rodrigo Moreno MD HEALTH MAINTENANCE Edited Res ult - Final from Last 3 Months or Most Recently Relevant to Health Maintenance Insurance [facility] MEDICARE PPO BLUE REPLACEMENT MEDICARE PART A & B [facility] MEDICARE PPO BLUE REPLACEMENT MEDICARE PART A & B MEDICARE PART A & B [facility] MEDICARE PPO BLUE REPLACEMENT MEDICARE PART A & B MEDICARE PART A & B Member Subscriber Plan / Payer ( fective 2018-Present) Name:Olga Galvez Member ID:[id number] Relation to Subscriber:Self Name:Olga Galvez Subscriber ID:[id number] Payer ID:[id number] Group ID:Not on file Type:Medicare Address: [employer] [address] MEDICARE PART A & B [place] MEDICARE PART A & [place] MEDICARE PART A & B [facility] MEDICARE PPO BLUE REPLACEMENT MEDICARE PART A & B Care Teams Process Improvement Engineer Relationship Specialty Start Date End Date Rodrigo Moreno MD [address] [place] [id number] [email or web address] PCP - General 02/19/17 Additional Source Comments The information contained in this document represents components of the legal health record. It is not the complete legal health record.[facility]
== END 2024-12-21 09:06 | disposition home or self-care (01) ==
LOC: HO.HCS 08:32
PROVIDERS: PCP Internal Medicine; Visit Provider Internal Medicine Cardiovascular Disease
DX: I48.92 Unspecified atrial flutter (principal); R93.1 Abnormal findings on diagnostic imaging of heart and coronary circulation
CPT/HCPCS: 93010; 99214; G2211

== ENCOUNTER → 2024-12-21 08:32 | Outpatient (BNVA) | payer MEDICARE, SELFPAY | PROVIDERS: PCP Internal Medicine; Visit Provider Internal Medicine Cardiovascular Disease | DX: I48.92 Unspecified atrial flutter (principal); R93.1 Abnormal findings on diagnostic imaging of heart and coronary circulation | CPT/HCPCS: 93005; 99212 ==

== ENCOUNTER 2025-02-02 14:16 | Outpatient (REF) | payer MEDICARE, SELFPAY ==
--- NOTE | ~2025-02-02 | MM_ITS ---
EXAMINATION: MM DIAGNOSTIC DIGITAL BREAST TOMOSYNTHESIS, BILATERAL CLINICAL INFORMATION: 1 year follow-up for asymmetry in the lateral right breast CC view middle to posterior depth without prior sonographic correlate. COMPARISON: Mammography: Comparison is made with relevant prior exams. TECHNIQUE: Digital breast mammography with tomosynthesis is performed in both the craniocaudal and mediolateral oblique views along with computer-aided detection (CAD). FINDINGS: There are scattered areas of fibroglandular density. Left: There are no significant masses, abnormal calcifications, or other abnormalities. Right: Asymmetry lateral right breast middle depth on CC view without prior sonographic correlate is not significantly changed from priors dating back for one year. No suspicious calcifications or other abnormal findings. Results are provided to the patient at time of visit by the technologist. MM/MM tomosynthesis diagnostic BI IMPRESSION: Left: Negative. Right: Asymmetry lateral right breast middle depth on CC view without prior sonographic correlate not significantly changed for one year. Recommend one-year diagnostic follow-up to demonstrate 2 years of stability when the patient will be due for bilateral mammography. ASSESSMENT: BI-RADS Category 3: Probably benign RECOMMENDATION: 12 month diagnostic follow up This patient's information was entered into a reminder system with a target due date for their next mammogram. Electronically signed by: Ayaka Thompson DO 02/03/2025 09:43 AM ORI
--- OUTSIDE RECORDS SUMMARY | 2025-02-02 18:30 | XMS_ITS | Clinical Summary ---
Author Organization [facility] Address [address] [facility] [address] [place] [address] Phone Care Team Providers Care Meters Superintendent Name Role Phone Rodrigo Moreno MD Primary Care Provider [phone] Allergies Active Allergy Reactions Criticality Noted Date [...] needed for anxiety. 10 tablet 11/02/2023 Active rivaroxaban (XARELTO) 20 mg Tab Take 20 mg by mouth daily with dinner. Active Active Problems Problem Noted Date Diagnosed Date SVT (supraventricular tachycardia) 08/27/2023 Overview (08/27/2023): [place] [facility] [place] had holter- + SVT highly symptomatic, did not juan manuel metoprolol switched to cardizem, ref to EPS to consider possible ablation. Educated on valsalva, and advsied to use metoprolol PRN for severe symptoms they plan on myocardial perfusion imaging to r/o progressive CAD. Follows with Dr. 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 Hyperlipidemia 10/22/2017 Pure hypercholesterolemia 10/22/2017 Encounters Date Type Department Care Team Description 12/29/2024 Orders Only [facility] Cardiology [address] [place] [address] Teresa Norieag PA-C Atrial flutter, unspecified type (Primary Dx); SVT (supraventricular tachycardia); Paroxysmal atrial fibrillation 12/27/2024 Telephone [facility] [address] [place], [place] [phone] Fuad Pearce MD Patient Advise (Ramses) 12/16/2024 7:30 AM EDT Telemedicine - audio only [facility] [address] [place], [place] [phone] Fuad Pearce MD SVT (supraventricular tachycardia) (Primary [...] gastric cancer. Mother at 49 of an [place]. Sister has hypothyroidism. She has two children [...] Upcoming Encounters Date Type Department Care Team (Latest Contact Info) Description 12/29/2024 Procedure [facility] [address] [place] [address] 02/20/2025 1:30 PM EST Office Visit [facility] [address] [place] [address] Rodrigo Moreno MD [address] [place] [address] [email or web address] 04/17/2025 1:00 PM EST Appointment [facility] [address] [place] [address] Fuad Pearce MD [address] [place] [phone] [email or web address] 04/18/2025 Procedure Pass [facility] Electrophysiology Lab [address] [place] [address] 04/18/2025 12:05 PM EST Hospital Encounter [facility] Electrophysiology Lab [address] [place] [address] Fuad Pearce MD [address] [place] [phone] [email or web address] 04/18/2025 12:05 PM EST - 04/18/2025 3:55 PM EST Surgery [facility] Electrophysiology Lab [address] [place] [address] Fuad Pearce MD [address] [place] [address] [email or web address] Ablation, Atrial Fibrillation Paroxysmal Health Maintenance Due Date Last Done Comments SMOKING Hx and SMOKELESS TOBACCO SCREENING 10/30/1963 HEPATITIS C SCREENING 1968 COLOGUARD 10/30/1995 FIT TEST 10/30/1995 FOBT 10/30/1995 SIGMOIDOSCOPY 10/30/1995 VIRTUAL COLONOSCOPY 10/30/1995 ZOSTER VACCINES (3 of 3) 04/28/2018 019, 03/03/2018, 12/01/2017 Adult Td,Tdap Booster 11/10/2021 11/11/2011 CREATININE LEVEL 02/20/2024 02/19/2023, , 03/05/2022, Additional history exists INFLUENZA VACCINE (#1) 2024 , 01/07/2022, 11/16/2020, Additional history exists COVID-19 VACCINE ( - 2024- season) 2024 01/07/2022, 04/27/2020, 04/04/2020 LIPID PANEL 09/28/2025 09/28/2020, 09/16, 09/28/2020, Additional history exists RSV VACCINE (1 - 1-dose 75+ series) 2025 DEPRESSION SCREENING 12/13/2025 12/13/2024 MAMMOGRAM 08/03/2026 08/03/2024, 01/16, 01/06/2024, Additional history [...] Procedure Name Priority Date/Time Associated Diagnosis Comments MAMMOGRAPHY Routine 08/03/2024 1:34 PM EDT BD DXA SCREENING Routine 02/19/2023 8:49 AM EST Postmenopausal estrogen deficiency COMPREHENSIVE METABOLIC PANEL (CMP) Routine 03/05/2022 11:42 AM EST Paroxysmal supraventricular tachycardia Pure hypercholesterolemia COLONOSCOPY FOR RESULT ENTRY ONLY Routine 04/19/2021 OUTSIDE HDL Routine 09/28/2020 from Last 3 Months or Most Recently Relevant to Health Maintenance Results * MAMMOGRAPHY FOR RESULT ENTRY ONLY (08/03/2024 1:34 PM EDT) Historical Provider HEALTH MAINTENANCE Final Result * Comprehensive metabolic panel (03/05/2022 11:42 AM EST) Blood us Rodrigo Moreno MD LAB BLOOD BKR ORDERABLES Crystal pinzon Result [address] [address] * COLONOSCOPY FOR RESULT ENTRY ONLY (04/19/2021) Historical Provider HEALTH MAINTENANCE Edited Result - Final * Outside HDL (09/28/2020) HDL - External 75 40 - 80 mg/dL Historical Provider LAB BLOOD ORDERABLES Crystal l Result * DEXA SCAN (08/11/2018) Rodrigo Moreno MD HEALTH MAINTENANCE Edited Res ult - Final from Last 3 Months or Most Recently Relevant to Health Maintenance Insurance [place] P[place] BLUE REPLACEMENT MEDICARE PART A & B [email or web address] MEDICARE PPO BLUE REPLACEMENT MEDICARE PART A & B [place] BLUE REPLAC[place] MEDICARE PART A & B [facility] [email or web address] MEDICARE PPO BLUE REPLACEMENT MEDICARE PART A & B [facility] [email or web address] MEDICARE PPO BLUE REPLACEMENT MEDICARE PART A & [place] [address] [place] [address] MEDICARE PPO BLUE REPLACEMENT MEDICARE PART A & B [facility] [email or web address] MEDICARE PPO BLUE REPLACEMENT MEDICARE PART A & B [facility] [email or web address] MEDICARE PPO BLUE REPLACEMENT MEDICARE PART A & B [facility] [[email or web address]] MEDICARE PPO BLUE REPLACEMENT MEDICARE PART A & B Care Teams Meters Superintendent Relationship Specialty Start Date End Date Rodrigo Moreno MD [address] [place] [phone] [email or web address] PCP - General 02/19/17 Additional Source Comments The information contained in this document represents components of the legal health record. It is not the complete legal health record.[facility]
--- OUTSIDE RECORDS SUMMARY | 2025-02-02 18:30 | XMS_ITS | Patient Health Record ---
Author Organization [facility] [place] Address [address] [place] [address] Care Team Providers Care Ebd Teacher Name Role Phone Rodrigo Moreno MD Primary Care Provider Unavaila [facility] Unavailable [phone] Allergies Allergen (clinical drug ingredient) Drug/Non Drug [...] Disorder of joint of ankle and/or foot (785572244) Arthritis - Degenerative (719.97) Active confirmed Problem Hallux valgus (026991626) Hallux Valgus (735.0) Active confirmed Problem Hammer toe (641393559) Hammer toe (735.4) Active confirmed Problem Pain in limb (90158233) Pain in Limb (729.5) Active confirmed Plan [...] Coverage End Date Blue Benefits [address] [address] [place] [address] [id number] Olga Galvez Self - patient is the insured Medical (General) History Medical History History ICD Code measles mumps chicken pox tuberculosis Surgical History Surgery Date(Month/Year) bunionectomy right foot hammer toe ganglion cyst bunionectomy left foot 10/21/2012
--- OUTSIDE RECORDS SUMMARY | 2025-02-02 18:30 | XMS_ITS | Patient Health Record ---
Author Organization [facility] Address [address] [place] [address] Care Team Providers Care Restaurant Greeter Name Role Phone Rodrigo Moreno MD Primary Care Provider Nic Romo Jr Unavailable [phone] Allergies Allergen (clinical drug ingredient) Drug/Non Drug Allergy documented on EMR Reaction Allergy Type Onset Date Status nickel nickel (uncoded) Unknown Allergy Act bright amoxicillin Amoxicillin Unknown Drug Allergy Act bright Reason For Referral No Information Medications Medication SIG (Take, Route, Frequency, Duration) Notes Start Date End Date Status MiraLax (colon prep) 17 GM/SCOOP Powder mixed with Gatorade or Crystal Light Orally begin at 5:00 p.m. 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 Tobacco use is negative, alc ohol use is occasional. Tobacco use is negative, alc ohol use is occasional. Tobacco use is negative, alc ohol use is occasional. Problems Problem Type SNOMED Code ICD Code Onset Dates Problem Status W/U Status Risk Notes Problem Colon cancer screening (248634437) Colon cancer screening (Z12.11) Active confirmed Problem Pre-procedure evaluation check (457129560) Encounter for other preprocedural examination (Z01.818) Active confirmed Problem Dysphagia (37118065) Dysphagia, unspecified type (R13.10) Active confirmed Plan Of Treatment Pending Test Test Name Order Date COLONOSCOPY WITH BIOPSY 11/27/2010 Future Test Test Name Order Date COLONOSCOPY 12/06/2010 UPPER GI ENDOSCOPY 09/29/2018 COLONOSCOPY 03/14/2021 Insurance Providers Payer Name Payer Address Payer Phone Subscriber Number Group Number Insured Name Patient Relationship to Insured Coverage Start Date Coverage End Date [facility] [address] [place], [place] [id number] [place] Self - patient is the insured Medical (General) History Medical History History ICD Code Cmimn-Caqcsemgn-Shkbz syndrome tuberculosis colonoscopy 2010, ten-year followup 2020 Covid infection 02/23/21 Dysphagia, normal upper endoscopy 11/04 Surgical History Surgery Date(Month/Year) electrophysiology ablation foot surgery ganglion cyst
== END 2025-02-02 14:17 ==
LOC: HO.MAMMO 14:16
PROVIDERS: PCP Internal Medicine; Visit Provider Internal Medicine
DX: N64.89 Other specified disorders of breast (principal)
CPT/HCPCS: 77062; 77066

== ENCOUNTER → 2025-02-02 14:30 | Outpatient (BNV) | payer MEDICARE, SELFPAY | PROVIDERS: PCP Internal Medicine; Visit Provider Internal Medicine | DX: R92.8 Other abnormal and inconclusive findings on diagnostic imaging of breast (principal) | CPT/HCPCS: 77066; G0279 ==

== ENCOUNTER 2025-02-11 11:00 | Emergency (ER) | payer MEDICARE, SELFPAY ==
[2025-02-11 11:04] VITALS: BP 136/85; PULSE 123; RESP 18; TEMP 36.2; O2SAT 98; BMI 27.1
--- NOTE | 2025-02-11 11:07 | ED.GENADULT ---
HPI - General Adult General Chief complaint: Arrhythmia/Palpitations Stated complaint: high HR Time Seen by Provider: 02/11/25 12:06 Source: patient, RN notes reviewed and old records reviewed Mode of arrival: ambulatory Limitations: no limitations History of Present Illness ED Provider: Becki HPI narrative: 74-year-old female with a past medical history significant for paroxysmal AFib maintained on Xarelto presents for evaluation of palpitations. She reports that a heart rate has been elevated in AFib since last night. She reports that she took an increased dose of her flecainide at the direction of her primary doctor last night pain She is also on Cardizem and metoprolol she denies any pain or shortness of breath pain She can feel her heart racing pain She follows with Dr. Arora and has a scheduled ablation in April Related Data Home Medications ?Medication ?Instructions ?Recorded ?Confirmed multivitamin 1 tab PO DAILY 08/27/20 12/21/24 rosuvastatin 10 mg tablet 10 mg PO DAILY@1700 10/16/24 12/21/24 Previous Rx's ?Medication ?Instructions ?Recorded ezetimibe 10 mg tablet 10 mg PO DAILY #90 tabs 03/30/24 flecainide 100 mg tablet 50 mg (1/2 x 100 mg) PO Q12H #180 11/09/24 tabs metoprolol succinate 25 mg 75 mg (3 x 25 mg) PO DAILY #360 12/19/24 tablet,extended release 24 hr tabs diltiazem HCl 180 mg 180 mg PO DAILY #90 caps 01/16/25 capsule,extended release 24 hr (Cartia XT) rivaroxaban 20 mg tablet (Xarelto) 20 mg PO QPM #90 tabs 01/18/25 Allergies Allergy/AdvReac Type Severity Reaction Status Date / Time amoxicillin (AMOXICILLIN) Allergy Unknown HIVES Verified 02/11/25 11:07 nickel Allergy Rash Verified 02/11/25 11:07 Review of Systems Constitutional: Constitutional: Reports as per HPI, Denies chills, Denies fatigue, Denies fever(s) and Denies headache(s) ENT: Denies headache(s) Cardiovascular: Cardiovascular: Denies chest pain, Reports rapid heart rate, Reports irregular heart rhythm and Denies dyspnea Respiratory: Respiratory: Denies cough and Denies dyspnea Gastrointestinal: Gastrointestinal: Denies abdominal pain, Denies constipation and Denies vomiting Genitourinary: Genitourinary: Denies dysuria Neurologic: Denies headache(s) and Denies focal weakness Endocrine: Endocrine: Denies fatigue [facility] Past Medical History Medical History (Updated 02/11/25 @ 12:44 by Jerry Connell) Atrial flutter with rapid ventricular response Abnormal Pap smear of cervix Elevated cholesterol CAD (coronary artery disease) Dysphagia COVID-19 virus infection WPW (Qmvlq-Fzlyhxnwe-Zrnma syndrome) Elevated coronary artery calcium score SVT (supraventricular tachycardia) Hyperlipidemia Surgical History History of surgery on wrist History of surgical removal of ganglion cyst Hx of foot surgery History of esophagogastroduodenoscopy (EGD) H/O colonoscopy History of cardiac radiofrequency ablation Family History Family History Father Gastric cancer Mother CVD (cardiovascular disease) Social History Social History Alcohol intake: never Patient Tobacco Use Status: Former Tobacco user Tobacco use type: Cigarette Years Smoked: 10 Advance Directives: Yes Advance Directives on File: Yes Advance Directives Date on File: 10/16/24 Do you have a plan to hurt others: No Plan service: No Current occupational status: retired Current occupation: right handed Sexual orientation: Straight/Heterosexual Gender identity: Female Physical Exam ED Vital Signs: Vital Signs - 24 hr 02/11/25 11:04 02/11/25 12:20 Temperature 97.1 F 97.1 F Pulse Rate 123 H 63 Respiratory Rate 18 18 Blood Pressure 136/85 137/60 Pulse Oximetry 98 95 Oxygen Delivery Method Room Air Room Air BMI result Body Mass Index 27.1 Const General: healthy appearing, comfortable, no acute distress, alert and awake Nutritional Appearance: well nourished Orientation/consciousness: patient oriented x3 HENMT Head: Yes normocephalic and Yes atraumatic Eyes Eyelids: Yes eyelids normal Conjunctivae: conjunctivae normal Sclerae: sclerae normal Corneas: corneas normal Pupils: Equal, round and reactive pupils present EOM: EOMs intact bilaterally Neck Neck: Yes full ROM Resp Effort & Inspection: normal respiratory effort, able to speak in complete sentences, no audible wheezes and not labored Auscultation: clear to auscultation bilaterally Cardio Rate: tachycardic Rhythm: abnormal rhythm irregularly irregular Skin General skin exam: no rashes or lesions noted and elasticity normal Neuro General: patient oriented x3 Cranial nerves: Yes Equal, round and reactive pupils present and Yes Bilaterally intact EOM present Cognition (Neuro): normal cognition Extrem Other: Moving all extremities well without any obvious deformities Course Course Course Narrative: RME, this is a rapid medical exam performed by Ilya Connell please refer to primary provider for complete H&P- 74-year-old female with a past medical history significant for atrial fibrillation presents for evaluation of tachycardia. She reports that her heart rate has been 120 and above since night. She is anticoagulated on Xarelto. She follows with Dr. Arora in his plans for an in April. Plan for EKG,. Patient denies chest pain Reevaluation(s) Reevaluation #1: the patient approached triage and reports that she believes she converted to a sinus rhythm, a repeat EKG was obtained that confirmed she is back in his normal sinus rhythm. She is already anticoagulated and on antiarrhythmic medications. She is asymptomatic and has been except for the palpitations. Her labs resulted without any concerning abnormalities. She never had chest pain. At this time I feel she is safe for discharge. Time: 12:42 Medical Decision Making Medical Decision Making [facility] Narrative: 74-year-old female presents for evaluation of tachycardia and atrial fibrillation. She does have a history of atrial fibrillation. She is tachycardic to 122 in triage. Plan for EKG, basic labs. She denies chest pain. She is already anticoagulated. Differential Diagnosis Differential Diagnoses: The differential diagnosis associated with the presentation includes Arrhythmia Atrial fibrillation SVT Tachycardia Lab Data [facility] Lab Attestation statement: I reviewed the patient's lab results. no leukocytosis or anemia. Normal platelet count. No electrolyte abnormalities warranting intervention. Troponin within normal limits. 02/11/25 11:26 02/11/25 11:26 Labs: Lab Results 02/11/25 Range/Units 11:26 WBC 5.2 (4.8-10.8) X10*3/uL RBC 4.39 (4.20-5.50) X10*6/uL Hgb 14.1 (12.0-16.0) g/dl Hct 43.1 (37.0-47.0) % MCV 98.2 H (80.0-98.0) fL MCH 32.1 (27.0-33.0) pg MCHC 32.7 (31.0-35.0) g/dl RDW 13.1 (11.0-16.0) % Plt Count 205 (160-400) X10*3/uL MPV 8.6 L (9.4-12.3) fL Immature Gran % (Auto) 0.2 (0.0-0.4) % Neut % (Auto) 60.2 (45-73) % Lymph % (Auto) 26.1 (20-40) % [place] % (Auto) 12.5 H (2-11) % Eos % (Auto) 0.8 (0-4) % Baso % (Auto) 0.2 (0-2) % Lymph # (Auto) 1.4 (1.2-4.9) X10*3/uL [place] # (Auto) 0.7 (0.1-1.2) X10*3/uL Eos # (Auto) 0.0 (0.0-0.4) X10*3/uL Baso # (Auto) 0.0 (0.0-0.2) X10*3/uL Abs Immat Gran (auto) 0.01 (0.00-0.03) X10*3/uL Absolute Neuts (auto) 3.2 (2.0-8.3) x10*3/uL Absolute Nucleated RBC 0.000 (0.0-0.012) X10*3/uL Nucleated RBC % (auto) 0.0 (0.0-0.2) /100WBC Sodium 140 (135-145) mmol/L Potassium 4.1 (3.3-5.1) mmol/L Chloride 104 (96-108) mmol/L Carbon Dioxide 23 (22-29) mmol/L Anion Gap 17 (12-20) BUN 15 (9-16) mg/dL Creatinine 0.73 (0.5-1.4) mg/dL Estim Creat Clear Calc 63.2 Estimated GFR > 60 Random Glucose 117 H (60-115) mg/dL Calcium 9.3 D (8.4-10.2) mg/dL Magnesium 1.8 (1.6-2.6) mg/dL Total Bilirubin 0.3 (0.0-1.0) mg/dL AST 44 H (5-31) U/L ALT 40 H (0-31) U/L Alkaline Phosphatase 61 (39-117) U/L Troponin I High Sens 2.8 (<3.5-17.0) ng/L NT-Pro-B Natriuret Pep 1950.9 H (<300) pg/mL Total Protein 7.3 (6.5-8.0) g/dL Albumin 4.5 (3.5-5.0) g/dL TSH 1.16 (0.32-4.0) uIU/mL Independent Interpretation I performed an independent interpretation of an: EKG ( Atrial flutter with two-to-one AV conduction) Discharge Plan Discharge Clinical Impression: Atrial flutter Patient Disposition: Home, Self-Care Instructions: Atrial Flutter (ED) Additional Instructions: your blood work was reassuring. Your initial EKG was A flutter and you converted to a normal sinus rhythm. Take your medications as prescribed. Follow up with your primary doctor, return for new or worsening symptoms Prescriptions: No Action ezetimibe 10 mg tablet 10 mg PO DAILY Qty: 90 3RF flecainide 100 mg tablet 50 mg PO Q12H Qty: 180 0RF metoprolol succinate 25 mg tablet extended release 24 hr 75 mg PO DAILY Qty: 360 3RF diltiazem HCl [Cartia XT] 180 mg capsule,extended release 24hr 180 mg PO DAILY Qty: 90 3RF Xarelto 20 mg tablet 20 mg PO QPM Qty: 90 3RF rosuvastatin 10 mg Tablet 10 mg PO DAILY@1700 multivitamin Tablet 1 tab PO DAILY Print Language: Chilean
--- NOTE | 2025-02-11 11:08 | ECG_ITS ---
Test Reason : tachycardia Blood Pressure : */* mmHG Vent. Rate : 123 BPM Atrial Rate : 246 BPM P-R Int : * ms QRS Dur : 86 ms QT Int : 354 ms P-R-T Axes : 90 -50 254 degrees QTcB Int : 506 ms Atrial flutter with 2:1 A-V conduction Left axis deviation Pulmonary disease pattern ST & T wave abnormality, consider anterolateral ischemia Abnormal ECG When compared with ECG of 16-Oct-2024 15:01, Atrial flutter has replaced Normal sinus rhythm Referred By: Jerry Connell Electronically Signed By: INGRID ROCHA MD
[2025-02-11 11:31] LABS: MANUAL DIFF FLAG NO
[2025-02-11 11:34] LABS: Hematocrit 43.1 % (37.0-47.0); Hemoglobin 14.1 g/dl (12.0-16.0); Imm Gran Abs Auto 0.01 X10*3/uL (0.00-0.03); Imm Gran Pct Auto 0.2 % (0.0-0.4); Lymphocytes Absolute Auto 1.4 X10*3/uL (1.2-4.9); Mean Corpuscular HGB Conc 32.7 g/dl (31.0-35.0); Mean Corpuscular Hemoglobin 32.1 pg (27.0-33.0); Mean Corpuscular Volume 98.2 fL (80.0-98.0); NRBC Abs Auto 0.000 X10*3/uL (0.0-0.012); NRBC Pct Auto 0.0 /100WBC (0.0-0.2); Platelet Count 205 X10*3/uL (160-400); Red Blood Count 4.39 X10*6/uL (4.20-5.50); White Blood Count 5.2 X10*3/uL (4.8-10.8)
[2025-02-11 12:03] LABS: Troponin-I High Sensitivity 2.8 ng/L (<3.5-17.0)
--- NOTE | 2025-02-11 12:06 | ECG_ITS ---
Test Reason : omoruna Blood Pressure : */* mmHG Vent. Rate : 65 BPM Atrial Rate : 65 BPM P-R Int : 166 ms QRS Dur : 94 ms QT Int : 440 ms P-R-T Axes : 22 -24 267 degrees QTcB Int : 457 ms Normal sinus rhythm ST & T wave abnormality, consider anterolateral ischemia Abnormal ECG When compared with ECG of 11-Feb-2025 11:17, Sinus rhythm has replaced Atrial flutter Vent. rate has decreased by [address] no longer depressed in Inferior leads ST no longer depressed in Anterior leads Nonspecific T wave abnormality, worse in Inferior leads Referred By: Jerry Connell Electronically Signed By: INGRID ROCHA MD
[2025-02-11 12:17] LABS: Alanine Aminotransferase 40 U/L (0-31); Albumin Level 4.5 g/dL (3.5-5.0); Alkaline Phosphatase 61 U/L (39-117); Anion Gap 17 (12-20); Aspartate Amino Transferase 44 U/L (5-31); Blood Urea Nitrogen 15 mg/dL (9-16); Calcium 9.3 mg/dL (8.4-10.2); Carbon Dioxide 23 mmol/L (22-29); Chloride 104 mmol/L (96-108); Creatinine Clr Calc Pharmacy 63.2; Estimated Glomerular Filt Rate > 60; Magnesium 1.8 mg/dL (1.6-2.6); Potassium 4.1 mmol/L (3.3-5.1); Sodium 140 mmol/L (135-145); Total Protein 7.3 g/dL (6.5-8.0)
[2025-02-11 12:20] VITALS: BP 137/60; PULSE 63; RESP 18; TEMP 36.2; O2SAT 95
--- NOTE | 2025-02-11 12:20 | PC.NURSE ---
pt felt herself convert to NSR and checked her rhythm using a device that links to her phone. provider aware, pt to have repeat ekg and will likely discharge from triage as she states she feels fine.
[2025-02-11 12:21] LABS: NT Pro B Type Natriuretic Pept 1950.9 pg/mL (<300)
[2025-02-11 12:45] VITALS: BP 137/60; PULSE 63; RESP 18; TEMP 36.2; O2SAT 95
--- OUTSIDE RECORDS SUMMARY | 2025-02-11 12:46 | XMS_ITS | Clinical Summary ---
Author Organization [facility] Address [address] [facility] [address] [place] [phone] Phone Care Team Providers Care Traffic Counter Name Role Phone Rodrigo Moreno MD Primary Care Provider [phone] Allergies Active Allergy Reactions Criticality Noted Date [...] (supraventricular tachycardia) 08/27/2023 Overview (08/27/2023): Was al [facility] Cardiology -08/10/23 had holter- + SVT highly symptomatic, did not juan manuel metoprolol switched to cardizem, ref to EPS to consider possible ablation. Educated on valsalva, and advsied to use metoprolol PRN for severe symptoms they plan on myocardial perfusion imaging to r/o progressive CAD. Follows with Dr. Nieto History of Mrrut-Ixugtuixf-Ucmgb (WPW) syndrome 10/22/2017 Hyperlipidemia 10/22/2017 Pure hypercholesterolemia 10/22/2017 Encounters Date Type Department Care Team Description 02/03/2025 Orders Only [facility] [address] [place] [address] Provider, MD Gris 12/29/2024 Orders Only [facility] Cardiology [address] [id number] Teresa Noriega PA-C Atrial flutter, unspecified type (Primary Dx); SVT (supraventricular tachycardia); Paroxysmal atrial fibrillation 12/27/2024 Telephone [facility] Arrhythmia Service at the [facility] [address] [phone] Fuad Pearce MD Patient Advise (Ramses) 12/16/2024 7:30 AM EDT Telemedicine - audio only [facility] Arrhythmia Service at the [facility] [address] [phone] Fuad Pearce MD SVT (supraventricular tachycardia) (Primary [...] gastric cancer. Mother at 49 of an [place]. Sister has hypothyroidism. She has two children [...] Procedure [facility] [address] [place] [address] 02/20/2025 1:30 PM EST Office Visit [facility] [address] [place] [address] Rodrigo Moreno MD [address] [place] [address] [email or web address] 04/17/2025 1:00 PM EST Appointment [facility] [address] [place] [address] Fuad Pearce MD [address] [place] [address] [email or web address] 04/18/2025 Procedure Pass [facility] Electrophysiology Lab [address] [place] [address] 04/18/2025 12:05 PM EST Hospital Encounter [facility] Electrophysiology Lab [address] [place] [address] Fuad Pearce MD [address] [place] [phone] [email or web address] 04/18/2025 12:05 PM EST - 04/18/2025 3:55 PM EST Surgery [facility]iology [facility] [address] [place] [address] Fuad Pearce MD [address] [place] [phone] [email or web address] Ablation, Atrial Fibrillation Paroxysmal Health Maintenance Due [...] series) 2025 DEPRESSION SCREENING 12/13/2025 12/13/2024 MAMMOGRAM 02/02/2027 02/02/2025, 07/17, 01/29/2024, Additional history exists COLONOSCOPY 04/20/2031 04/19/2021, 030 05/2021, 11/27/2010 COLORECTAL CANCER SCREENING 04/20/2031 PNEUMOCOCCAL [...] Date/Time Associated Diagnosis Comments HM MAMMOGRAPHY Routine 02/02/2025 12:57 PM EST BD DXA SCREENING Routine 02/19/2023 8:49 AM EST Postmenopausal estrogen deficiency COMPREHENSIVE METABOLIC PANEL (CMP) Routine 03/05/2022 11:42 AM EST Paroxysmal supraventricular tachycardia Pure hypercholesterolemia COLONOSCOPY FOR RESULT ENTRY ONLY Routine 04/19/2021 OUTSIDE HDL Routine 09/28/2020 from Last 3 Months or Most Recently Relevant to Health Maintenance Results * HM MAMMOGRAPHY FOR RESULT ENTRY ONLY (02/02/2025 12:57 PM EST) Historical Provider HEALTH MAINTENANCE Final Result * Comprehensive metabolic panel (03/05/2022 11:42 AM EST) Blood Rodrigo Moreno MD LAB BLOOD BKR ORDERABLES Crystal l Result [facility] [address] [place] [address] * COLONOSCOPY FOR RESULT ENTRY ONLY (04/19/2021) [...] BLUE REPLACEMENT MEDICARE PART A & B [facility] MEDICARE PPO BLUE REPLACEMENT MEDICARE PART A & B Member Subscriber Plan / Payer (Ef fective 2018-Present) Name:Olga Galvez Member ID:[id number] Relation to Subscriber:Self Name:Olga Galvez Subscriber ID:[id number] Payer ID:[id number] Group ID:Not on file Type:Medicare [facility] [address] [facility] MEDICARE PPO BLUE REPLACEMENT MEDICARE PART A & [place] [address] [place] [address] MEDICARE PPO BLUE REPLACEMENT MEDICARE PART A & [place] [address] [place] [address] MEDICARE PPO BLUE REPLACEMENT MEDICARE PART A & B [facility] MEDICARE PPO BLUE REPLACEMENT MEDICARE PART A & B [facility] MEDICARE PPO BLUE REPLACEMENT MEDICARE PART A & B [place] MEDIC[place] P[place] BLUE REPLACEMENT MEDICARE PART A & B MEDICARE PART A & B Care Teams Traffic Counter Relationship Specialty Start Date End Date Rodrigo Moreno MD [address] [place] [id number] PCP - General 02/19/17 Additional Source Comments The information contained in this document represents components of the legal health record. It is not the complete legal health record.[facility]
--- OUTSIDE RECORDS SUMMARY | 2025-02-11 12:47 | XMS_ITS | Encounter Summary ---
Author Organization [facility] Address [address] [place] [phone] Phone Care Team Providers Care Still Worker Helper Name Role Phone Rodrigo Moreno MD Primary Care Provider [phone] Encounter Details Date Type Department Care Team (Late st Contact Info) Description 02/03/2025 Orders Only [facility] [address] [place] [address] Provider, MD Gris [facility] [place] [phone] Social History Tobacco Use Types Packs/Day Years [...] AM EDT documented as of this encounter Plan of Treatment Upcoming Encounters Date Type Department Care Team (Latest Contact Info) Description 12/29/2024 Procedure [facility] [address] [place] [address] 02/20/2025 1:30 PM EST Office Visit [facility] [address] [place] [address] Rodrigo Moreno MD [address] [place] [address] [email or web address] 04/17/2025 1:00 PM EST Appointment [facility] Radiology [address] [place] [address] Fuad Pearce MD [address] [place] [address] [email or web address] 04/18/2025 Procedure Pass [facility] Electrophysiology Lab [address] [place] [address] 04/18/2025 12:05 PM EST Hospital Encounter [facility] Electrophysiology Lab [address] [place] [phone] Fuad Pearce MD [address] [place] [phone] [email or web address] 04/18/2025 12:05 PM EST - 04/18/2025 3:55 PM EST Surgery [facility] Electrophysiology Lab [address] [place] [phone] Fuad Pearce MD [address] [place] [phone] [email or web address] Ablation, Atrial Fibrillation Paroxysmal documented as of this encounter Procedures Procedure Name Priority Date/Time Associated Diagnosis Comments MAMMOGRAPHY Routine 02/02/2025 12:57 PM EST documented in this encounter Results * MAMMOGRAPHY FOR RESULT ENTRY ONLY (02/02/2025 12:57 PM EST) us Historical Provider HEALTH MAINTENANCE Final Result documented in this encounter Visit Diagnoses Not on filedocumented in this encounter Additional Health Concerns Assessment Noted Time PHQ-2 Depression Total Score: 0 02/14/20 23 9:20 AM EST documented as of this encounter Care Teams Still Worker Helper Relationship Specialty Start Date End Date Rodrigo Moreno MD [address] [place] [address] [email or web address] PCP - General 02/19/17 documented as of this encounter Additional Source Comments The information contained in this document represents components of the legal health record. It is not the complete legal health record.[facility]
--- OUTSIDE RECORDS SUMMARY | 2025-02-11 12:47 | XMS_ITS | Patient Health Record ---
Author Organization [facility] [place] Address [address] [place] [address] Care Team Providers Care Cpc Name Role Phone Rodrigo Moreno MD Primary Care Provider Unavaila Avery Lambert Unavailable [phone] Allergies Allergen (clinical drug ingredient) Drug/Non Drug [...] Disorder of joint of ankle and/or foot (383966998) Arthritis - Degenerative (719.97) Active confirmed Problem Hallux valgus (424655386) Hallux Valgus (735.0) Active confirmed Problem Hammer toe (551801954) Hammer toe (735.4) Active confirmed Problem Pain in limb (32803805) Pain in Limb (729.5) Active confirmed Plan [...] Coverage End Date Blue Benefits [address] [address] [place] [address] [id number] Olga Galvez Self - patient is the insured Medical (General) History Medical History History ICD Code measles mumps chicken pox tuberculosis Surgical History Surgery Date(Month/Year) bunionectomy right foot hammer toe ganglion cyst bunionectomy left foot 10/21/2012
--- OUTSIDE RECORDS SUMMARY | 2025-02-11 12:47 | XMS_ITS | Patient Health Record ---
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 Tobacco use is negative, alc ohol use is occasional. Tobacco use is negative, alc ohol use is occasional. Tobacco use is negative, alc ohol use is occasional. Problems Problem Type SNOMED Code ICD Code Onset Dates Problem Status W/U Status Risk Notes Problem Colon cancer screening (978356716) Colon cancer screening (Z12.11) Active confirmed Problem Pre-procedure evaluation check (922428657) Encounter for other preprocedural examination (Z01.818) Active confirmed Problem Dysphagia (10339388) Dysphagia, unspecified type (R13.10) Active confirmed Plan Of Treatment Pending Test Test Name Order Date COLONOSCOPY WITH BIOPSY 11/27/2010 Future Test Test Name Order Date COLONOSCOPY 12/06/2010 UPPER GI ENDOSCOPY 09/29/2018 COLONOSCOPY 03/14/2021 Insurance Providers Payer Name Payer Address Payer Phone Subscriber Number Group Number Insured Name Patient Relationship to Insured Coverage Start Date Coverage End Date [facility] [address] [place], [place] [id number] Self - patient is the insured Medical (General) History Medical History History ICD Code Hbhsu-Hhjosnleq-Tinbw syndrome tuberculosis colonoscopy 2010, ten-year followup 2020 Covid infection 02/23/21 Dysphagia, normal upper endoscopy 11/04 Surgical History Surgery Date(Month/Year) electrophysiology ablation foot surgery ganglion cyst
== END 2025-02-11 12:45 | disposition home or self-care (01) ==
LOC: HO.ED 12:44
PROVIDERS: Physician Assistant; Emergency Provider Emergency Medicine; PCP Internal Medicine
DX: I48.92 Unspecified atrial flutter (principal); R00.2 Palpitations; R00.0 Tachycardia, unspecified; E78.5 Hyperlipidemia, unspecified; I48.0 Paroxysmal atrial fibrillation; Z79.01 Long term (current) use of anticoagulants; Z87.891 Personal history of nicotine dependence
CPT/HCPCS: 36415; 80053; 83735; 83880; 84443; 84484; 85025; 93005; 99283

== ENCOUNTER → 2025-02-11 11:08 | Outpatient (BNV) | payer MEDICARE, SELFPAY | PROVIDERS: Emergency Provider Emergency Medicine; PCP Internal Medicine; Visit Provider Internal Medicine Cardiovascular Disease | DX: I48.92 Unspecified atrial flutter (principal); I44.1 Atrioventricular block, second degree; Z13.6 Encounter for screening for cardiovascular disorders | CPT/HCPCS: 93010 ==